=== PATIENT | male | born 1950 | race Caucasian/White ===

== ENCOUNTER 2016-11-26 15:59 | Emergency (ER) | payer OTHER ==
[~2016-11-26] VITALS: Ht 177.8 cm; Wt 76.4 kg
[~2016-11-26 15:59] MED LIST: AMLODIPINE BESYL5 MG PO; ASCORBIC ACID500 M3 PO; ASPIR 8181 M1 PO; ASPIR-LOW81 MG PO; ASPIRIN325 MG PO; ASPIRIN81 M2 PO; ATIVAN0.5 MG PO; ATORVASTATIN CA40 MG PO; ATORVASTATIN CA80 MG PO; AUGMENTIN875 MG PO; BIDIL1 TABLET PO; C-500500 M1 PO; CARDIZEM CD,CA180 MG PO; CARDIZEM CD120 M1 PO; CARDIZEM90 MG PO; CARTIA XT180 MG PO; CEFTIN500 MG PO; CEFUROXIME500 MG PO; CHILD ASPIRIN81 M1 PO; CLOPIDOGREL75 MG PO; COLACE100 MG PO; COREG25 M1 PO; DAILY VITE1 EAC1 PO; DIABETIC T100 MG/5 M PO; DICYCLOMINE HCL10 MG PO; DILTIAZEM 24HR180 MG PO; DOCUSATE SODIU100 MG PO; DULCOLAX10 MG PR; ENDOCET 5-3251 EACH PO; ESCITALOPRAM OX20 MG PO; FLEET ENEMA-AD118 ML PR; FLORASTOR250 MG PO; FOLIC ACID1 MG PO; FUROSEMIDE20 MG PO; FUROSEMIDE40 MG PO; GABAPENTIN100 MG PO; GABAPENTIN300 MG PO; GLIPIZIDE5 MG PO; GLUCOTROL XL10 MG PO; GLUCOTROL10 MG PO; GRALISE300 MG PO; GUAIFENESI100 MG/5 M PO; IMDUR30 MG PO; IMDUR60 MG PO; ISOSORBIDE MONO30 MG PO; K-DUR20 MEQ PO; KLOR-CON M2020 MEQ PO; LANTUS 3 M100 UNITS1 SC; LASIX20 MG PO; LEVAQUIN750 MG PO; LEVEMIR100 UNIT/2 SC; LEXAPRO20 MG PO; LIPITOR40 MG PO; LIPITOR80 MG PO; LISINOPRIL10 MG PO; LISINOPRIL5 MG PO; LOPRESSOR100 M1 PO; LOPRESSOR25 MG PO; LOPRESSOR50 MG PO; LOVENOX120 MG/0.8 SC; LOW DOSE ASPIRI81 M1 PO; MECLIZINE HCL25 MG PO; MELATIN3 MG PO; METFORMIN HCL500 MG PO; METOPROLOL SUC100 MG PO; METOPROLOL TAR100 MG PO; METOPROLOL TART25 MG PO; METOPROLOL TART50 MG PO; MIRTAZAPINE30 MG PO; MORPHINE SULFAT15 M1 PO; NEURONTIN100 MG PO; NEURONTIN300 MG PO; NEURONTIN600 MG PO; NITROSTAT0.4 MG SL; NORCO 5/3251 TABLET PO; NOVOLOG 10100 UNITS/ SC; NOVOLOG PE100 UNITS/ SC; OMEPRAZOLE20 MG PO; ONE DAILY1 EAC3 PO; OXYCODONE HCL10 MG PO; OXYCODONE HCL5 MG PO; PANTOPRAZOLE SO40 MG PO; PERCOCET 5/31 TABLET PO; PHILLIPS'400 MG/5 M PO; PLAVIX75 MG PO; POTASSIUM CHLO20 ME2 PO; PRADAXA150 MG PO; PRAVASTATIN SOD40 MG PO; PREDNISONE10 MG PO; PREDNISONE20 MG PO; PRILOSEC20 MG PO; PRINIVIL10 MG PO; PRINIVIL5 MG PO; PROAIR RESPICL90 MCG IH; PROBIOTIC1 EAC1 PO; PROTONIX40 MG PO; PROVENTIL,2.5 MG/3 M IH; REMERON15 M2 PO; RYBIX ODT50 MG PO; SEROQUEL12.5 MG PO; SERTRALINE HCL25 MG PO; SERTRALINE HCL50 MG PO; SIMVASTATIN20 MG PO; SPIRIVA RESPIMAT4 GM IH; SPIRIVA1 INHALATI IH; THERAGRAN1 TABLET PO; THIAMINE HCL100 MG PO; TRAMADOL HCL50 MG PO; TRAZODONE HCL50 MG PO; ULTRAM50 MG PO; VENTOLIN HFA18 GM IH; VITAMIN D400 UNIT PO; WARFARIN SODIUM1 MG PO; XARELTO20 MG PO; ZITHROMAX Z-PA250 MG PO; ZOLOFT25 MG PO
[2016-11-26] MEDS ORDERED: PERCOCET 5/31 TABLET PO (23:23)
[2016-11-27 01:38] VITALS: BP 97/77
== END 2016-11-27 01:39 | disposition home or self-care (01) ==
LOC: EME → EDBD 15:59 → EME 15:59
DX: I73.9 Peripheral vascular disease, unspecified (principal); E08.9 Diabetes mellitus due to underlying condition without complications; M79.604 Pain in right leg; M54.2 Cervicalgia; R07.81 Pleurodynia; E11.9 Type 2 diabetes mellitus without complications; J43.9 Emphysema, unspecified; M79.7 Fibromyalgia; J44.9 Chronic obstructive pulmonary disease, unspecified; E78.5 Hyperlipidemia, unspecified; Z79.4 Long term (current) use of insulin; Z95.5 Presence of coronary angioplasty implant and graft; Z87.891 Personal history of nicotine dependence; Z88.8 Allergy status to other drugs, medicaments and biological substances
CPT/HCPCS: 71101; 72040; 93926; 93971; 99281; 99285; J1885; J2270

== ENCOUNTER 2016-11-27 22:15 | Emergency (ER) | payer OTHER ==
[~2016-11-27] VITALS: Ht 177.8 cm; Wt 76.2 kg
[2016-11-27 23:44] LABS: HEMATOCRIT 33.5 % (38.0-50.0); MCH 26.8 PG (29.0-34.0); MCV 78.8 FL (86-99); MEAN PLAT.VOLUME 10.1 uM^3 (9.0-12.4); PLATELET COUNT 234 K/uL (156-360); RBC DIS.WIDTH-CV 15.1 % (11.8-14.6); RBC DIS.WIDTH-SD 42.1 % (39-53); RED BLOOD COUNT 4.25 M/uL (4.00-5.50); WHITE BLOOD COUNT 5.4 K/uL (4.1-10.2)
[2016-11-27 23:54] LABS: CHLORIDE 109 mEq/L (99-109); POTASSIUM 4.4 mEq/L (3.7-5.4); SODIUM 137 mEq/L (136-147)
[2016-11-27 23:56] LABS: GLUCOSE 139 mg/dL (70-99)
[2016-11-27 23:57] LABS: ANION GAP 11 MEQ/L (2-14)
[2016-11-28] LABS: GFR ESTIMATE (CALCULATED) > 59 mL/min/
[2016-11-28 00:01] LABS: UREA NITROGEN (BUN) 17 mg/dL (9-23)
[2016-11-28 00:06] LABS: TROP-I INTERPRETATION NEGATIVE; TROPONIN-I 0.02 ng/mL (0.0-0.30)
[2016-11-28 06:21] LABS: TROP-I INTERPRETATION NEGATIVE; TROPONIN-I 0.02 ng/mL (0.0-0.30)
[2016-11-28 08:44] LABS: POINT-OF-CARE METER ID UU13113778
[2016-11-28 10:41] VITALS: BP 126/92
== END 2016-11-28 10:42 | disposition home or self-care (01) ==
LOC: EME 22:15
PROVIDERS: Personal Emergency Response Attendant
DX: R07.89 Other chest pain (principal); M54.89 Other dorsalgia; I73.9 Peripheral vascular disease, unspecified; I10 Essential (primary) hypertension; E78.5 Hyperlipidemia, unspecified; E11.9 Type 2 diabetes mellitus without complications; Z79.4 Long term (current) use of insulin; Z79.02 Long term (current) use of antithrombotics/antiplatelets; Z87.891 Personal history of nicotine dependence; I48.91 Unspecified atrial fibrillation
CPT/HCPCS: 71020; 80048; 82948; 84484; 85027; 93005; 99281; 99284; J1885

== ENCOUNTER 2016-12-26 15:30 | Observation (INO) | payer OTHER ==
[~2016-12-26] VITALS: Ht 177.8 cm; Wt 77.2 kg
[2016-12-26 16:05] LABS: POINT-OF-CARE METER ID UU14100415
[2016-12-26 16:19] LABS: HEMATOCRIT 34.1 % (38.0-50.0); MCH 26.6 PG (29.0-34.0); MCHC 33.7 G/DL (30.0-36.0); MCV 78.8 FL (86-99); MEAN PLAT.VOLUME 9.7 uM^3 (9.0-12.4); PLATELET COUNT 228 K/uL (156-360); RBC DIS.WIDTH-CV 14.4 % (11.8-14.6); RBC DIS.WIDTH-SD 39.7 % (39-53); RED BLOOD COUNT 4.33 M/uL (4.00-5.50)
[2016-12-26 16:30] LABS: CHLORIDE 111 mEq/L (99-109); POTASSIUM 4.7 mEq/L (3.7-5.4); SODIUM 139 mEq/L (136-147)
[2016-12-26 16:31] LABS: GLUCOSE 326 mg/dL (70-99)
[2016-12-26 16:33] LABS: ANION GAP 8 MEQ/L (2-14)
[2016-12-26 16:35] LABS: GFR ESTIMATE (CALCULATED) 43 mL/min/
[2016-12-26 16:36] LABS: UREA NITROGEN (BUN) 18 mg/dL (9-23)
[2016-12-26 16:42] LABS: TROP-I INTERPRETATION NEGATIVE; TROPONIN-I 0.04 ng/mL (0.0-0.30)
[2016-12-26] MEDS ORDERED: LASIX20 MG PO (19:17)
[2016-12-26] MEDS ORDERED: C COMPLEX500 MG PO (19:17)
[2016-12-26] MEDS ORDERED: GLIPIZIDE5 MG PO (19:18)
[2016-12-26] MEDS ORDERED: POTASSIUM CHLO20 ME2 PO (19:19)
[2016-12-26] MEDS ORDERED: METOPROLOL SUC100 MG PO (19:20)
[2016-12-26 22:20] VITALS: BP 134/101
[2016-12-26 23:22] LABS: TROP-I INTERPRETATION NEGATIVE; TROPONIN-I 0.06 ng/mL (0.0-0.30)
[2016-12-27 04:29] LABS: POINT-OF-CARE METER ID UU14162513
[2016-12-27 05:05] VITALS: BP 123/87
[2016-12-27 05:43] LABS: ANION GAP 7 MEQ/L (2-14); CHLORIDE 110 MEQ/L (99-109); GFR ESTIMATE (CALCULATED) 46 mL/min/; POTASSIUM 4.8 MEQ/L (3.7-5.4); SAMPLE HEMOLYSIS CHECK 0; SAMPLE ICTERIC CHECK 0; SAMPLE LIPEMIA CHECK 0; SODIUM 139 MEQ/L (136-147); UREA NITROGEN (BUN) 19 mg/dL (9-23)
[2016-12-27 05:45] LABS: GLUCOSE 144 mg/dL (70-99)
[2016-12-27 05:48] LABS: TROP-I INTERPRETATION NEGATIVE; TROPONIN-I 0.04 ng/mL (0.0-0.30)
[2016-12-27 09:12] VITALS: BP 129/60
[2016-12-27 11:00] VITALS: BP 118/61
[2016-12-27 16:00] VITALS: BP 117/79
[2016-12-27 19:50] VITALS: BP 119/79
[2016-12-28 03:17] VITALS: BP 113/74
[2016-12-28 09:07] VITALS: BP 109/64
[2016-12-28 12:37] VITALS: BP 120/85
[2016-12-28] MEDS ORDERED: METOPROLOL SUC100 MG PO (16:19)
[2016-12-28] MEDS ORDERED: PRINIVIL10 MG PO (16:26)
[2016-12-28] MEDS ORDERED: PROTONIX40 MG PO (16:26)
[2016-12-28] MEDS ORDERED: ISOSORBIDE MONO30 MG PO (16:26)
[2016-12-28] MEDS ORDERED: GLIPIZIDE5 MG PO (16:26)
[2016-12-28] MEDS ORDERED: NEURONTIN300 MG PO (16:26)
[2016-12-28] MEDS ORDERED: PRADAXA150 MG PO (16:26)
[2016-12-28] MEDS ORDERED: DIAZEPAM5 MG PO (16:26)
[2016-12-28] MEDS ORDERED: PLAVIX75 MG PO (16:26)
[2016-12-28] MEDS ORDERED: LASIX20 MG PO (16:26)
[2016-12-28] MEDS ORDERED: LIPITOR80 MG PO (16:26)
[2016-12-28] MEDS ORDERED: LEVEMIR100 UNIT/2 SC (16:39)
== END 2016-12-28 16:59 | disposition home or self-care (01) ==
LOC: EME 15:30 → EDOF 19:44 → 5WEST 19:44
PROVIDERS: Emergency Medicine; Family Medicine; Internal Medicine
DX: R07.9 Chest pain, unspecified (principal); F43.21 Adjustment disorder with depressed mood; Z98.61 Coronary angioplasty status; F41.1 Generalized anxiety disorder; F09 Unspecified mental disorder due to known physiological condition; R51 Headache; I48.2 Chronic atrial fibrillation; I73.9 Peripheral vascular disease, unspecified; I12.9 Hypertensive chronic kidney disease with stage 1 through stage 4 chronic kidney disease, or unspecified chronic kidney disease; E11.65 Type 2 diabetes mellitus with hyperglycemia; E11.22 Type 2 diabetes mellitus with diabetic chronic kidney disease; N18.9 Chronic kidney disease, unspecified; E78.5 Hyperlipidemia, unspecified; Z79.4 Long term (current) use of insulin; Z88.1 Allergy status to other antibiotic agents; Z88.8 Allergy status to other drugs, medicaments and biological substances
CPT/HCPCS: 71020; 80048; 82948; 84484; 85027; 93005; 99281; 99285; G0378; J1815; J2270; J7040

== ENCOUNTER 2016-12-30 02:24 | Emergency (ER) | payer OTHER ==
[~2016-12-30] VITALS: Ht 177.8 cm; Wt 79.1 kg
[~2016-12-30 02:24] MED LIST changes: +C COMPLEX500 MG PO; +DIAZEPAM5 MG PO
[2016-12-30 04:18] LABS: BASE EXCESS -5.7 mEq/L (-3 to +3); BICARBONATE 17.3 mEq/L (22-26); COMMENTS - BLOOD GASES C+; PCO2 26 mm Hg (35-45); PO2 102 mm Hg (80-100); SITE RR; TOTAL RESP RATE 23 resp/min; pH 7.43 (7.35-7.45)
[2016-12-30 04:58] LABS: MCH 26.5 PG (29.0-34.0); MCHC 33.5 G/DL (30.0-36.0); MCV 79.1 FL (86-99); MEAN PLAT.VOLUME 10.5 uM^3 (9.0-12.4); PLATELET COUNT 205 K/uL (156-360); RBC DIS.WIDTH-CV 14.5 % (11.8-14.6); RED BLOOD COUNT 4.3 M/uL (4.00-5.50); WHITE BLOOD COUNT 5.8 K/uL (4.1-10.2)
[2016-12-30 05:03] LABS: CHLORIDE 110 MEQ/L (99-109); GFR ESTIMATE (CALCULATED) 46 mL/min/; GLUCOSE 199 mg/dL (70-99); SODIUM 140 MEQ/L (136-147); UREA NITROGEN (BUN) 19 mg/dL (9-23)
[2016-12-30 05:04] LABS: CARBON DIOXIDE (BICARBONATE) 18.3 MEQ/L (20-31)
[2016-12-30 05:20] LABS: TROP-I INTERPRETATION NEGATIVE; TROPONIN-I 0.05 ng/mL (0.0-0.30)
[2016-12-30 06:50] VITALS: BP 124/85
== END 2016-12-30 06:58 | disposition home or self-care (01) ==
LOC: EME → EDBD 02:24 → EME 06:58
PROVIDERS: Emergency Medicine
DX: R07.9 Chest pain, unspecified (principal); E11.9 Type 2 diabetes mellitus without complications; E78.5 Hyperlipidemia, unspecified; I10 Essential (primary) hypertension; I25.2 Old myocardial infarction; F17.200 Nicotine dependence, unspecified, uncomplicated; Z95.5 Presence of coronary angioplasty implant and graft
CPT/HCPCS: 36600; 71020; 80048; 82009; 82803; 83605; 83880; 84484; 85027; 93005; 99281; 99285; J2270; J2405; J7030

== ENCOUNTER 2017-01-22 16:38 | Observation (INO) | payer OTHER ==
[~2017-01-22] VITALS: Ht 177.8 cm; Wt 78.0 kg
[2017-01-22 18:05] LABS: EOSINOPHIL (%) 3.5 % (0-5); EOSINOPHIL COUNT 0.2 K/uL (0-0.3); HEMATOCRIT 34.7 % (38.0-50.0); IMMATURE GRANULOCYTE (%) 0.8 % (0.0-0.7); IMMATURE GRANULOCYTE COUNT 0.5 K/uL; LYMPHOCYTE COUNT 1.5 K/uL (1.0-2.8); MCHC 32.9 G/DL (30.0-36.0); MONOCYTE (%) 12.9 % (3-12); MONOCYTE COUNT 0.8 K/uL (0-0.8); NEUTROPHIL (%) 57.5 % (45-76); NEUTROPHIL COUNT 3.6 K/uL (1.8-6.4); PLATELET COUNT 208 K/uL (156-360); RBC DIS.WIDTH-CV 15.2 % (11.8-14.6); RBC DIS.WIDTH-SD 42.2 % (39-53); RED BLOOD COUNT 4.39 M/uL (4.00-5.50); WHITE BLOOD COUNT 6.2 K/uL (4.1-10.2)
[2017-01-22 18:14] LABS: CHLORIDE 109 mEq/L (99-109); POTASSIUM 4.7 mEq/L (3.7-5.4); SODIUM 139 mEq/L (136-147)
[2017-01-22 18:15] LABS: INTER. NORMALIZED RATIO 1.2; PTT 40.5 (25-32)
[2017-01-22 18:16] LABS: GLUCOSE 76 mg/dL (70-99)
[2017-01-22 18:17] LABS: ANION GAP 10 MEQ/L (2-14)
[2017-01-22 18:20] LABS: GFR ESTIMATE (CALCULATED) 46 mL/min/; UREA NITROGEN (BUN) 25 mg/dL (9-23)
[2017-01-22 18:24] LABS: TROP-I INTERPRETATION NEGATIVE; TROPONIN-I 0.05 ng/mL (0.0-0.30)
[2017-01-22] MEDS ORDERED: PLAVIX75 MG PO (20:01)
[2017-01-22] MEDS ORDERED: LEVEMIR100 UNIT/2 SC (20:02)
[2017-01-22] MEDS ORDERED: ACIDOPHILUS LA1 EAC1 PO (20:03)
[2017-01-22] MEDS ORDERED: LO-DOSE ASPIRIN81 M1 PO (20:05)
[2017-01-22 20:20] LABS: POINT-OF-CARE METER ID UU13113702
[2017-01-22 21:19] LABS: INFLUENZA A VIRAL ANTIGEN NEGATIVE; INFLUENZA B VIRAL ANTIGEN NEGATIVE
[2017-01-22 21:43] VITALS: BP 157/97
[2017-01-23 00:06] LABS: TROP-I INTERPRETATION NEGATIVE; TROPONIN-I 0.07 ng/mL (0.0-0.30)
[2017-01-23 00:12] VITALS: BP 127/81
[2017-01-23 04:41] VITALS: BP 124/83
[2017-01-23 07:02] LABS: TROP-I INTERPRETATION NEGATIVE; TROPONIN-I 0.04 ng/mL (0.0-0.30)
[2017-01-23 08:35] VITALS: BP 138/76
[2017-01-23 12:13] VITALS: BP 137/83
[2017-01-23 12:26] LABS: POINT-OF-CARE METER ID UU14162513
== END 2017-01-23 13:35 | disposition home or self-care (01) ==
LOC: EME 16:38 → 5WEST 19:21 → EDOF 19:21 → 5WEST 20:24
PROVIDERS: Emergency Medicine; Hospitalist; Internal Medicine; Physician Assistant
DX: R07.89 Other chest pain (principal); I48.91 Unspecified atrial fibrillation; I48.92 Unspecified atrial flutter; I11.0 Hypertensive heart disease with heart failure; I50.9 Heart failure, unspecified; Z91.19 Patient's noncompliance with other medical treatment and regimen; T38.3X1A Poisoning by insulin and oral hypoglycemic [antidiabetic] drugs, accidental (unintentional), initial encounter; I08.3 Combined rheumatic disorders of mitral, aortic and tricuspid valves; I27.2 Other secondary pulmonary hypertension; I25.10 Atherosclerotic heart disease of native coronary artery without angina pectoris; I65.23 Occlusion and stenosis of bilateral carotid arteries; M79.7 Fibromyalgia; F32.9 Major depressive disorder, single episode, unspecified; E11.9 Type 2 diabetes mellitus without complications; I25.2 Old myocardial infarction; K21.9 Gastro-esophageal reflux disease without esophagitis; Z95.5 Presence of coronary angioplasty implant and graft; J45.20 Mild intermittent asthma, uncomplicated; F41.9 Anxiety disorder, unspecified
CPT/HCPCS: 71020; 80048; 82948; 84484; 85025; 85610; 85730; 87502; 93005; 99281; 99285; G0378; J1815; J1885; J2405; J7030

== ENCOUNTER 2017-01-30 06:43 | Observation (INO) | payer OTHER ==
[~2017-01-30] VITALS: Ht 177.8 cm; Wt 84.3 kg
[~2017-01-30 06:43] MED LIST changes: +ACIDOPHILUS LA1 EAC1 PO; +LO-DOSE ASPIRIN81 M1 PO
[2017-01-30 08:12] LABS: EOSINOPHIL (%) 5.6 % (0-5); EOSINOPHIL COUNT 0.3 K/uL (0-0.3); HEMATOCRIT 34.4 % (38.0-50.0); IMMATURE GRANULOCYTE (%) 0.2 % (0.0-0.7); IMMATURE GRANULOCYTE COUNT 0.1 K/uL; LYMPHOCYTE COUNT 0.9 K/uL (1.0-2.8); MCH 26.2 PG (29.0-34.0); MCHC 32.6 G/DL (30.0-36.0); MCV 80.6 FL (86-99); MONOCYTE COUNT 0.7 K/uL (0-0.8); NEUTROPHIL (%) 59.7 % (45-76); NEUTROPHIL COUNT 2.8 K/uL (1.8-6.4); PLATELET COUNT 179 K/uL (156-360); RBC DIS.WIDTH-CV 15.5 % (11.8-14.6); RBC DIS.WIDTH-SD 43.9 % (39-53); RED BLOOD COUNT 4.27 M/uL (4.00-5.50); WHITE BLOOD COUNT 4.6 K/uL (4.1-10.2)
[2017-01-30 08:24] LABS: CHLORIDE 112 mEq/L (99-109); POTASSIUM 5.5 mEq/L (3.7-5.4); SODIUM 140 mEq/L (136-147)
[2017-01-30 08:26] LABS: GLUCOSE 244 mg/dL (70-99)
[2017-01-30 08:28] LABS: ANION GAP 8 MEQ/L (2-14)
[2017-01-30 08:30] LABS: GFR ESTIMATE (CALCULATED) 38 mL/min/
[2017-01-30 08:31] LABS: UREA NITROGEN (BUN) 30 mg/dL (9-23)
[2017-01-30 08:32] LABS: TROP-I INTERPRETATION NEGATIVE; TROPONIN-I 0.05 ng/mL (0.0-0.30)
[2017-01-30 08:33] LABS: CREATINE KINASE 191 IU/L (1-294)
[2017-01-30] MEDS ORDERED: FUROSEMIDE20 MG PO (09:34)
[2017-01-30 10:29] VITALS: BP 130/92
== END 2017-01-30 11:06 | disposition left against medical advice (07) ==
LOC: EME → EDBD 06:43 → EDOF 09:37 → 5WEST 10:52
PROVIDERS: Emergency Medicine
DX: R07.9 Chest pain, unspecified (principal); E11.9 Type 2 diabetes mellitus without complications; Z91.19 Patient's noncompliance with other medical treatment and regimen; I25.2 Old myocardial infarction; J44.9 Chronic obstructive pulmonary disease, unspecified; G89.29 Other chronic pain; M79.605 Pain in left leg; M79.604 Pain in right leg; Z95.5 Presence of coronary angioplasty implant and graft; F32.9 Major depressive disorder, single episode, unspecified; I69.398 Other sequelae of cerebral infarction; H54.41 Blindness, right eye, normal vision left eye; G43.909 Migraine, unspecified, not intractable, without status migrainosus; F17.200 Nicotine dependence, unspecified, uncomplicated; M79.7 Fibromyalgia; E78.5 Hyperlipidemia, unspecified; I10 Essential (primary) hypertension
CPT/HCPCS: 71010; 80048; 82550; 84484; 85025; 93005; 99281; 99284; G0378

== ENCOUNTER 2017-01-30 23:25 | Emergency (ER) | payer OTHER ==
[~2017-01-30] VITALS: Ht 177.8 cm; Wt 83.1 kg
[2017-01-30 23:27] VITALS: BP 129/90
== END 2017-01-31 00:25 | disposition left against medical advice (07) ==
LOC: EME 23:25
DX: R53.81 Other malaise (principal); F10.99 Alcohol use, unspecified with unspecified alcohol-induced disorder; Z53.21 Procedure and treatment not carried out due to patient leaving prior to being seen by health care provider

== ENCOUNTER 2017-02-02 00:31 | Emergency (ER) | payer OTHER ==
[~2017-02-02] VITALS: Ht 177.8 cm; Wt 80.6 kg
[2017-02-02 00:56] LABS: HEMATOCRIT 33.9 % (38.0-50.0); MCH 25.8 PG (29.0-34.0); MCHC 31.9 G/DL (30.0-36.0); MCV 80.9 FL (86-99); MEAN PLAT.VOLUME 9.8 uM^3 (9.0-12.4); PLATELET COUNT 231 K/uL (156-360); RBC DIS.WIDTH-CV 15.3 % (11.8-14.6); RBC DIS.WIDTH-SD 44.6 % (39-53); RED BLOOD COUNT 4.19 M/uL (4.00-5.50); WHITE BLOOD COUNT 5.8 K/uL (4.1-10.2)
[2017-02-02 01:10] LABS: CHLORIDE 110 mEq/L (99-109); POTASSIUM 4.4 mEq/L (3.7-5.4); SODIUM 139 mEq/L (136-147)
[2017-02-02 01:11] LABS: GLUCOSE 143 mg/dL (70-99)
[2017-02-02 01:13] LABS: ANION GAP 11 MEQ/L (2-14)
[2017-02-02 01:15] LABS: GFR ESTIMATE (CALCULATED) 41 mL/min/
[2017-02-02 01:16] LABS: UREA NITROGEN (BUN) 29 mg/dL (9-23)
[2017-02-02 01:22] LABS: TROP-I INTERPRETATION NEGATIVE; TROPONIN-I 0.04 ng/mL (0.0-0.30)
[2017-02-02 01:58] LABS: INTER. NORMALIZED RATIO 1.2; PROTHROMBIN TIME 11.9 (9.2-11.2); PTT 36.2 (25-32)
[2017-02-02 04:24] LABS: TROP-I INTERPRETATION NEGATIVE; TROPONIN-I 0.05 ng/mL (0.0-0.30)
[2017-02-02 04:45] VITALS: BP 144/88
== END 2017-02-02 05:00 | disposition home or self-care (01) ==
LOC: EME → EDBD 00:31 → EME 05:00
PROVIDERS: Emergency Medicine
DX: R07.9 Chest pain, unspecified (principal); I48.91 Unspecified atrial fibrillation; R51 Headache; N18.9 Chronic kidney disease, unspecified; I25.10 Atherosclerotic heart disease of native coronary artery without angina pectoris; E11.9 Type 2 diabetes mellitus without complications; J44.9 Chronic obstructive pulmonary disease, unspecified; M79.7 Fibromyalgia; E78.5 Hyperlipidemia, unspecified; I10 Essential (primary) hypertension; I25.2 Old myocardial infarction; K21.9 Gastro-esophageal reflux disease without esophagitis; R56.9 Unspecified convulsions; Z86.73 Personal history of transient ischemic attack (TIA), and cerebral infarction without residual deficits; Z98.61 Coronary angioplasty status; Z79.82 Long term (current) use of aspirin; F17.200 Nicotine dependence, unspecified, uncomplicated
CPT/HCPCS: 71010; 80048; 84484; 85027; 85610; 85730; 93005; 99281; 99285; J1885

== ENCOUNTER 2017-02-07 18:19 | Observation (INO) | payer OTHER ==
[~2017-02-07] VITALS: Ht 177.8 cm; Wt 82.5 kg
[2017-02-07 18:52] LABS: EOSINOPHIL (%) 1.9 % (0-5); EOSINOPHIL COUNT 0.1 K/uL (0-0.3); HEMATOCRIT 35.9 % (38.0-50.0); IMMATURE GRANULOCYTE (%) 0.4 % (0.0-0.7); INSTRUMENT ABS NEUTROPHIL CT 4.8 K/uL; LYMPHOCYTE COUNT 1.3 K/uL (1.0-2.8); MCH 25.7 PG (29.0-34.0); MCV 80.1 FL (86-99); MEAN PLAT.VOLUME 9.2 uM^3 (9.0-12.4); MONOCYTE (%) 9.9 % (3-12); MONOCYTE COUNT 0.7 K/uL (0-0.8); NEUTROPHIL (%) 68.4 % (45-76); NEUTROPHIL COUNT 4.8 K/uL (1.8-6.4); PLATELET COUNT 254 K/uL (156-360); RBC DIS.WIDTH-CV 15.1 % (11.8-14.6); RED BLOOD COUNT 4.48 M/uL (4.00-5.50)
[2017-02-07 19:05] LABS: CHLORIDE 109 mEq/L (99-109); POTASSIUM 4.4 mEq/L (3.7-5.4); SODIUM 135 mEq/L (136-147)
[2017-02-07 19:08] LABS: GLUCOSE 178 mg/dL (70-99)
[2017-02-07 19:09] LABS: ANION GAP 12 MEQ/L (2-14); TOTAL BILIRUBIN 0.3 mg/dL (0.0-1.0)
[2017-02-07 19:10] LABS: SERUM ETHYL ALCOHOL 47 mg/dL
[2017-02-07 19:11] LABS: ALKALINE PHOSPHATASE 75 IU/L (3-129); GFR ESTIMATE (CALCULATED) 32 mL/min/
[2017-02-07 19:12] LABS: UREA NITROGEN (BUN) 32 mg/dL (9-23)
[2017-02-07 19:15] LABS: LIPASE 119 U/L (1.0-51.0)
[2017-02-07 19:18] LABS: TROP-I INTERPRETATION NEGATIVE; TROPONIN-I 0.04 ng/mL (0.0-0.30)
[2017-02-07 19:30] LABS: ADD MIUA? YES; BILIRUBIN NEGATIVE; BLOOD NEGATIVE; COLOR STRAW ((YELLOW)); GLUCOSE (STRIP) 50; KETONES NEGATIVE; LEUKOCYTES NEGATIVE; NITRITE NEGATIVE; PROTEIN (STRIP) 100; SPECIFIC GRAVITY 1.006 (1.000-1.030); UROBILINOGEN 0.2 MG/DL (0.2-1.0)
[2017-02-07 19:41] LABS: BACTERIA NONE SEEN /HPF; EPITHELIAL CELLS NONE SEEN /HPF; HYALINE CASTS 0-5 /LPF; MUCUS TRACE /LPF; RED BLOOD CELLS 0-5 /HPF (0-5); UCUL ADDED? NO; WHITE BLOOD CELLS 0-5 /HPF (0-5)
[2017-02-07] MEDS ORDERED: LISINOPRIL5 MG PO (21:26)
[2017-02-07] MEDS ORDERED: GABAPENTIN100 MG PO (21:27)
[2017-02-07] MEDS ORDERED: GLIPIZIDE5 MG PO (21:28)
[2017-02-07 22:55] VITALS: BP 156/85
[2017-02-08 00:04] VITALS: BP 145/69
[2017-02-08 03:47] VITALS: BP 176/97
[2017-02-08 06:26] LABS: EOSINOPHIL (%) 3.6 % (0-5); EOSINOPHIL COUNT 0.2 K/uL (0-0.3); HEMATOCRIT 34.2 % (38.0-50.0); IMMATURE GRANULOCYTE (%) 0.5 % (0.0-0.7); INSTRUMENT ABS NEUTROPHIL CT 3.4 K/uL; LYMPHOCYTE COUNT 1.6 K/uL (1.0-2.8); MCH 25.4 PG (29.0-34.0); MCHC 30.7 G/DL (30.0-36.0); MCV 82.8 FL (86-99); MEAN PLAT.VOLUME 10.2 uM^3 (9.0-12.4); MONOCYTE (%) 13.7 % (3-12); MONOCYTE COUNT 0.8 K/uL (0-0.8); NEUTROPHIL (%) 55.7 % (45-76); NEUTROPHIL COUNT 3.4 K/uL (1.8-6.4); PLATELET COUNT 215 K/uL (156-360); RBC DIS.WIDTH-CV 15.6 % (11.8-14.6); RBC DIS.WIDTH-SD 46.5 % (39-53); RED BLOOD COUNT 4.13 M/uL (4.00-5.50); WHITE BLOOD COUNT 6.1 K/uL (4.1-10.2)
[2017-02-08 06:49] LABS: ANION GAP 8 MEQ/L (2-14); CHLORIDE 110 MEQ/L (99-109); GFR ESTIMATE (CALCULATED) 32 mL/min/; GLUCOSE 133 mg/dL (70-99); LIPASE 88 U/L (1.0-51.0); POTASSIUM 4.7 MEQ/L (3.7-5.4); SAMPLE HEMOLYSIS CHECK 0; SAMPLE ICTERIC CHECK 0; SAMPLE LIPEMIA CHECK 0; SODIUM 138 MEQ/L (136-147); UREA NITROGEN (BUN) 36 mg/dL (9-23)
[2017-02-08 07:08] LABS: TROP-I INTERPRETATION NEGATIVE; TROPONIN-I 0.04 ng/mL (0.0-0.30)
[2017-02-08 08:01] VITALS: BP 141/83
[2017-02-08 11:39] VITALS: BP 143/84
[2017-02-08 13:03] LABS: TROP-I INTERPRETATION NEGATIVE; TROPONIN-I 0.04 ng/mL (0.0-0.30)
[2017-02-08 15:33] VITALS: BP 108/67
[2017-02-08 16:25] LABS: ANION GAP 6 MEQ/L (2-14); CHLORIDE 112 MEQ/L (99-109); SAMPLE HEMOLYSIS CHECK 0; SAMPLE ICTERIC CHECK 0; SAMPLE LIPEMIA CHECK 0; SODIUM 138 MEQ/L (136-147)
[2017-02-08 16:30] LABS: GFR ESTIMATE (CALCULATED) 41 mL/min/; GLUCOSE 139 mg/dL (70-99); UREA NITROGEN (BUN) 31 mg/dL (9-23)
[2017-02-08 20:43] LABS: POINT-OF-CARE METER ID UU13113700
== END 2017-02-08 21:39 | disposition home or self-care (01) ==
LOC: EME → EDBD 18:19 → EDOF 22:03 → 5WEST 22:03 → EDOF 22:03 → 5WEST 22:46
PROVIDERS: Emergency Medicine; Hospitalist; Internal Medicine
DX: N17.9 Acute kidney failure, unspecified (principal); E86.0 Dehydration; N20.0 Calculus of kidney; R07.89 Other chest pain; R10.13 Epigastric pain; E11.9 Type 2 diabetes mellitus without complications; M54.5 Low back pain; I25.10 Atherosclerotic heart disease of native coronary artery without angina pectoris; F41.9 Anxiety disorder, unspecified; F17.200 Nicotine dependence, unspecified, uncomplicated; I10 Essential (primary) hypertension; I48.91 Unspecified atrial fibrillation; I08.1 Rheumatic disorders of both mitral and tricuspid valves; I27.2 Other secondary pulmonary hypertension; Z95.5 Presence of coronary angioplasty implant and graft; Z86.73 Personal history of transient ischemic attack (TIA), and cerebral infarction without residual deficits; J45.909 Unspecified asthma, uncomplicated; I73.9 Peripheral vascular disease, unspecified
CPT/HCPCS: 71020; 74176; 80048; 80048 91; 80053; 81003; 82948; 83605; 83690; 84484; 85025; 93005; 99281; 99285; G0378; G0480; J1170; J1885; J2405; J3010; J7030

== ENCOUNTER 2017-02-16 15:36 | Emergency (ER) | payer OTHER ==
[~2017-02-16] VITALS: Ht 177.8 cm; Wt 80.3 kg
[2017-02-16 15:59] LABS: HEMATOCRIT 34.9 % (38.0-50.0); MCH 25.5 PG (29.0-34.0); MCHC 32.1 G/DL (30.0-36.0); MCV 79.3 FL (86-99); MEAN PLAT.VOLUME 9.8 uM^3 (9.0-12.4); PLATELET COUNT 259 K/uL (156-360); RBC DIS.WIDTH-CV 15.3 % (11.8-14.6); RBC DIS.WIDTH-SD 44.3 % (39-53)
[2017-02-16 16:19] LABS: TROP-I INTERPRETATION NEGATIVE; TROPONIN-I 0.02 ng/mL (0.0-0.30)
[2017-02-16 16:22] LABS: CHLORIDE 110 mEq/L (99-109); POTASSIUM 5.3 mEq/L (3.7-5.4); SODIUM 136 mEq/L (136-147)
[2017-02-16 16:24] LABS: GLUCOSE 218 mg/dL (70-99)
[2017-02-16 16:25] LABS: ANION GAP 10 MEQ/L (2-14)
[2017-02-16 16:28] LABS: GFR ESTIMATE (CALCULATED) 41 mL/min/
[2017-02-16 16:29] LABS: UREA NITROGEN (BUN) 30 mg/dL (9-23)
[2017-02-16 20:31] VITALS: BP 114/93
== END 2017-02-16 20:34 | disposition home or self-care (01) ==
LOC: EME → EDBD 15:36 → EME 15:36
DX: E86.0 Dehydration (principal); W18.30XA Fall on same level, unspecified, initial encounter; Y92.009 Unspecified place in unspecified non-institutional (private) residence as the place of occurrence of the external cause; E11.9 Type 2 diabetes mellitus without complications; J44.9 Chronic obstructive pulmonary disease, unspecified; M79.7 Fibromyalgia; E78.5 Hyperlipidemia, unspecified; I10 Essential (primary) hypertension; I25.2 Old myocardial infarction; K21.9 Gastro-esophageal reflux disease without esophagitis; R56.9 Unspecified convulsions; Z86.73 Personal history of transient ischemic attack (TIA), and cerebral infarction without residual deficits; Z98.61 Coronary angioplasty status; Z79.4 Long term (current) use of insulin; F17.200 Nicotine dependence, unspecified, uncomplicated
CPT/HCPCS: 71020; 80048; 84484; 85027; 93005; 99281; 99285; J7030

== ENCOUNTER 2017-02-21 21:40 | Observation (INO) | payer OTHER ==
[~2017-02-21] VITALS: Ht 177.8 cm; Wt 80.5 kg
[2017-02-21 22:19] LABS: EOSINOPHIL (%) 2.4 % (0-5); EOSINOPHIL COUNT 0.2 K/uL (0-0.3); HEMATOCRIT 35.9 % (38.0-50.0); IMMATURE GRANULOCYTE (%) 0.5 % (0.0-0.7); INSTRUMENT ABS NEUTROPHIL CT 5.2 K/uL; LYMPHOCYTE COUNT 1.4 K/uL (1.0-2.8); MCH 25.7 PG (29.0-34.0); MCV 80.3 FL (86-99); MEAN PLAT.VOLUME 9.5 uM^3 (9.0-12.4); MONOCYTE COUNT 0.8 K/uL (0-0.8); NEUTROPHIL (%) 68.6 % (45-76); NEUTROPHIL COUNT 5.2 K/uL (1.8-6.4); PLATELET COUNT 275 K/uL (156-360); RBC DIS.WIDTH-SD 43.8 % (39-53); RED BLOOD COUNT 4.47 M/uL (4.00-5.50); WHITE BLOOD COUNT 7.6 K/uL (4.1-10.2)
[2017-02-21 22:29] LABS: CHLORIDE 112 mEq/L (99-109); POTASSIUM 4.9 mEq/L (3.7-5.4); SODIUM 138 mEq/L (136-147)
[2017-02-21 22:30] LABS: GLUCOSE 116 mg/dL (70-99)
[2017-02-21 22:32] LABS: ANION GAP 12 MEQ/L (2-14)
[2017-02-21 22:34] LABS: GFR ESTIMATE (CALCULATED) 38 mL/min/
[2017-02-21 22:35] LABS: UREA NITROGEN (BUN) 39 mg/dL (9-23)
[2017-02-21 22:41] LABS: TROP-I INTERPRETATION NEGATIVE; TROPONIN-I 0.04 ng/mL (0.0-0.30)
[2017-02-21 22:48] LABS: INTER. NORMALIZED RATIO 1.3; PROTHROMBIN TIME 13.3 (9.2-11.2); PTT 42.5 (25-32)
[2017-02-22 01:12] LABS: TROP-I INTERPRETATION NEGATIVE; TROPONIN-I 0.04 ng/mL (0.0-0.30)
[2017-02-22 02:51] LABS: CHLORIDE 115 mEq/L (99-109); POTASSIUM 4.6 mEq/L (3.7-5.4); SODIUM 137 mEq/L (136-147)
[2017-02-22 02:53] LABS: GLUCOSE 133 mg/dL (70-99)
[2017-02-22 02:55] LABS: ANION GAP 8 MEQ/L (2-14)
[2017-02-22 02:57] LABS: GFR ESTIMATE (CALCULATED) 43 mL/min/
[2017-02-22 02:58] LABS: UREA NITROGEN (BUN) 37 mg/dL (9-23)
[2017-02-22 03:27] LABS: TOTAL BILIRUBIN 0.2 mg/dL (0.0-1.0)
[2017-02-22 03:28] LABS: ALKALINE PHOSPHATASE 69 IU/L (3-129)
[2017-02-22 03:31] LABS: DIRECT BILIRUBIN 0.1 mg/dL (0.0-0.3)
[2017-02-22 03:36] LABS: BASE EXCESS -9.9 mEq/L (-3 to +3); BICARBONATE 14.4 mEq/L (22-26); CARBOXY HGB 1.9 % (0-5); METHEMOGLOBIN 0.7 % (0-1.5); PCO2 26 mm Hg (35-45); PO2 107 mm Hg (80-100); pH 7.35 (7.35-7.45)
[2017-02-22 03:37] LABS: COMMENTS - BLOOD GASES C+A+; DEVICE ROOM AIR; SITE RR; TOTAL RESP RATE 18 resp/min
[2017-02-22 04:42] VITALS: BP 109/71
[2017-02-22 07:00] VITALS: BP 140/77
[2017-02-22 08:58] LABS: ADD MIUA? YES; BILIRUBIN NEGATIVE; BLOOD NEGATIVE; COLOR YELLOW ((YELLOW)); GLUCOSE (STRIP) 50; KETONES NEGATIVE; LEUKOCYTES NEGATIVE; NITRITE NEGATIVE; PROTEIN (STRIP) >=500; SPECIFIC GRAVITY 1.018 (1.000-1.030); UROBILINOGEN 0.2 MG/DL (0.2-1.0)
[2017-02-22 09:17] LABS: BACTERIA RARE /HPF; EPITHELIAL CELLS NONE SEEN /HPF; MUCUS TRACE /LPF; RED BLOOD CELLS 0-5 /HPF (0-5); UCUL ADDED? NO; WHITE BLOOD CELLS 0-5 /HPF (0-5)
[2017-02-22 09:26] LABS: AMPHETAMINES QUANT VALUE 0 NG/ML; BARBITUATES QUANT VALUE 0 NG/ML; BENZODIAZEPINES QUANT VALUE 0 NG/ML; BENZODIAZEPINES, URINE SCREEN Negative (200 ng/mL); MARIJUANA QUANT VALUE 0 NG/ML; PHENCYCLIDINE QUANT VALUE 0 NG/ML
[2017-02-22 09:28] LABS: POINT-OF-CARE METER ID UU13113700
[2017-02-22 09:48] LABS: ALKALINE PHOSPHATASE 60 IU/L (3-129); ANION GAP 5 MEQ/L (2-14); CHLORIDE 109 MEQ/L (99-109); GFR ESTIMATE (CALCULATED) 43 mL/min/; GLUCOSE 164 mg/dL (70-99); MAGNESIUM 1.9 mg/dl (1.3-2.7); POTASSIUM 4.7 MEQ/L (3.7-5.4); SAMPLE HEMOLYSIS CHECK 0; SAMPLE ICTERIC CHECK 0; SAMPLE LIPEMIA CHECK 0; SODIUM 134 MEQ/L (136-147); TOTAL BILIRUBIN 0.3 MG/DL (0.0-1.0); UREA NITROGEN (BUN) 36 mg/dL (9-23)
[2017-02-22 10:08] LABS: CREATINE KINASE 52 IU/L (1-294)
[2017-02-22 10:17] LABS: Estimated Average Glucose 177 mg/dL (70-123)
[2017-02-22 10:25] LABS: HEMOGLOBIN A1c (GLYCOHEMOGLOB) 7.8 % HGB (Below 5.7)
[2017-02-22 11:22] VITALS: BP 106/62
[2017-02-22 12:24] LABS: POINT-OF-CARE METER ID UU13113700
[2017-02-22] MEDS ORDERED: PRADAXA150 MG PO (15:41)
[2017-02-22 16:38] LABS: POINT-OF-CARE METER ID UU13113700
[2017-02-22 19:00] VITALS: BP 154/77
[2017-02-22 22:44] LABS: POINT-OF-CARE METER ID UU13113700
[2017-02-23] VITALS: BP 163/82
[2017-02-23 04:00] VITALS: BP 148/72
[2017-02-23 06:53] LABS: EOSINOPHIL (%) 2.2 % (0-5); EOSINOPHIL COUNT 0.2 K/uL (0-0.3); HEMATOCRIT 33.8 % (38.0-50.0); IMMATURE GRANULOCYTE (%) 0.4 % (0.0-0.7); LYMPHOCYTE COUNT 0.8 K/uL (1.0-2.8); MCHC 31.1 G/DL (30.0-36.0); MCV 80.5 FL (86-99); MEAN PLAT.VOLUME 10.1 uM^3 (9.0-12.4); MONOCYTE (%) 9.1 % (3-12); MONOCYTE COUNT 0.9 K/uL (0-0.8); NEUTROPHIL (%) 79.5 % (45-76); PLATELET COUNT 212 K/uL (156-360); RBC DIS.WIDTH-CV 15.4 % (11.8-14.6); RBC DIS.WIDTH-SD 44.8 % (39-53); WHITE BLOOD COUNT 10.1 K/uL (4.1-10.2)
[2017-02-23 07:13] VITALS: BP 189/99
[2017-02-23 09:01] LABS: CHLORIDE 113 mEq/L (99-109); POTASSIUM 4.8 mEq/L (3.7-5.4)
[2017-02-23 09:02] LABS: SODIUM 138 mEq/L (136-147)
[2017-02-23 09:03] LABS: GLUCOSE 134 mg/dL (70-99)
[2017-02-23 09:05] LABS: ANION GAP 8 MEQ/L (2-14)
[2017-02-23 09:07] LABS: GFR ESTIMATE (CALCULATED) 50 mL/min/
[2017-02-23 09:08] LABS: UREA NITROGEN (BUN) 33 mg/dL (9-23)
[2017-02-23 10:32] LABS: INTER. NORMALIZED RATIO 1.2; PROTHROMBIN TIME 12.1 (9.2-11.2); PTT 36.7 (25-32)
[2017-02-23 12:14] VITALS: BP 156/95
[2017-02-23] MEDS ORDERED: FUROSEMIDE20 MG PO (13:11)
[2017-02-23] MEDS ORDERED: LIPITOR80 MG PO (13:11)
[2017-02-23] MEDS ORDERED: PLAVIX75 MG PO (13:11)
[2017-02-23] MEDS ORDERED: PROTONIX40 MG PO (13:11)
[2017-02-23] MEDS ORDERED: NABI650T PO (13:11)
[2017-02-23] MEDS ORDERED: PRADAXA150 MG PO (13:11)
[2017-02-23] MEDS ORDERED: LEVEMIR100 UNIT/2 SC (13:11)
[2017-02-23] MEDS ORDERED: GABAPENTIN100 MG PO (13:11)
[2017-02-23] MEDS ORDERED: ISOSORBIDE MONO30 MG PO (13:11)
[2017-02-23] MEDS ORDERED: METOPROLOL SUC100 MG PO (13:11)
[2017-02-23] MEDS ORDERED: AMLODIPINE BESYL5 MG PO (13:11)
[2017-02-23] MEDS ORDERED: LISINOPRIL5 MG PO (13:11)
[2017-02-23] MEDS ORDERED: LO-DOSE ASPIRIN81 M1 PO (13:11)
[2017-02-23] MEDS ORDERED: GLIPIZIDE5 MG PO (13:11)
[2017-02-23 20:00] VITALS: BP 116/75
[2017-02-23 22:32] LABS: POINT-OF-CARE METER ID UU13113831
[2017-02-23 23:58] VITALS: BP 142/69
[2017-02-24 04:00] VITALS: BP 154/88
[2017-02-24 07:31] LABS: TROP-I INTERPRETATION NEGATIVE; TROPONIN-I 0.05 ng/mL (0.0-0.30)
[2017-02-24 07:35] LABS: ANION GAP 8 MEQ/L (2-14); CHLORIDE 111 MEQ/L (99-109); GFR ESTIMATE (CALCULATED) 43 mL/min/; GLUCOSE 131 mg/dL (70-99); MAGNESIUM 1.9 mg/dl (1.3-2.7); POTASSIUM 4.5 MEQ/L (3.7-5.4); SAMPLE HEMOLYSIS CHECK 0; SAMPLE ICTERIC CHECK 0; SAMPLE LIPEMIA CHECK 0; SODIUM 143 MEQ/L (136-147); UREA NITROGEN (BUN) 24 mg/dL (9-23)
[2017-02-24 08:03] VITALS: BP 138/103
[2017-02-24 08:57] LABS: POINT-OF-CARE METER ID UU13113831
[2017-02-24] MEDS ORDERED: AMLODIPINE BESYL5 MG PO ×2 (09:02→10:04)
[2017-02-24] MEDS ORDERED: NABI650T PO (09:02)
[2017-02-24 12:33] LABS: POINT-OF-CARE METER ID UU13113831
== END 2017-02-24 13:25 | disposition home or self-care (01) ==
LOC: EME → EDBD 21:40 → 5WEST 02-22 03:09 → EDOF 02-22 03:09 → 5WEST 02-22 04:33
PROVIDERS: Emergency Medicine; Internal Medicine; Nurse Practitioner Adult Health; Physician Assistant Medical
DX: E87.2 Acidosis (principal); N17.9 Acute kidney failure, unspecified; E11.9 Type 2 diabetes mellitus without complications; Z91.19 Patient's noncompliance with other medical treatment and regimen; I13.0 Hypertensive heart and chronic kidney disease with heart failure and stage 1 through stage 4 chronic kidney disease, or unspecified chronic kidney disease; N18.3 Chronic kidney disease, stage 3 (moderate); I25.10 Atherosclerotic heart disease of native coronary artery without angina pectoris; Z95.5 Presence of coronary angioplasty implant and graft; E11.21 Type 2 diabetes mellitus with diabetic nephropathy; E11.22 Type 2 diabetes mellitus with diabetic chronic kidney disease; I25.5 Ischemic cardiomyopathy; Z79.4 Long term (current) use of insulin; F11.20 Opioid dependence, uncomplicated; G89.29 Other chronic pain; M54.2 Cervicalgia; I48.2 Chronic atrial fibrillation; Z79.01 Long term (current) use of anticoagulants; I48.92 Unspecified atrial flutter; E78.5 Hyperlipidemia, unspecified; I50.30 Unspecified diastolic (congestive) heart failure; I08.2 Rheumatic disorders of both aortic and tricuspid valves; I27.2 Other secondary pulmonary hypertension; I73.9 Peripheral vascular disease, unspecified; Z86.73 Personal history of transient ischemic attack (TIA), and cerebral infarction without residual deficits; F41.9 Anxiety disorder, unspecified; F32.9 Major depressive disorder, single episode, unspecified
CPT/HCPCS: 36600; 70450; 71010; 73560; 76770; 80048; 80053; 80076; 80306 90; 81003; 82330; 82436; 82550 91; 82575; 82803; 82948; 83036; 83735; 83930; 83935; 84100; 84133; 84300; 84484; 85025; 85610; 85730; 93005; 99281; 99285; G0378; J1644; J1815; J1885; J2270; J2405; J7030

== ENCOUNTER 2017-03-03 16:22 | Emergency (ER) | payer OTHER ==
[~2017-03-03] VITALS: Ht 177.8 cm; Wt 90.9 kg
[~2017-03-03 16:22] MED LIST changes: +NABI650T PO
[2017-03-03 17:00] LABS: HEMATOCRIT 32.2 % (38.0-50.0); MCH 25.1 PG (29.0-34.0); MCHC 32.9 G/DL (30.0-36.0); MCV 76.1 FL (86-99); MEAN PLAT.VOLUME 9.6 uM^3 (9.0-12.4); PLATELET COUNT 276 K/uL (156-360); RBC DIS.WIDTH-CV 14.4 % (11.8-14.6); RBC DIS.WIDTH-SD 39.6 % (39-53); RED BLOOD COUNT 4.23 M/uL (4.00-5.50); WHITE BLOOD COUNT 8.2 K/uL (4.1-10.2)
[2017-03-03 17:03] LABS: CHLORIDE 100 mEq/L (99-109); POTASSIUM 4.4 mEq/L (3.7-5.4); SODIUM 128 mEq/L (136-147)
[2017-03-03 17:05] LABS: GLUCOSE 206 mg/dL (70-99)
[2017-03-03 17:06] LABS: ANION GAP 13 MEQ/L (2-14)
[2017-03-03 17:09] LABS: GFR ESTIMATE (CALCULATED) 32 mL/min/
[2017-03-03 17:10] LABS: UREA NITROGEN (BUN) 26 mg/dL (9-23)
[2017-03-03 17:16] LABS: TROP-I INTERPRETATION NEGATIVE; TROPONIN-I 0.03 ng/mL (0.0-0.30)
[2017-03-03 19:25] LABS: TROP-I INTERPRETATION NEGATIVE; TROPONIN-I 0.04 ng/mL (0.0-0.30)
[2017-03-03 20:01] VITALS: BP 154/83
== END 2017-03-03 20:28 | disposition home or self-care (01) ==
LOC: EME 16:22
PROVIDERS: Emergency Medicine
DX: R07.9 Chest pain, unspecified (principal); M54.2 Cervicalgia; R42 Dizziness and giddiness; I25.2 Old myocardial infarction; Z95.5 Presence of coronary angioplasty implant and graft; F17.200 Nicotine dependence, unspecified, uncomplicated
CPT/HCPCS: 71020; 80048; 83880; 84484; 85027; 93005; 99281; 99285; J2270; J2405; J7030

== ENCOUNTER 2017-03-05 02:15 | Observation (INO) | payer OTHER ==
[~2017-03-05] VITALS: Ht 177.8 cm; Wt 82.5 kg
[2017-03-05 03:06] LABS: MCH 25.4 PG (29.0-34.0); MCHC 32.8 G/DL (30.0-36.0); MCV 77.5 FL (86-99); MEAN PLAT.VOLUME 8.9 uM^3 (9.0-12.4); PLATELET COUNT 206 K/uL (156-360); RBC DIS.WIDTH-CV 14.6 % (11.8-14.6); RBC DIS.WIDTH-SD 41.1 % (39-53); RED BLOOD COUNT 3.74 M/uL (4.00-5.50); WHITE BLOOD COUNT 7.8 K/uL (4.1-10.2)
[2017-03-05 03:17] LABS: CHLORIDE 104 mEq/L (99-109); SODIUM 132 mEq/L (136-147)
[2017-03-05 03:20] LABS: ANION GAP 10 MEQ/L (2-14)
[2017-03-05 03:23] LABS: GFR ESTIMATE (CALCULATED) 28 mL/min/; GLUCOSE 67 mg/dL (70-99)
[2017-03-05 03:24] LABS: UREA NITROGEN (BUN) 26 mg/dL (9-23)
[2017-03-05 03:27] LABS: TROP-I INTERPRETATION NEGATIVE; TROPONIN-I 0.04 ng/mL (0.0-0.30)
[2017-03-05 05:22] LABS: ADD MIUA? YES; BILIRUBIN NEGATIVE; BLOOD NEGATIVE; COLOR YELLOW ((YELLOW)); GLUCOSE (STRIP) NEGATIVE; KETONES NEGATIVE; LEUKOCYTES NEGATIVE; NITRITE NEGATIVE; PROTEIN (STRIP) 100; SPECIFIC GRAVITY 1.008 (1.000-1.030); UROBILINOGEN 0.2 MG/DL (0.2-1.0)
[2017-03-05 05:27] LABS: BACTERIA RARE /HPF; EPITHELIAL CELLS RARE /HPF; MUCUS NONE SEEN /LPF; RED BLOOD CELLS 0-5 /HPF (0-5); UCUL ADDED? NO; WHITE BLOOD CELLS 0-5 /HPF (0-5)
[2017-03-05 05:27] LABS: ADD MEDTOX COMMENT Y; AMPHETAMINE NEGATIVE (500 ng/mL); BARBITURATES NEGATIVE (200 ng/mL); BENZODIAZEPINES NEGATIVE (150 ng/mL); COCAINE NEGATIVE (150 ng/mL); INTERNAL CONTROLS VALID? YES; METHADONE NEGATIVE (200 ng/mL); METHAMPHETAMINE NEGATIVE (500 ng/mL); OPIATES (MORPHINE) PRESUMPTIVE POSITIVE (100 ng/mL); OXYCODONE NEGATIVE (100 ng/mL); PHENCYCLIDINE NEGATIVE (25 ng/mL); PROPOXYPHENE NEGATIVE (300 ng/mL); THC CANNABINOIDS NEGATIVE (50 ng/mL); TRICYCLIC ANTIDEPRESSANTS NEGATIVE (300 ng/mL)
[2017-03-05 06:22] VITALS: BP 128/63
[2017-03-05 07:14] LABS: CARBON DIOXIDE (BICARBONATE) 18.8 MEQ/L (20-31)
[2017-03-05 07:27] VITALS: BP 120/66
[2017-03-05 08:09] LABS: ANION GAP 11 MEQ/L (2-14); CHLORIDE 106 MEQ/L (99-109); GFR ESTIMATE (CALCULATED) 31 mL/min/; GLUCOSE 80 mg/dL (70-99); MAGNESIUM 1.6 mg/dl (1.3-2.7); SAMPLE HEMOLYSIS CHECK 0; SAMPLE ICTERIC CHECK 0; SAMPLE LIPEMIA CHECK 0; SODIUM 134 MEQ/L (136-147); UREA NITROGEN (BUN) 26 mg/dL (9-23)
[2017-03-05 11:53] VITALS: BP 133/61
[2017-03-05 12:39] LABS: POINT-OF-CARE METER ID UU13113700
[2017-03-05 16:18] VITALS: BP 156/83
[2017-03-05 16:57] LABS: POINT-OF-CARE METER ID UU13113831
[2017-03-05 21:53] LABS: POINT-OF-CARE METER ID UU13113831
[2017-03-05 22:24] VITALS: BP 130/81
[2017-03-06 04:39] VITALS: BP 138/75
[2017-03-06 04:42] LABS: POINT-OF-CARE METER ID UU14162513
[2017-03-06 06:58] LABS: EOSINOPHIL (%) 2.1 % (0-5); EOSINOPHIL COUNT 0.2 K/uL (0-0.3); HEMATOCRIT 30.5 % (38.0-50.0); IMMATURE GRANULOCYTE (%) 0.6 % (0.0-0.7); IMMATURE GRANULOCYTE COUNT 0.1 K/uL; INSTRUMENT ABS NEUTROPHIL CT 6.1 K/uL; LYMPHOCYTE COUNT 1.1 K/uL (1.0-2.8); MCH 25.2 PG (29.0-34.0); MCHC 32.5 G/DL (30.0-36.0); MCV 77.6 FL (86-99); MEAN PLAT.VOLUME 9.9 uM^3 (9.0-12.4); MONOCYTE (%) 10.8 % (3-12); MONOCYTE COUNT 0.9 K/uL (0-0.8); NEUTROPHIL (%) 72.5 % (45-76); NEUTROPHIL COUNT 6.1 K/uL (1.8-6.4); PLATELET COUNT 215 K/uL (156-360); RBC DIS.WIDTH-CV 14.9 % (11.8-14.6); RBC DIS.WIDTH-SD 42.5 % (39-53); RED BLOOD COUNT 3.93 M/uL (4.00-5.50); WHITE BLOOD COUNT 8.4 K/uL (4.1-10.2)
[2017-03-06 07:23] LABS: ANION GAP 9 MEQ/L (2-14); CHLORIDE 108 MEQ/L (99-109); POTASSIUM 4.1 MEQ/L (3.7-5.4); SAMPLE HEMOLYSIS CHECK 0; SAMPLE ICTERIC CHECK 0; SAMPLE LIPEMIA CHECK 0; SODIUM 139 MEQ/L (136-147); UREA NITROGEN (BUN) 24 mg/dL (9-23)
[2017-03-06 07:25] LABS: GFR ESTIMATE (CALCULATED) 41 mL/min/; GLUCOSE 125 mg/dL (70-99)
[2017-03-06 08:03] VITALS: BP 134/95
[2017-03-06] MEDS ORDERED: METOPROLOL SUCC50 MG PO (15:04)
== END 2017-03-06 16:09 | disposition home or self-care (01) ==
LOC: EME 02:15 → EDOF 05:11 → 5WEST 05:11 → EDOF 05:11 → 5WEST 06:03
PROVIDERS: Emergency Medicine; Hospitalist; Physician Assistant Medical
DX: N17.9 Acute kidney failure, unspecified (principal); I25.10 Atherosclerotic heart disease of native coronary artery without angina pectoris; I25.82 Chronic total occlusion of coronary artery; I25.2 Old myocardial infarction; I25.5 Ischemic cardiomyopathy; I13.0 Hypertensive heart and chronic kidney disease with heart failure and stage 1 through stage 4 chronic kidney disease, or unspecified chronic kidney disease; E78.5 Hyperlipidemia, unspecified; E11.22 Type 2 diabetes mellitus with diabetic chronic kidney disease; N18.3 Chronic kidney disease, stage 3 (moderate); Z79.4 Long term (current) use of insulin; I48.2 Chronic atrial fibrillation; I50.32 Chronic diastolic (congestive) heart failure; Z86.73 Personal history of transient ischemic attack (TIA), and cerebral infarction without residual deficits; I27.2 Other secondary pulmonary hypertension; Z87.891 Personal history of nicotine dependence; Z79.82 Long term (current) use of aspirin; Z79.02 Long term (current) use of antithrombotics/antiplatelets; E87.1 Hypo-osmolality and hyponatremia; E87.2 Acidosis; I08.3 Combined rheumatic disorders of mitral, aortic and tricuspid valves; F41.9 Anxiety disorder, unspecified; Z91.19 Patient's noncompliance with other medical treatment and regimen
CPT/HCPCS: 70450; 71010; 78452; 80048; 80048 91; 80306 90; 81003; 82803; 82948; 83605; 83735; 84484; 84999; 85025; 85027; 93005; 93017; 99281; 99285; A9500; G0378; G0480; J1815; J2785; J7030

== ENCOUNTER 2017-03-10 03:08 | Emergency (ER) | payer OTHER ==
[~2017-03-10] VITALS: Ht 177.8 cm; Wt 82.5 kg
[~2017-03-10 03:08] MED LIST changes: +METOPROLOL SUCC50 MG PO
[2017-03-10 04:20] VITALS: BP 110/72
== END 2017-03-10 04:22 | disposition home or self-care (01) ==
LOC: EME → EDBD 03:08 → EME 03:08
DX: S80.01XA Contusion of right knee, initial encounter (principal); S80.02XA Contusion of left knee, initial encounter; W01.0XXA Fall on same level from slipping, tripping and stumbling without subsequent striking against object, initial encounter; Y93.01 Activity, walking, marching and hiking; E11.9 Type 2 diabetes mellitus without complications; J44.9 Chronic obstructive pulmonary disease, unspecified; M79.7 Fibromyalgia; E78.5 Hyperlipidemia, unspecified; I10 Essential (primary) hypertension; I25.2 Old myocardial infarction; K21.9 Gastro-esophageal reflux disease without esophagitis; Z86.73 Personal history of transient ischemic attack (TIA), and cerebral infarction without residual deficits; F17.200 Nicotine dependence, unspecified, uncomplicated
CPT/HCPCS: 99281; 99283

== ENCOUNTER 2017-04-02 16:15 | Observation (INO) | payer OTHER ==
[~2017-04-02] VITALS: Ht 177.8 cm; Wt 80.0 kg
[2017-04-02 17:12] LABS: HEMATOCRIT 36.3 % (38.0-50.0); MCH 24.5 PG (29.0-34.0); MCHC 32.5 G/DL (30.0-36.0); MCV 75.3 FL (86-99); MEAN PLAT.VOLUME 9.7 uM^3 (9.0-12.4); PLATELET COUNT 267 K/uL (156-360); RBC DIS.WIDTH-CV 15.2 % (11.8-14.6); RBC DIS.WIDTH-SD 41.4 % (39-53); WHITE BLOOD COUNT 9.5 K/uL (4.1-10.2)
[2017-04-02 17:14] LABS: RED BLOOD COUNT 4.82 M/uL (4.00-5.50)
[2017-04-02 17:20] LABS: CHLORIDE 109 mEq/L (99-109); SODIUM 137 mEq/L (136-147)
[2017-04-02 17:23] LABS: GLUCOSE 130 mg/dL (70-99)
[2017-04-02 17:24] LABS: ANION GAP 12 MEQ/L (2-14); TOTAL BILIRUBIN 0.5 mg/dL (0.0-1.0)
[2017-04-02 17:25] LABS: SERUM ETHYL ALCOHOL < 10 mg/dL
[2017-04-02 17:26] LABS: ALKALINE PHOSPHATASE 84 IU/L (3-129); GFR ESTIMATE (CALCULATED) 41 mL/min/
[2017-04-02 17:27] LABS: UREA NITROGEN (BUN) 30 mg/dL (9-23)
[2017-04-02 17:30] LABS: LIPASE 205 U/L (1.0-51.0)
[2017-04-02 17:32] LABS: TROP-I INTERPRETATION NEGATIVE; TROPONIN-I 0.05 ng/mL (0.0-0.30)
[2017-04-02 21:45] LABS: ADD MIUA? YES; BILIRUBIN NEGATIVE; BLOOD NEGATIVE; COLOR YELLOW ((YELLOW)); GLUCOSE (STRIP) 150; KETONES NEGATIVE; LEUKOCYTES NEGATIVE; NITRITE NEGATIVE; PROTEIN (STRIP) >=500; SPECIFIC GRAVITY 1.009 (1.000-1.030); UROBILINOGEN 0.2 MG/DL (0.2-1.0)
[2017-04-02 21:58] LABS: BACTERIA RARE /HPF; EPITHELIAL CELLS NONE SEEN /HPF; MUCUS NONE SEEN /LPF; RED BLOOD CELLS 0-5 /HPF (0-5); WHITE BLOOD CELLS 0-5 /HPF (0-5)
[2017-04-02 22:06] LABS: AMPHETAMINE NEGATIVE (500 ng/mL); BARBITURATES NEGATIVE (200 ng/mL); BENZODIAZEPINES NEGATIVE (150 ng/mL); COCAINE NEGATIVE (150 ng/mL); INTERNAL CONTROLS VALID? YES; METHADONE NEGATIVE (200 ng/mL); METHAMPHETAMINE NEGATIVE (500 ng/mL); OPIATES (MORPHINE) NEGATIVE (100 ng/mL); OXYCODONE NEGATIVE (100 ng/mL); PHENCYCLIDINE NEGATIVE (25 ng/mL); PROPOXYPHENE NEGATIVE (300 ng/mL); THC CANNABINOIDS NEGATIVE (50 ng/mL); TRICYCLIC ANTIDEPRESSANTS NEGATIVE (300 ng/mL)
[2017-04-02 23:07] LABS: TROP-I INTERPRETATION NEGATIVE; TROPONIN-I 0.03 ng/mL (0.0-0.30)
[2017-04-02 23:08] VITALS: BP 130/88
[2017-04-02 23:16] LABS: IRON 49 MCG/DL (35-150); TRIGLYCERIDES 93 MG/DL (Normal: <150)
[2017-04-02 23:33] LABS: POINT-OF-CARE METER ID UU14188625
[2017-04-03] VITALS: BP 134/86
[2017-04-03 03:24] VITALS: BP 139/72
[2017-04-03 07:45] LABS: FERRITIN 12 NG/ML (22-322)
[2017-04-03 08:20] VITALS: BP 136/84
[2017-04-03 08:20] LABS: INTACT PARATHYROID HORMONE 74 pg/mL (10-69)
[2017-04-03 08:59] LABS: BASOPHIL COUNT 0.1 K/uL (0-0.1); EOSINOPHIL (%) 4.2 % (0-5); EOSINOPHIL COUNT 0.3 K/uL (0-0.3); HEMATOCRIT 33.7 % (38.0-50.0); IMMATURE GRANULOCYTE (%) 0.4 % (0.0-0.7); INSTRUMENT ABS NEUTROPHIL CT 4.9 K/uL; LYMPHOCYTE COUNT 1.1 K/uL (1.0-2.8); MCH 24.5 PG (29.0-34.0); MCHC 31.2 G/DL (30.0-36.0); MCV 78.6 FL (86-99); MEAN PLAT.VOLUME 10.4 uM^3 (9.0-12.4); NEUTROPHIL (%) 66.1 % (45-76); NEUTROPHIL COUNT 4.9 K/uL (1.8-6.4); PLATELET COUNT 224 K/uL (156-360); RBC DIS.WIDTH-CV 15.7 % (11.8-14.6); RBC DIS.WIDTH-SD 44.5 % (39-53); RED BLOOD COUNT 4.29 M/uL (4.00-5.50); WHITE BLOOD COUNT 7.4 K/uL (4.1-10.2)
[2017-04-03 09:23] LABS: ALKALINE PHOSPHATASE 75 IU/L (3-129); ANION GAP 8 MEQ/L (2-14); CHLORIDE 108 MEQ/L (99-109); GFR ESTIMATE (CALCULATED) 50 mL/min/; GLUCOSE 101 mg/dL (70-99); LIPASE 128 U/L (1.0-51.0); POTASSIUM 4.6 MEQ/L (3.7-5.4); SAMPLE HEMOLYSIS CHECK 0; SAMPLE ICTERIC CHECK 0; SAMPLE LIPEMIA CHECK 0; SODIUM 139 MEQ/L (136-147); TOTAL BILIRUBIN 0.6 MG/DL (0.0-1.0); UREA NITROGEN (BUN) 27 mg/dL (9-23)
[2017-04-03 09:26] LABS: TROP-I INTERPRETATION NEGATIVE; TROPONIN-I 0.04 ng/mL (0.0-0.30)
[2017-04-03 10:43] LABS: HPCA INDEX 9.26
[2017-04-03 11:50] VITALS: BP 135/90
[2017-04-03] MEDS ORDERED: THIAMINE HCL100 MG PO (15:05)
[2017-04-03] MEDS ORDERED: FOLIC ACID1 MG PO (15:05)
[2017-04-03] MEDS ORDERED: NOVOLIN,HU100 UNITS1 SC (15:06)
[2017-04-03 16:34] VITALS: BP 135/90
== END 2017-04-03 18:11 | disposition home or self-care (01) ==
LOC: EME 16:15 → EDOF 21:05 → 5SOUTH 21:05
PROVIDERS: Emergency Medicine; Internal Medicine
DX: K85.90 Acute pancreatitis without necrosis or infection, unspecified (principal); B18.2 Chronic viral hepatitis C; D50.9 Iron deficiency anemia, unspecified; R10.13 Epigastric pain; R07.9 Chest pain, unspecified; R55 Syncope and collapse; M25.511 Pain in right shoulder; N18.9 Chronic kidney disease, unspecified; I25.5 Ischemic cardiomyopathy; I25.10 Atherosclerotic heart disease of native coronary artery without angina pectoris; I25.82 Chronic total occlusion of coronary artery; I73.9 Peripheral vascular disease, unspecified; I50.32 Chronic diastolic (congestive) heart failure; I35.0 Nonrheumatic aortic (valve) stenosis; I27.2 Other secondary pulmonary hypertension; J44.9 Chronic obstructive pulmonary disease, unspecified; F32.9 Major depressive disorder, single episode, unspecified; F41.9 Anxiety disorder, unspecified; Z91.19 Patient's noncompliance with other medical treatment and regimen
CPT/HCPCS: 70450; 71010; 73000; 73030; 74176; 80053; 81003; 82306; 82607; 82728; 82787 90; 82948; 83540; 83605; 83690; 83970; 84466; 84478; 84484; 85025; 85027; 86140; 86803; 93005; 99281; 99285; C9113; G0103; G0378; G0480; J1815; J2270; J3010; J3411; J3475; J7030

== ENCOUNTER 2017-04-05 16:17 | Emergency (ER) | payer OTHER ==
[~2017-04-05] VITALS: Ht 177.8 cm; Wt 79.3 kg
[2017-04-05 16:17] VITALS: BP 120/86
[~2017-04-05 16:17] MED LIST changes: +NOVOLIN,HU100 UNITS1 SC
[2017-04-05 17:05] LABS: HEMATOCRIT 34.2 % (38.0-50.0); MCH 24.4 PG (29.0-34.0); MCHC 31.6 G/DL (30.0-36.0); MCV 77.2 FL (86-99); MEAN PLAT.VOLUME 9.7 uM^3 (9.0-12.4); PLATELET COUNT 230 K/uL (156-360); RBC DIS.WIDTH-CV 15.3 % (11.8-14.6); RBC DIS.WIDTH-SD 42.8 % (39-53); RED BLOOD COUNT 4.43 M/uL (4.00-5.50)
[2017-04-05 17:20] LABS: CHLORIDE 110 mEq/L (99-109); POTASSIUM 4.3 mEq/L (3.7-5.4)
[2017-04-05 17:21] LABS: SODIUM 139 mEq/L (136-147)
[2017-04-05 17:23] LABS: GLUCOSE 169 mg/dL (70-99)
[2017-04-05 17:24] LABS: ANION GAP 8 MEQ/L (2-14)
[2017-04-05 17:26] LABS: GFR ESTIMATE (CALCULATED) 43 mL/min/; SERUM ETHYL ALCOHOL < 10 mg/dL
[2017-04-05 17:27] LABS: UREA NITROGEN (BUN) 23 mg/dL (9-23)
== END 2017-04-05 18:30 | disposition home or self-care (01) ==
LOC: EME 16:17
PROVIDERS: Emergency Medicine
DX: I48.91 Unspecified atrial fibrillation (principal); I12.9 Hypertensive chronic kidney disease with stage 1 through stage 4 chronic kidney disease, or unspecified chronic kidney disease; N18.9 Chronic kidney disease, unspecified; D53.9 Nutritional anemia, unspecified; R55 Syncope and collapse; Z91.81 History of falling; I25.2 Old myocardial infarction; E11.9 Type 2 diabetes mellitus without complications; E78.5 Hyperlipidemia, unspecified; K21.9 Gastro-esophageal reflux disease without esophagitis; M79.7 Fibromyalgia; Z86.73 Personal history of transient ischemic attack (TIA), and cerebral infarction without residual deficits; Z86.74 Personal history of sudden cardiac arrest; F17.200 Nicotine dependence, unspecified, uncomplicated
CPT/HCPCS: 70450; 80048; 85027; 93005; 99281; 99284; G0480

== ENCOUNTER 2017-04-09 22:13 | Emergency (ER) | payer OTHER ==
[~2017-04-09] VITALS: Ht 177.8 cm; Wt 84.7 kg
[2017-04-09 22:35] LABS: HEMATOCRIT 29.5 % (38.0-50.0); MCHC 32.9 G/DL (30.0-36.0); MEAN PLAT.VOLUME 9.4 uM^3 (9.0-12.4); PLATELET COUNT 195 K/uL (156-360); RBC DIS.WIDTH-CV 15.4 % (11.8-14.6); RBC DIS.WIDTH-SD 42.9 % (39-53); RED BLOOD COUNT 3.88 M/uL (4.00-5.50)
[2017-04-09 22:48] LABS: CHLORIDE 106 mEq/L (99-109); POTASSIUM 4.2 mEq/L (3.7-5.4); SODIUM 133 mEq/L (136-147)
[2017-04-09 22:50] LABS: GLUCOSE 262 mg/dL (70-99)
[2017-04-09 22:51] LABS: ANION GAP 10 MEQ/L (2-14)
[2017-04-09 22:53] LABS: GFR ESTIMATE (CALCULATED) 34 mL/min/; SERUM ETHYL ALCOHOL < 10 mg/dL
[2017-04-09 22:54] LABS: UREA NITROGEN (BUN) 24 mg/dL (9-23)
[2017-04-10 00:07] LABS: ADD MIUA? YES; BILIRUBIN NEGATIVE; BLOOD NEGATIVE; COLOR YELLOW ((YELLOW)); GLUCOSE (STRIP) 150; KETONES NEGATIVE; LEUKOCYTES NEGATIVE; NITRITE NEGATIVE; PROTEIN (STRIP) >=500; SPECIFIC GRAVITY 1.012 (1.000-1.030); UROBILINOGEN 0.2 MG/DL (0.2-1.0)
[2017-04-10 00:14] LABS: AMPHETAMINE NEGATIVE (500 ng/mL); BARBITURATES NEGATIVE (200 ng/mL); BENZODIAZEPINES NEGATIVE (150 ng/mL); COCAINE NEGATIVE (150 ng/mL); INTERNAL CONTROLS VALID? YES; METHADONE NEGATIVE (200 ng/mL); METHAMPHETAMINE NEGATIVE (500 ng/mL); OPIATES (MORPHINE) NEGATIVE (100 ng/mL); OXYCODONE NEGATIVE (100 ng/mL); PHENCYCLIDINE NEGATIVE (25 ng/mL); PROPOXYPHENE NEGATIVE (300 ng/mL); THC CANNABINOIDS NEGATIVE (50 ng/mL); TRICYCLIC ANTIDEPRESSANTS NEGATIVE (300 ng/mL)
[2017-04-10 00:16] LABS: BACTERIA RARE /HPF; EPITHELIAL CELLS RARE /HPF; HYALINE CASTS 0-5 /LPF; MUCUS TRACE /LPF; RED BLOOD CELLS 0-5 /HPF (0-5); UCUL ADDED? NO; WHITE BLOOD CELLS 0-5 /HPF (0-5)
[2017-04-10 01:31] VITALS: BP 110/75
== END 2017-04-10 01:31 | disposition home or self-care (01) ==
LOC: EME 22:13
PROVIDERS: Emergency Medicine
DX: R51 Headache (principal); R10.9 Unspecified abdominal pain; I12.9 Hypertensive chronic kidney disease with stage 1 through stage 4 chronic kidney disease, or unspecified chronic kidney disease; E11.22 Type 2 diabetes mellitus with diabetic chronic kidney disease; N18.9 Chronic kidney disease, unspecified; D64.9 Anemia, unspecified; I69.398 Other sequelae of cerebral infarction; H54.41 Blindness, right eye, normal vision left eye; F17.200 Nicotine dependence, unspecified, uncomplicated
CPT/HCPCS: 80048; 81003; 85027; 99281; 99284; G0480

== ENCOUNTER 2017-04-13 20:03 | Emergency (ER) | payer OTHER ==
[~2017-04-13] VITALS: Ht 177.8 cm; Wt 81.4 kg
[2017-04-13 21:44] LABS: EOSINOPHIL (%) 3.1 % (0-5); EOSINOPHIL COUNT 0.2 K/uL (0-0.3); HEMATOCRIT 31.2 % (38.0-50.0); IMMATURE GRANULOCYTE (%) 0.4 % (0.0-0.7); INSTRUMENT ABS NEUTROPHIL CT 5.7 K/uL; LYMPHOCYTE COUNT 0.6 K/uL (1.0-2.8); MCH 24.7 PG (29.0-34.0); MCHC 32.7 G/DL (30.0-36.0); MCV 75.5 FL (86-99); MEAN PLAT.VOLUME 9.2 uM^3 (9.0-12.4); MONOCYTE (%) 10.8 % (3-12); MONOCYTE COUNT 0.8 K/uL (0-0.8); NEUTROPHIL (%) 77.5 % (45-76); NEUTROPHIL COUNT 5.7 K/uL (1.8-6.4); PLATELET COUNT 220 K/uL (156-360); RBC DIS.WIDTH-CV 15.2 % (11.8-14.6); RED BLOOD COUNT 4.13 M/uL (4.00-5.50); WHITE BLOOD COUNT 7.4 K/uL (4.1-10.2)
[2017-04-13 21:54] LABS: CHLORIDE 104 mEq/L (99-109); POTASSIUM 4.2 mEq/L (3.7-5.4); SODIUM 133 mEq/L (136-147)
[2017-04-13 21:57] LABS: GLUCOSE 195 mg/dL (70-99)
[2017-04-13 21:58] LABS: ANION GAP 9 MEQ/L (2-14)
[2017-04-13 21:59] LABS: TOTAL BILIRUBIN 0.4 mg/dL (0.0-1.0)
[2017-04-13 22:00] LABS: ALKALINE PHOSPHATASE 92 IU/L (3-129); GFR ESTIMATE (CALCULATED) 43 mL/min/
[2017-04-13 22:01] LABS: UREA NITROGEN (BUN) 17 mg/dL (9-23)
[2017-04-13 22:04] LABS: LIPASE 100 U/L (1.0-51.0)
[2017-04-13 22:05] LABS: TROP-I INTERPRETATION NEGATIVE; TROPONIN-I 0.05 ng/mL (0.0-0.30)
[2017-04-14 00:39] LABS: ADD MIUA? YES; BILIRUBIN NEGATIVE; BLOOD SMALL; COLOR STRAW ((YELLOW)); GLUCOSE (STRIP) NEGATIVE; KETONES NEGATIVE; LEUKOCYTES NEGATIVE; NITRITE NEGATIVE; PROTEIN (STRIP) >=500; SPECIFIC GRAVITY 1.004 (1.000-1.030); UROBILINOGEN 0.2 MG/DL (0.2-1.0)
[2017-04-14 00:42] LABS: BACTERIA NONE SEEN /HPF; EPITHELIAL CELLS NONE SEEN /HPF; MUCUS NONE SEEN /LPF; RED BLOOD CELLS 0-5 /HPF (0-5); UCUL ADDED? NO; WHITE BLOOD CELLS 0-5 /HPF (0-5)
[2017-04-14 01:56] VITALS: BP 126/93
[2017-04-14] MEDS ORDERED: LISINOPRIL5 MG PO (02:07)
== END 2017-04-14 02:21 | disposition home or self-care (01) ==
LOC: EME → EDBD 20:03 → EME 20:03
PROVIDERS: Emergency Medicine
DX: R10.9 Unspecified abdominal pain (principal); R51 Headache; E11.9 Type 2 diabetes mellitus without complications; J44.9 Chronic obstructive pulmonary disease, unspecified; M79.7 Fibromyalgia; E78.5 Hyperlipidemia, unspecified; I10 Essential (primary) hypertension; I25.2 Old myocardial infarction; K21.9 Gastro-esophageal reflux disease without esophagitis; Z86.73 Personal history of transient ischemic attack (TIA), and cerebral infarction without residual deficits; F17.200 Nicotine dependence, unspecified, uncomplicated
CPT/HCPCS: 70450; 71010; 74176; 80053; 81003; 83690; 84484; 85025; 93005; 99281; 99285; J0595; J1200; J2765; J7030

== ENCOUNTER 2017-04-29 07:29 | Emergency (ER) | payer OTHER ==
[~2017-04-29] VITALS: Ht 177.8 cm; Wt 178.0 kg
[2017-04-29 08:22] LABS: EOSINOPHIL (%) 13.1 % (0-5); EOSINOPHIL COUNT 0.9 K/uL (0-0.3); HEMATOCRIT 30.8 % (38.0-50.0); IMMATURE GRANULOCYTE (%) 0.6 % (0.0-0.7); INSTRUMENT ABS NEUTROPHIL CT 4.2 K/uL; MCH 24.1 PG (29.0-34.0); MCHC 31.5 G/DL (30.0-36.0); MCV 76.6 FL (86-99); MEAN PLAT.VOLUME 9.7 uM^3 (9.0-12.4); MONOCYTE (%) 13.7 % (3-12); NEUTROPHIL (%) 58.5 % (45-76); NEUTROPHIL COUNT 4.2 K/uL (1.8-6.4); RBC DIS.WIDTH-CV 15.3 % (11.8-14.6); RBC DIS.WIDTH-SD 42.5 % (39-53); RED BLOOD COUNT 4.02 M/uL (4.00-5.50); WHITE BLOOD COUNT 7.1 K/uL (4.1-10.2)
[2017-04-29 08:27] LABS: PLATELET COUNT 295 K/uL (156-360)
[2017-04-29 08:31] LABS: CHLORIDE 106 mEq/L (99-109); POTASSIUM 4.2 mEq/L (3.7-5.4); SODIUM 135 mEq/L (136-147)
[2017-04-29 08:32] LABS: GLUCOSE 133 mg/dL (70-99)
[2017-04-29 08:34] LABS: ANION GAP 11 MEQ/L (2-14)
[2017-04-29 08:36] LABS: GFR ESTIMATE (CALCULATED) 36 mL/min/
[2017-04-29 08:37] LABS: UREA NITROGEN (BUN) 27 mg/dL (9-23)
[2017-04-29 08:42] LABS: TROP-I INTERPRETATION NEGATIVE; TROPONIN-I 0.05 ng/mL (0.0-0.30)
[2017-04-29 12:01] VITALS: BP 114/88
== END 2017-04-29 12:01 | disposition home or self-care (01) ==
LOC: EME 07:29
PROVIDERS: Emergency Medicine
DX: I48.91 Unspecified atrial fibrillation (principal); Z86.73 Personal history of transient ischemic attack (TIA), and cerebral infarction without residual deficits; I25.2 Old myocardial infarction; M79.7 Fibromyalgia; K21.9 Gastro-esophageal reflux disease without esophagitis; J44.9 Chronic obstructive pulmonary disease, unspecified; I10 Essential (primary) hypertension; F32.9 Major depressive disorder, single episode, unspecified; E78.5 Hyperlipidemia, unspecified; E11.9 Type 2 diabetes mellitus without complications; F17.200 Nicotine dependence, unspecified, uncomplicated; I25.10 Atherosclerotic heart disease of native coronary artery without angina pectoris; Z91.14 Patient's other noncompliance with medication regimen; R51 Headache
CPT/HCPCS: 80048; 84484; 85025; 93005; 99281; 99284

== ENCOUNTER → 2017-05-02 | Outpatient (CLI) | payer MEDICARE, OTHER | END | disposition home or self-care (01) | LOC: CDC 12:07 | DX: I48.91 Unspecified atrial fibrillation (principal); R94.31 Abnormal electrocardiogram [ECG] [EKG] | CPT/HCPCS: 93000 ==

== ENCOUNTER 2017-05-06 14:06 | Emergency (ER) | payer OTHER ==
[~2017-05-06] VITALS: Ht 175.3 cm; Wt 79.0 kg
[2017-05-06 15:16] LABS: HEMATOCRIT 32.1 % (38.0-50.0); MCH 24.3 PG (29.0-34.0); MCHC 31.8 G/DL (30.0-36.0); MCV 76.6 FL (86-99); MEAN PLAT.VOLUME 9.4 uM^3 (9.0-12.4); PLATELET COUNT 296 K/uL (156-360); RBC DIS.WIDTH-CV 15.6 % (11.8-14.6); RBC DIS.WIDTH-SD 42.8 % (39-53); RED BLOOD COUNT 4.19 M/uL (4.00-5.50); WHITE BLOOD COUNT 7.8 K/uL (4.1-10.2)
[2017-05-06 15:25] LABS: CHLORIDE 106 mEq/L (99-109); POTASSIUM 5.2 mEq/L (3.7-5.4); SODIUM 133 mEq/L (136-147)
[2017-05-06 15:27] LABS: GLUCOSE 98 mg/dL (70-99)
[2017-05-06 15:28] LABS: ANION GAP 9 MEQ/L (2-14)
[2017-05-06 15:31] LABS: GFR ESTIMATE (CALCULATED) 41 mL/min/
[2017-05-06 15:32] LABS: UREA NITROGEN (BUN) 25 mg/dL (9-23)
[2017-05-06 15:38] LABS: TROP-I INTERPRETATION NEGATIVE; TROPONIN-I 0.04 ng/mL (0.0-0.30)
[2017-05-06 17:49] LABS: TROP-I INTERPRETATION NEGATIVE; TROPONIN-I 0.04 ng/mL (0.0-0.30)
[2017-05-06 18:41] VITALS: BP 121/58
== END 2017-05-06 19:19 | disposition home or self-care (01) ==
LOC: EME 14:06
PROVIDERS: Emergency Medicine
DX: R42 Dizziness and giddiness (principal); R07.9 Chest pain, unspecified; G89.29 Other chronic pain; E11.9 Type 2 diabetes mellitus without complications; J44.9 Chronic obstructive pulmonary disease, unspecified; M79.7 Fibromyalgia; E78.5 Hyperlipidemia, unspecified; I10 Essential (primary) hypertension; I25.2 Old myocardial infarction; K21.9 Gastro-esophageal reflux disease without esophagitis; Z86.73 Personal history of transient ischemic attack (TIA), and cerebral infarction without residual deficits; F17.200 Nicotine dependence, unspecified, uncomplicated
CPT/HCPCS: 71020; 80048; 84484; 85027; 93005; 99281; 99285; J7040

== ENCOUNTER 2017-05-13 14:51 | Emergency (ER) | payer OTHER ==
[~2017-05-13] VITALS: Ht 177.8 cm; Wt 81.4 kg
[2017-05-13 15:19] LABS: POINT-OF-CARE METER ID UU14100415
[2017-05-13 15:58] LABS: MCHC 31.3 G/DL (30.0-36.0); MCV 76.7 FL (86-99); MEAN PLAT.VOLUME 9.5 uM^3 (9.0-12.4); PLATELET COUNT 240 K/uL (156-360); RBC DIS.WIDTH-CV 15.5 % (11.8-14.6); RBC DIS.WIDTH-SD 43.1 % (39-53); RED BLOOD COUNT 4.04 M/uL (4.00-5.50); WHITE BLOOD COUNT 7.1 K/uL (4.1-10.2)
[2017-05-13 16:07] LABS: CHLORIDE 109 mEq/L (99-109); POTASSIUM 5.2 mEq/L (3.7-5.4); SODIUM 138 mEq/L (136-147)
[2017-05-13 16:08] LABS: GLUCOSE 203 mg/dL (70-99)
[2017-05-13 16:10] LABS: ANION GAP 9 MEQ/L (2-14)
[2017-05-13 16:12] LABS: GFR ESTIMATE (CALCULATED) 38 mL/min/
[2017-05-13 16:13] LABS: UREA NITROGEN (BUN) 23 mg/dL (9-23)
[2017-05-13 16:18] LABS: TROP-I INTERPRETATION NEGATIVE; TROPONIN-I 0.03 ng/mL (0.0-0.30)
[2017-05-13 17:20] VITALS: BP 143/86
== END 2017-05-13 17:24 | disposition home or self-care (01) ==
LOC: EME 14:51
PROVIDERS: Emergency Medicine
DX: E11.65 Type 2 diabetes mellitus with hyperglycemia (principal); E86.0 Dehydration; I25.2 Old myocardial infarction; Z79.4 Long term (current) use of insulin; F17.200 Nicotine dependence, unspecified, uncomplicated; Z86.73 Personal history of transient ischemic attack (TIA), and cerebral infarction without residual deficits; Z95.5 Presence of coronary angioplasty implant and graft; Z88.8 Allergy status to other drugs, medicaments and biological substances
CPT/HCPCS: 80048; 82948; 84484; 85027; 93005; 99281; 99285; J7030

== ENCOUNTER 2017-06-29 19:20 | Inpatient (IN) | payer OTHER ==
[~2017-06-29] VITALS: Ht 177.8 cm; Wt 82.5 kg
[2017-06-29 19:44] LABS: POINT-OF-CARE METER ID UU13113778
[2017-06-29 20:38] LABS: CHLORIDE 111 mEq/L (99-109); HEMATOCRIT 30.9 % (38.0-50.0); MCH 24.2 PG (29.0-34.0); MCHC 32.7 G/DL (30.0-36.0); MCV 73.9 FL (86-99); MEAN PLAT.VOLUME 9.2 uM^3 (9.0-12.4); PLATELET COUNT 287 K/uL (156-360); POTASSIUM 4.6 mEq/L (3.7-5.4); RBC DIS.WIDTH-CV 16.5 % (11.8-14.6); RBC DIS.WIDTH-SD 44.4 % (39-53); RED BLOOD COUNT 4.18 M/uL (4.00-5.50); SODIUM 133 mEq/L (136-147)
[2017-06-29 20:39] LABS: GLUCOSE 165 mg/dL (70-99)
[2017-06-29 20:41] LABS: ANION GAP 9 MEQ/L (2-14)
[2017-06-29 20:43] LABS: GFR ESTIMATE (CALCULATED) 21 mL/min/
[2017-06-29 20:44] LABS: UREA NITROGEN (BUN) 49 mg/dL (9-23)
[2017-06-29 20:51] LABS: TROP-I INTERPRETATION NEGATIVE; TROPONIN-I 0.03 ng/mL (0.0-0.30)
[2017-06-29 21:18] LABS: CARBON DIOXIDE (BICARBONATE) 16.8 MEQ/L (20-31)
[2017-06-30] MEDS ORDERED: TOPROL XL50 MG PO (00:06)
[2017-06-30] MEDS ORDERED: PRINIVIL5 MG PO (00:07)
[2017-06-30] MEDS ORDERED: ASPIR 8181 M1 PO (00:08)
[2017-06-30] MEDS ORDERED: FOLIC ACID1 MG PO (00:09)
[2017-06-30] MEDS ORDERED: LEVEMIR100 UNIT/2 SC (00:09)
[2017-06-30] MEDS ORDERED: AMLODIPINE BESYL5 MG PO (00:10)
[2017-06-30] MEDS ORDERED: IMDUR30 MG PO (00:10)
[2017-06-30] MEDS ORDERED: CILOSTAZOL100 MG PO (00:10)
[2017-06-30 01:34] VITALS: BP 135/61
[2017-06-30 03:01] LABS: HEMATOCRIT 29.9 % (38.0-50.0); MCH 24.2 PG (29.0-34.0); MCHC 32.1 G/DL (30.0-36.0); MCV 75.3 FL (86-99); PLATELET COUNT 230 K/uL (156-360); RBC DIS.WIDTH-CV 16.4 % (11.8-14.6); RED BLOOD COUNT 3.97 M/uL (4.00-5.50); WHITE BLOOD COUNT 6.4 K/uL (4.1-10.2)
[2017-06-30 03:23] LABS: TROP-I INTERPRETATION NEGATIVE; TROPONIN-I 0.03 ng/mL (0.0-0.30)
[2017-06-30 03:28] LABS: CHLORIDE 113 mEq/L (99-109); POTASSIUM 4.6 mEq/L (3.7-5.4); SODIUM 136 mEq/L (136-147)
[2017-06-30 03:30] LABS: GLUCOSE 133 mg/dL (70-99)
[2017-06-30 03:32] LABS: ANION GAP 8 MEQ/L (2-14)
[2017-06-30 03:34] LABS: GFR ESTIMATE (CALCULATED) 24 mL/min/
[2017-06-30 03:35] LABS: UREA NITROGEN (BUN) 45 mg/dL (9-23)
[2017-06-30 04:33] VITALS: BP 12/58
[2017-06-30 06:02] LABS: POINT-OF-CARE METER ID UU13113831
[2017-06-30 08:18] VITALS: BP 126/65
[2017-06-30 08:27] LABS: Estimated Average Glucose 169 mg/dL (70-123); HEMOGLOBIN A1c (GLYCOHEMOGLOB) 7.5 % HGB (Below 5.7)
[2017-06-30 10:19] LABS: TROP-I INTERPRETATION NEGATIVE; TROPONIN-I 0.02 ng/mL (0.0-0.30)
[2017-06-30 11:48] VITALS: BP 117/57
[2017-06-30 12:17] LABS: POINT-OF-CARE METER ID UU14162513
[2017-06-30 12:48] LABS: CHLORIDE 116 mEq/L (99-109); POTASSIUM 4.6 mEq/L (3.7-5.4); SODIUM 136 mEq/L (136-147)
[2017-06-30 12:50] LABS: GLUCOSE 165 mg/dL (70-99)
[2017-06-30 12:51] LABS: ANION GAP 8 MEQ/L (2-14)
[2017-06-30 12:54] LABS: GFR ESTIMATE (CALCULATED) 28 mL/min/
[2017-06-30 12:55] LABS: UREA NITROGEN (BUN) 42 mg/dL (9-23)
[2017-06-30 14:44] VITALS: BP 111/61
[2017-06-30 16:37] LABS: POINT-OF-CARE METER ID UU13113725
[2017-06-30 17:28] LABS: ANION GAP 7 MEQ/L (2-14); CHLORIDE 114 MEQ/L (99-109); GFR ESTIMATE (CALCULATED) 34 mL/min/; POTASSIUM 4.8 MEQ/L (3.7-5.4); SAMPLE HEMOLYSIS CHECK 0; SAMPLE ICTERIC CHECK 0; SAMPLE LIPEMIA CHECK 0; SODIUM 138 MEQ/L (136-147); UREA NITROGEN (BUN) 42 mg/dL (9-23)
[2017-06-30 17:51] LABS: GLUCOSE 118 mg/dL (70-99)
[2017-06-30 19:06] LABS: IRON 68 MCG/DL (35-150)
[2017-06-30 19:57] VITALS: BP 107/68
[2017-07-01] VITALS (7 sets, daily range): BP systolic 108–155; BP diastolic 72–92
[2017-07-01 00:43] LABS: ADD MIUA? YES; BILIRUBIN NEGATIVE; BLOOD SMALL; COLOR STRAW ((YELLOW)); GLUCOSE (STRIP) NEGATIVE; KETONES NEGATIVE; LEUKOCYTES NEGATIVE; NITRITE NEGATIVE; PROTEIN (STRIP) 100; SPECIFIC GRAVITY 1.008 (1.000-1.030); UROBILINOGEN 0.2 MG/DL (0.2-1.0)
[2017-07-01 00:45] LABS: BACTERIA NONE SEEN /HPF; EPITHELIAL CELLS NONE SEEN /HPF; MUCUS NONE SEEN /LPF; RED BLOOD CELLS 0-5 /HPF (0-5); UCUL ADDED? NO; WHITE BLOOD CELLS NONE SEEN /HPF (0-5)
[2017-07-01 06:55] LABS: EOSINOPHIL (%) 4.2 % (0-5); EOSINOPHIL COUNT 0.3 K/uL (0-0.3); HEMATOCRIT 28.9 % (38.0-50.0); IMMATURE GRANULOCYTE (%) 0.3 % (0.0-0.7); INSTRUMENT ABS NEUTROPHIL CT 4.6 K/uL; LYMPHOCYTE COUNT 0.9 K/uL (1.0-2.8); MCH 24.4 PG (29.0-34.0); MCHC 31.8 G/DL (30.0-36.0); MCV 76.7 FL (86-99); MEAN PLAT.VOLUME 9.4 uM^3 (9.0-12.4); MONOCYTE (%) 11.6 % (3-12); MONOCYTE COUNT 0.8 K/uL (0-0.8); NEUTROPHIL (%) 69.8 % (45-76); NEUTROPHIL COUNT 4.6 K/uL (1.8-6.4); PLATELET COUNT 210 K/uL (156-360); RBC DIS.WIDTH-SD 47.3 % (39-53); RED BLOOD COUNT 3.77 M/uL (4.00-5.50); WHITE BLOOD COUNT 6.6 K/uL (4.1-10.2)
[2017-07-01 08:04] LABS: ANION GAP 6 MEQ/L (2-14); CHLORIDE 116 MEQ/L (99-109); GFR ESTIMATE (CALCULATED) 38 mL/min/; SAMPLE HEMOLYSIS CHECK 0; SAMPLE ICTERIC CHECK 0; SAMPLE LIPEMIA CHECK 0; SODIUM 137 MEQ/L (136-147); UREA NITROGEN (BUN) 35 mg/dL (9-23)
[2017-07-01 08:05] LABS: GLUCOSE 68 mg/dL (70-99)
[2017-07-01 11:32] LABS: POINT-OF-CARE METER ID UU13113725
[2017-07-01 16:30] LABS: POINT-OF-CARE METER ID UU13113725
[2017-07-01 21:12] LABS: POINT-OF-CARE METER ID UU13113725
[2017-07-02 02:18] LABS: C DIFF TOXIN NEGATIVE (NEGATIVE)
[2017-07-02 02:30] LABS: PROBE CHECK PASS; SPECIMEN PROCESSING CONTROL PASS
[2017-07-02 05:36] LABS: POINT-OF-CARE METER ID UU13113725
[2017-07-02 07:00] LABS: ANION GAP 7 MEQ/L (2-14); CHLORIDE 112 MEQ/L (99-109); GFR ESTIMATE (CALCULATED) 50 mL/min/; POTASSIUM 4.9 MEQ/L (3.7-5.4); SAMPLE HEMOLYSIS CHECK 0; SAMPLE ICTERIC CHECK 0; SAMPLE LIPEMIA CHECK 0; SODIUM 138 MEQ/L (136-147); UREA NITROGEN (BUN) 25 mg/dL (9-23)
[2017-07-02 07:08] LABS: GLUCOSE 124 mg/dL (70-99)
[2017-07-02 07:23] VITALS: BP 193/89
[2017-07-02 11:45] LABS: POINT-OF-CARE METER ID UU13113725
[2017-07-02 11:58] VITALS: BP 132/83
[2017-07-02] MEDS ORDERED: FLORASTOR250 MG PO (13:29)
[2017-07-02] MEDS ORDERED: METOPROLOL SUCC50 MG PO (13:29)
[2017-07-02] MEDS ORDERED: NABI650T PO (13:29)
[2017-07-02 16:38] VITALS: BP 131/62
[2017-07-02 16:39] LABS: POINT-OF-CARE METER ID UU13113725
[2017-07-02 20:15] VITALS: BP 167/83
[2017-07-02 21:41] LABS: POINT-OF-CARE METER ID UU13113725
[2017-07-03 00:20] VITALS: BP 111/58
[2017-07-03 07:01] LABS: POINT-OF-CARE METER ID UU13113725
[2017-07-03 07:58] LABS: ANION GAP 7 MEQ/L (2-14); CHLORIDE 109 MEQ/L (99-109); GFR ESTIMATE (CALCULATED) 46 mL/min/; GLUCOSE 99 mg/dL (70-99); POTASSIUM 4.4 MEQ/L (3.7-5.4); SAMPLE HEMOLYSIS CHECK 0; SAMPLE ICTERIC CHECK 0; SAMPLE LIPEMIA CHECK 0; SODIUM 138 MEQ/L (136-147); UREA NITROGEN (BUN) 21 mg/dL (9-23)
[2017-07-03 08:22] VITALS: BP 117/71
[2017-07-03 11:33] LABS: POINT-OF-CARE METER ID UU13113725
[2017-07-03] MEDS ORDERED: PERCOCET 5/31 TABLET PO (12:18)
== END 2017-07-03 15:20 | disposition home or self-care (01) | DRG 682 ==
LOC: RME 19:20 → EME 19:20 → 5WEST 06-30 00:27 → EDOF 06-30 00:27 → ENRESERV 06-30 00:29 → 5WEST 06-30 01:17 → 5EAST 06-30 10:26 → ENRESERV 06-30 10:37 → 5WEST 06-30 10:38 → ENRESERV 06-30 13:48 → 5EAST 06-30 14:39 → ENPENDDIS 07-03 → 5EAST 07-03 15:20 → EDPENDDISTM 07-03 15:30
PROVIDERS: Hospitalist; Internal Medicine; Nurse Practitioner Adult Health; Physician Assistant Medical
DX: N17.9 Acute kidney failure, unspecified (principal); K85.90 Acute pancreatitis without necrosis or infection, unspecified; E87.2 Acidosis; F32.9 Major depressive disorder, single episode, unspecified; E86.0 Dehydration; F17.200 Nicotine dependence, unspecified, uncomplicated; R07.9 Chest pain, unspecified; I48.91 Unspecified atrial fibrillation; I25.10 Atherosclerotic heart disease of native coronary artery without angina pectoris; E11.21 Type 2 diabetes mellitus with diabetic nephropathy; I50.32 Chronic diastolic (congestive) heart failure; N18.4 Chronic kidney disease, stage 4 (severe); I12.9 Hypertensive chronic kidney disease with stage 1 through stage 4 chronic kidney disease, or unspecified chronic kidney disease; J44.9 Chronic obstructive pulmonary disease, unspecified; E11.22 Type 2 diabetes mellitus with diabetic chronic kidney disease; K21.9 Gastro-esophageal reflux disease without esophagitis; I27.2 Other secondary pulmonary hypertension; D50.9 Iron deficiency anemia, unspecified; E11.649 Type 2 diabetes mellitus with hypoglycemia without coma; E78.5 Hyperlipidemia, unspecified; I35.0 Nonrheumatic aortic (valve) stenosis; I73.9 Peripheral vascular disease, unspecified; K52.9 Noninfective gastroenteritis and colitis, unspecified; F41.9 Anxiety disorder, unspecified; K80.20 Calculus of gallbladder without cholecystitis without obstruction; B19.20 Unspecified viral hepatitis C without hepatic coma; Z86.74 Personal history of sudden cardiac arrest; I65.29 Occlusion and stenosis of unspecified carotid artery; E87.5 Hyperkalemia; N20.0 Calculus of kidney; I25.5 Ischemic cardiomyopathy; M79.7 Fibromyalgia; H54.41 Blindness, right eye, normal vision left eye; K56.7 Ileus, unspecified; I25.2 Old myocardial infarction; Z79.899 Other long term (current) drug therapy; Z79.01 Long term (current) use of anticoagulants; Z79.4 Long term (current) use of insulin; Z79.82 Long term (current) use of aspirin; Z79.84 Long term (current) use of oral hypoglycemic drugs; Z86.73 Personal history of transient ischemic attack (TIA), and cerebral infarction without residual deficits; Z91.14 Patient's other noncompliance with medication regimen; Z91.19 Patient's noncompliance with other medical treatment and regimen; Z95.1 Presence of aortocoronary bypass graft
CPT/HCPCS: 71020; 74000; 74176; 80048; 80048 91; 80069; 81003; 82010; 82330; 82803; 82948; 83036; 83540; 83605; 84466; 84484; 85025; 85027; 87493; 93005; 99202; 99281; 99285; G0480; J0881; J1815; J1885; J2270; J2405; J7030; J7120

== ENCOUNTER 2017-07-10 15:42 | Observation (INO) | payer OTHER ==
[~2017-07-10] VITALS: Ht 177.8 cm; Wt 77.1 kg
[~2017-07-10 15:42] MED LIST changes: +CILOSTAZOL100 MG PO; +TOPROL XL50 MG PO
[2017-07-10 16:37] LABS: HEMATOCRIT 31.9 % (38.0-50.0); MCH 24.1 PG (29.0-34.0); MCHC 32.3 G/DL (30.0-36.0); MCV 74.7 FL (86-99); PLATELET COUNT 258 K/uL (156-360); RBC DIS.WIDTH-CV 16.6 % (11.8-14.6); RBC DIS.WIDTH-SD 44.7 % (39-53); RED BLOOD COUNT 4.27 M/uL (4.00-5.50); WHITE BLOOD COUNT 5.1 K/uL (4.1-10.2)
[2017-07-10 16:39] LABS: CHLORIDE 106 mEq/L (99-109); POTASSIUM 4.1 mEq/L (3.7-5.4); SODIUM 138 mEq/L (136-147)
[2017-07-10 16:40] LABS: MAGNESIUM 1.7 mg/dL (1.3-2.7)
[2017-07-10 16:42] LABS: GLUCOSE 121 mg/dL (70-99)
[2017-07-10 16:43] LABS: ANION GAP 12 MEQ/L (2-14)
[2017-07-10 16:44] LABS: TOTAL BILIRUBIN 0.5 mg/dL (0.0-1.0)
[2017-07-10 16:45] LABS: ALKALINE PHOSPHATASE 84 IU/L (3-129)
[2017-07-10 16:46] LABS: GFR ESTIMATE (CALCULATED) 36 mL/min/
[2017-07-10 16:47] LABS: UREA NITROGEN (BUN) 24 mg/dL (9-23)
[2017-07-10 16:49] LABS: CREATINE KINASE 79 IU/L (1-294); TOTAL CK 79 IU/L (1-294)
[2017-07-10 16:50] LABS: TROP-I INTERPRETATION NEGATIVE; TROPONIN-I 0.04 ng/mL (0.0-0.30)
[2017-07-10 17:33] LABS: CK-MB 5.2 ng/mL (0.0-4.9)
[2017-07-11 00:04] VITALS: BP 121/68
[2017-07-11 01:47] LABS: TROP-I INTERPRETATION NEGATIVE; TROPONIN-I 0.02 ng/mL (0.0-0.30)
[2017-07-11 05:31] LABS: HEMATOCRIT 28.9 % (38.0-50.0); MCH 24.2 PG (29.0-34.0); MCHC 31.5 G/DL (30.0-36.0); MCV 76.9 FL (86-99); MEAN PLAT.VOLUME 9.1 uM^3 (9.0-12.4); PLATELET COUNT 188 K/uL (156-360); RBC DIS.WIDTH-CV 16.8 % (11.8-14.6); RBC DIS.WIDTH-SD 46.9 % (39-53); RED BLOOD COUNT 3.76 M/uL (4.00-5.50)
[2017-07-11 05:48] LABS: TROP-I INTERPRETATION NEGATIVE; TROPONIN-I 0.03 ng/mL (0.0-0.30)
[2017-07-11 06:23] LABS: ALKALINE PHOSPHATASE 68 IU/L (3-129); ANION GAP 7 MEQ/L (2-14); CHLORIDE 110 MEQ/L (99-109); GFR ESTIMATE (CALCULATED) 43 mL/min/; GLUCOSE 136 mg/dL (70-99); POTASSIUM 4.5 MEQ/L (3.7-5.4); SAMPLE HEMOLYSIS CHECK 0; SAMPLE ICTERIC CHECK 0; SAMPLE LIPEMIA CHECK 0; SODIUM 140 MEQ/L (136-147); TOTAL BILIRUBIN 0.3 MG/DL (0.0-1.0); UREA NITROGEN (BUN) 21 mg/dL (9-23)
[2017-07-11 09:18] LABS: POINT-OF-CARE METER ID UU13113700
[2017-07-11 09:27] VITALS: BP 128/79
[2017-07-11 11:51] VITALS: BP 135/88
[2017-07-11 12:47] LABS: POINT-OF-CARE METER ID UU14162513
== END 2017-07-11 13:39 | disposition home or self-care (01) ==
LOC: EME 15:42 → 5WEST 23:08 → EDOF 23:08 → ENRESERV 23:10 → 5WEST 23:43 → ENPENDDIS 07-11 → 5WEST 07-11 13:39
PROVIDERS: Emergency Medicine; Internal Medicine
DX: R55 Syncope and collapse (principal); R07.9 Chest pain, unspecified; I25.10 Atherosclerotic heart disease of native coronary artery without angina pectoris; I25.2 Old myocardial infarction; I25.82 Chronic total occlusion of coronary artery; I13.0 Hypertensive heart and chronic kidney disease with heart failure and stage 1 through stage 4 chronic kidney disease, or unspecified chronic kidney disease; N18.2 Chronic kidney disease, stage 2 (mild); I50.32 Chronic diastolic (congestive) heart failure; E11.22 Type 2 diabetes mellitus with diabetic chronic kidney disease; I73.9 Peripheral vascular disease, unspecified; I25.5 Ischemic cardiomyopathy; Z86.73 Personal history of transient ischemic attack (TIA), and cerebral infarction without residual deficits; I65.23 Occlusion and stenosis of bilateral carotid arteries; I35.0 Nonrheumatic aortic (valve) stenosis; F32.9 Major depressive disorder, single episode, unspecified; F41.9 Anxiety disorder, unspecified; D53.9 Nutritional anemia, unspecified; I50.9 Heart failure, unspecified; J44.9 Chronic obstructive pulmonary disease, unspecified; I27.2 Other secondary pulmonary hypertension; Z86.19 Personal history of other infectious and parasitic diseases; F17.200 Nicotine dependence, unspecified, uncomplicated; Z88.8 Allergy status to other drugs, medicaments and biological substances; Z88.1 Allergy status to other antibiotic agents; Z79.82 Long term (current) use of aspirin; Z79.891 Long term (current) use of opiate analgesic; Z79.4 Long term (current) use of insulin; Z74.8 Other problems related to care provider dependency; Z73.89 Other problems related to life management difficulty
CPT/HCPCS: 70450; 71010; 80053; 82550; 82553; 82948; 83735; 84484; 85027; 93005; 99281; 99285; G0378; J2765; J7030

== ENCOUNTER 2017-07-12 19:13 | Emergency (ER) | payer OTHER ==
[~2017-07-12] VITALS: Ht 177.8 cm; Wt 76.7 kg
[2017-07-12 20:38] LABS: CARBON DIOXIDE (BICARBONATE) 23.2 MEQ/L (20-31)
[2017-07-12 20:44] LABS: INTER. NORMALIZED RATIO 1.3; PROTHROMBIN TIME 14.9 SEC (10.2-12.9)
[2017-07-12 20:45] LABS: CHLORIDE 110 mEq/L (99-109); POTASSIUM 4.1 mEq/L (3.7-5.4); SODIUM 142 mEq/L (136-147)
[2017-07-12 20:46] LABS: GLUCOSE 127 mg/dL (70-99)
[2017-07-12 20:47] LABS: PTT 52.3 SEC (25-37)
[2017-07-12 20:48] LABS: ANION GAP 13 MEQ/L (2-14)
[2017-07-12 20:50] LABS: GFR ESTIMATE (CALCULATED) 36 mL/min/
[2017-07-12 20:51] LABS: UREA NITROGEN (BUN) 18 mg/dL (9-23)
[2017-07-12 20:56] LABS: HEMATOCRIT 33.5 % (38.0-50.0); MCH 23.5 PG (29.0-34.0); MCHC 31.6 G/DL (30.0-36.0); MCV 74.3 FL (86-99); MEAN PLAT.VOLUME 9.1 uM^3 (9.0-12.4); PLATELET COUNT 265 K/uL (156-360); RBC DIS.WIDTH-CV 16.6 % (11.8-14.6); RBC DIS.WIDTH-SD 44.5 % (39-53); RED BLOOD COUNT 4.51 M/uL (4.00-5.50); TROP-I INTERPRETATION NEGATIVE; TROPONIN-I 0.03 ng/mL (0.0-0.30); WHITE BLOOD COUNT 7.3 K/uL (4.1-10.2)
[2017-07-12 21:41] VITALS: BP 104/82
== END 2017-07-12 22:43 | disposition home or self-care (01) ==
LOC: EME → EDBD 19:13 → EME 22:43
PROVIDERS: Emergency Medicine
DX: R55 Syncope and collapse (principal); E86.0 Dehydration; J44.9 Chronic obstructive pulmonary disease, unspecified; I12.0 Hypertensive chronic kidney disease with stage 5 chronic kidney disease or end stage renal disease; N18.6 End stage renal disease; E11.9 Type 2 diabetes mellitus without complications; E78.5 Hyperlipidemia, unspecified; I25.2 Old myocardial infarction; K21.9 Gastro-esophageal reflux disease without esophagitis; M79.7 Fibromyalgia; Z86.74 Personal history of sudden cardiac arrest; Z86.73 Personal history of transient ischemic attack (TIA), and cerebral infarction without residual deficits; F17.200 Nicotine dependence, unspecified, uncomplicated
CPT/HCPCS: 80048; 82803; 83880; 84484; 85027; 85610; 85730; 93005; 99281; 99285; J1885; J7030

== ENCOUNTER 2017-07-17 00:19 | Emergency (ER) | payer OTHER ==
[~2017-07-17] VITALS: Ht 177.8 cm; Wt 75.3 kg
[2017-07-17 01:44] LABS: HEMATOCRIT 29.2 % (38.0-50.0); MCH 23.9 PG (29.0-34.0); MCHC 32.2 G/DL (30.0-36.0); MCV 74.3 FL (86-99); MEAN PLAT.VOLUME 9.5 uM^3 (9.0-12.4); PLATELET COUNT 240 K/uL (156-360); RBC DIS.WIDTH-CV 16.3 % (11.8-14.6); RBC DIS.WIDTH-SD 44.4 % (39-53); RED BLOOD COUNT 3.93 M/uL (4.00-5.50); WHITE BLOOD COUNT 5.6 K/uL (4.1-10.2)
[2017-07-17 01:53] LABS: CHLORIDE 106 mEq/L (99-109); POTASSIUM 4.5 mEq/L (3.7-5.4); SODIUM 135 mEq/L (136-147)
[2017-07-17 01:55] LABS: GLUCOSE 86 mg/dL (70-99)
[2017-07-17 01:56] LABS: ANION GAP 9 MEQ/L (2-14)
[2017-07-17 01:59] LABS: GFR ESTIMATE (CALCULATED) 36 mL/min/
[2017-07-17 02:12] LABS: UREA NITROGEN (BUN) 32 mg/dL (9-23)
[2017-07-17 02:29] LABS: POINT-OF-CARE METER ID UU14100415
[2017-07-17] MEDS ORDERED: MECLIZINE HCL25 MG PO (06:08)
[2017-07-17 06:32] VITALS: BP 130/100
== END 2017-07-17 06:46 | disposition home or self-care (01) ==
LOC: EME → EDBD 00:19 → EME 00:19
PROVIDERS: Emergency Medicine
DX: R42 Dizziness and giddiness (principal); R51 Headache; E11.9 Type 2 diabetes mellitus without complications; J44.9 Chronic obstructive pulmonary disease, unspecified; E78.5 Hyperlipidemia, unspecified; I10 Essential (primary) hypertension; I25.2 Old myocardial infarction; K21.9 Gastro-esophageal reflux disease without esophagitis; Z86.73 Personal history of transient ischemic attack (TIA), and cerebral infarction without residual deficits; F17.200 Nicotine dependence, unspecified, uncomplicated; Z79.4 Long term (current) use of insulin
CPT/HCPCS: 70450; 80048; 82948; 85027; 93005; 99281; 99285; J1200; J2765; J7030

== ENCOUNTER 2017-07-19 00:58 | Emergency (ER) | payer OTHER ==
[~2017-07-19] VITALS: Ht 177.8 cm; Wt 78.0 kg
[2017-07-19 01:26] LABS: HEMATOCRIT 31.2 % (38.0-50.0); MCH 23.8 PG (29.0-34.0); MCHC 31.4 G/DL (30.0-36.0); MCV 75.7 FL (86-99); PLATELET COUNT 240 K/uL (156-360); RBC DIS.WIDTH-CV 16.3 % (11.8-14.6); RBC DIS.WIDTH-SD 44.7 % (39-53); RED BLOOD COUNT 4.12 M/uL (4.00-5.50); WHITE BLOOD COUNT 6.1 K/uL (4.1-10.2)
[2017-07-19 01:49] LABS: TROP-I INTERPRETATION NEGATIVE; TROPONIN-I 0.03 ng/mL (0.0-0.30)
[2017-07-19 01:53] LABS: CHLORIDE 111 mEq/L (99-109); SODIUM 139 mEq/L (136-147)
[2017-07-19 01:55] LABS: GLUCOSE 125 mg/dL (70-99)
[2017-07-19 01:57] LABS: ANION GAP 12 MEQ/L (2-14); TOTAL BILIRUBIN 0.3 mg/dL (0.0-1.0)
[2017-07-19 01:59] LABS: ALKALINE PHOSPHATASE 74 IU/L (3-129); GFR ESTIMATE (CALCULATED) 34 mL/min/
[2017-07-19 02:00] LABS: UREA NITROGEN (BUN) 28 mg/dL (9-23)
[2017-07-19 02:02] LABS: LIPASE 158 U/L (1.0-51.0)
[2017-07-19 02:03] LABS: CREATINE KINASE 56 IU/L (1-294); TOTAL CK 56 IU/L (1-294)
[2017-07-19 02:27] LABS: CK-MB 3.8 ng/mL (0.0-4.9)
[2017-07-19 02:46] LABS: ADD MIUA? YES; BILIRUBIN NEGATIVE; BLOOD SMALL; COLOR STRAW ((YELLOW)); GLUCOSE (STRIP) NEGATIVE; KETONES NEGATIVE; LEUKOCYTES NEGATIVE; NITRITE NEGATIVE; PROTEIN (STRIP) 100; SPECIFIC GRAVITY 1.004 (1.000-1.030); UROBILINOGEN 0.2 MG/DL (0.2-1.0)
[2017-07-19 02:49] LABS: BACTERIA NONE SEEN /HPF; EPITHELIAL CELLS RARE /HPF; MUCUS TRACE /LPF; RED BLOOD CELLS 0-5 /HPF (0-5); UCUL ADDED? NO; WHITE BLOOD CELLS 0-5 /HPF (0-5)
[2017-07-19 03:09] LABS: SERUM ETHYL ALCOHOL 39 mg/dL
[2017-07-19 04:35] VITALS: BP 109/69
== END 2017-07-19 04:46 | disposition home or self-care (01) ==
LOC: EME → EDBD 00:58 → EME 04:46
PROVIDERS: Emergency Medicine
DX: R53.1 Weakness (principal); I12.0 Hypertensive chronic kidney disease with stage 5 chronic kidney disease or end stage renal disease; N18.6 End stage renal disease; D64.9 Anemia, unspecified; I25.2 Old myocardial infarction; J44.9 Chronic obstructive pulmonary disease, unspecified; E11.9 Type 2 diabetes mellitus without complications; M79.7 Fibromyalgia; K21.9 Gastro-esophageal reflux disease without esophagitis; E78.5 Hyperlipidemia, unspecified; Z86.74 Personal history of sudden cardiac arrest; F17.200 Nicotine dependence, unspecified, uncomplicated; Z86.73 Personal history of transient ischemic attack (TIA), and cerebral infarction without residual deficits
CPT/HCPCS: 71010; 80053; 81003; 82550; 82553; 83690; 84484; 85027; 93005; 99281; 99284; G0480

== ENCOUNTER 2017-07-31 01:00 | Emergency (ER) | payer OTHER ==
[~2017-07-31] VITALS: Ht 177.8 cm; Wt 79.3 kg
[2017-07-31 01:35] LABS: HEMATOCRIT 29.9 % (38.0-50.0); MCHC 32.4 G/DL (30.0-36.0); MCV 73.8 FL (86-99); MEAN PLAT.VOLUME 9.6 uM^3 (9.0-12.4); PLATELET COUNT 231 K/uL (156-360); RBC DIS.WIDTH-CV 16.2 % (11.8-14.6); RBC DIS.WIDTH-SD 43.7 % (39-53); RED BLOOD COUNT 4.05 M/uL (4.00-5.50); WHITE BLOOD COUNT 6.5 K/uL (4.1-10.2)
[2017-07-31 01:40] LABS: CHLORIDE 111 mEq/L (99-109); POTASSIUM 4.2 mEq/L (3.7-5.4); SODIUM 136 mEq/L (136-147)
[2017-07-31 01:41] LABS: GLUCOSE 119 mg/dL (70-99)
[2017-07-31 01:43] LABS: ANION GAP 10 MEQ/L (2-14)
[2017-07-31 01:45] LABS: GFR ESTIMATE (CALCULATED) 38 mL/min/
[2017-07-31 01:46] LABS: UREA NITROGEN (BUN) 38 mg/dL (9-23)
[2017-07-31] MEDS ORDERED: NORCO 5/3251 TABLET PO (03:49)
[2017-07-31] MEDS ORDERED: LIDODERM 5% P1 PATCH TD (03:49)
[2017-07-31 04:26] VITALS: BP 153/88
== END 2017-07-31 04:22 | disposition home or self-care (01) ==
LOC: EME → EDBD 01:00 → EME 04:22
PROVIDERS: Emergency Medicine
DX: S20.211A Contusion of right front wall of thorax, initial encounter (principal); D63.1 Anemia in chronic kidney disease; E11.22 Type 2 diabetes mellitus with diabetic chronic kidney disease; I12.0 Hypertensive chronic kidney disease with stage 5 chronic kidney disease or end stage renal disease; N18.9 Chronic kidney disease, unspecified; W10.9XXA Fall (on) (from) unspecified stairs and steps, initial encounter; R29.6 Repeated falls; Z79.4 Long term (current) use of insulin; E78.5 Hyperlipidemia, unspecified; I25.2 Old myocardial infarction; Z86.73 Personal history of transient ischemic attack (TIA), and cerebral infarction without residual deficits; Z86.74 Personal history of sudden cardiac arrest; Z95.5 Presence of coronary angioplasty implant and graft; F17.200 Nicotine dependence, unspecified, uncomplicated; M79.7 Fibromyalgia
CPT/HCPCS: 70450; 71100; 72040; 72125; 80048; 85027; 93005; 99281; 99284

== ENCOUNTER 2017-08-09 15:57 | Observation (INO) | payer OTHER ==
[~2017-08-09] VITALS: Ht 177.8 cm; Wt 77.6 kg
[~2017-08-09 15:57] MED LIST changes: +LIDODERM 5% P1 PATCH TD
[2017-08-09 17:39] LABS: HEMATOCRIT 33.3 % (38.0-50.0); MCH 23.8 PG (29.0-34.0); MCHC 31.8 G/DL (30.0-36.0); MCV 74.8 FL (86-99); MEAN PLAT.VOLUME 9.4 uM^3 (9.0-12.4); PLATELET COUNT 254 K/uL (156-360); RBC DIS.WIDTH-CV 17.2 % (11.8-14.6); RBC DIS.WIDTH-SD 46.1 % (39-53); RED BLOOD COUNT 4.45 M/uL (4.00-5.50); WHITE BLOOD COUNT 7.4 K/uL (4.1-10.2)
[2017-08-09 17:43] LABS: CHLORIDE 108 mEq/L (99-109); POTASSIUM 4.6 mEq/L (3.7-5.4); SODIUM 140 mEq/L (136-147)
[2017-08-09 17:45] LABS: GLUCOSE 129 mg/dL (70-99)
[2017-08-09 17:46] LABS: ANION GAP 14 MEQ/L (2-14)
[2017-08-09 17:47] LABS: TOTAL BILIRUBIN 0.2 mg/dL (0.0-1.0)
[2017-08-09 17:49] LABS: ALKALINE PHOSPHATASE 96 IU/L (3-129); GFR ESTIMATE (CALCULATED) 31 mL/min/
[2017-08-09 17:50] LABS: UREA NITROGEN (BUN) 43 mg/dL (9-23)
[2017-08-09 17:52] LABS: CREATINE KINASE 39 IU/L (1-294); TOTAL CK 39 IU/L (1-294)
[2017-08-09 17:55] LABS: TROP-I INTERPRETATION NEGATIVE; TROPONIN-I 0.04 ng/mL (0.0-0.30)
[2017-08-09 18:00] LABS: CK-MB 3.4 ng/mL (0.0-4.9)
[2017-08-09] MEDS ORDERED: LO-DOSE ASPIRIN81 M1 PO (20:08)
[2017-08-09] MEDS ORDERED: LISINOPRIL5 MG PO (20:08)
[2017-08-09] MEDS ORDERED: AMLODIPINE BESYL5 MG PO (20:08)
[2017-08-10 00:47] LABS: TROP-I INTERPRETATION NEGATIVE; TROPONIN-I 0.04 ng/mL (0.0-0.30)
[2017-08-10 04:26] VITALS: BP 100/70
[2017-08-10 06:05] LABS: MCH 24.1 PG (29.0-34.0); MCV 77.7 FL (86-99); MEAN PLAT.VOLUME 9.8 uM^3 (9.0-12.4); PLATELET COUNT 215 K/uL (156-360); RBC DIS.WIDTH-CV 17.3 % (11.8-14.6); RBC DIS.WIDTH-SD 48.8 % (39-53); RED BLOOD COUNT 3.99 M/uL (4.00-5.50); WHITE BLOOD COUNT 4.6 K/uL (4.1-10.2)
[2017-08-10 06:26] LABS: ANION GAP 7 MEQ/L (2-14); CHLORIDE 107 MEQ/L (99-109); POTASSIUM 4.9 MEQ/L (3.7-5.4); SAMPLE HEMOLYSIS CHECK 0; SAMPLE ICTERIC CHECK 0; SAMPLE LIPEMIA CHECK 0; SODIUM 135 MEQ/L (136-147); UREA NITROGEN (BUN) 41 mg/dL (9-23)
[2017-08-10 06:43] LABS: GFR ESTIMATE (CALCULATED) 43 mL/min/; GLUCOSE 257 mg/dL (70-99)
[2017-08-10 06:50] LABS: TROP-I INTERPRETATION NEGATIVE; TROPONIN-I 0.03 ng/mL (0.0-0.30)
[2017-08-10 08:30] VITALS: BP 103/73
[2017-08-10 12:45] VITALS: BP 131/81
[2017-08-10 13:20] VITALS: BP 131/81
[2017-08-10 13:40] LABS: ADD MIUA? YES; BILIRUBIN NEGATIVE; BLOOD NEGATIVE; COLOR STRAW ((YELLOW)); GLUCOSE (STRIP) 50; KETONES NEGATIVE; LEUKOCYTES NEGATIVE; NITRITE NEGATIVE; PROTEIN (STRIP) 100; SPECIFIC GRAVITY 1.008 (1.000-1.030); UROBILINOGEN 0.2 MG/DL (0.2-1.0)
[2017-08-10 14:12] LABS: BACTERIA NONE SEEN /HPF; CASTS NONE SEEN /LPF; CRYSTALS NONE SEEN; EPITHELIAL CELLS RARE /HPF; MUCUS NONE SEEN /LPF; RED BLOOD CELLS 0-5 /HPF (0-5); UCUL ADDED? NO; WHITE BLOOD CELLS 0-5 /HPF (0-5)
== END 2017-08-10 15:35 | disposition home or self-care (01) ==
LOC: EME 15:57 → EDOF 20:34 → ENRESERV 20:35 → 5WEST 21:41
PROVIDERS: Emergency Medicine; Physician Assistant Medical
DX: R55 Syncope and collapse (principal); R07.9 Chest pain, unspecified; I13.0 Hypertensive heart and chronic kidney disease with heart failure and stage 1 through stage 4 chronic kidney disease, or unspecified chronic kidney disease; I50.32 Chronic diastolic (congestive) heart failure; N18.3 Chronic kidney disease, stage 3 (moderate); E11.22 Type 2 diabetes mellitus with diabetic chronic kidney disease; I73.9 Peripheral vascular disease, unspecified; I25.10 Atherosclerotic heart disease of native coronary artery without angina pectoris; I27.2 Other secondary pulmonary hypertension; I25.2 Old myocardial infarction; Z86.73 Personal history of transient ischemic attack (TIA), and cerebral infarction without residual deficits; I63.233 Cerebral infarction due to unspecified occlusion or stenosis of bilateral carotid arteries; J44.9 Chronic obstructive pulmonary disease, unspecified; I35.0 Nonrheumatic aortic (valve) stenosis; F32.9 Major depressive disorder, single episode, unspecified; F41.9 Anxiety disorder, unspecified; M79.602 Pain in left arm; Z82.49 Family history of ischemic heart disease and other diseases of the circulatory system; K21.9 Gastro-esophageal reflux disease without esophagitis; E78.5 Hyperlipidemia, unspecified; Z86.19 Personal history of other infectious and parasitic diseases; D64.9 Anemia, unspecified; E87.2 Acidosis; Z87.891 Personal history of nicotine dependence; Z79.01 Long term (current) use of anticoagulants; Z79.4 Long term (current) use of insulin; Z86.74 Personal history of sudden cardiac arrest; Z79.82 Long term (current) use of aspirin; Z91.19 Patient's noncompliance with other medical treatment and regimen
CPT/HCPCS: 71010; 80048; 80053; 81003; 82550; 82553; 83735; 84484; 85027; 93005; 99281; 99285; G0378; J1644; J2270; J7030

== ENCOUNTER 2017-08-14 19:13 | Observation (INO) | payer OTHER ==
[~2017-08-14] VITALS: Ht 177.8 cm; Wt 76.1 kg
[2017-08-14 19:46] LABS: HEMATOCRIT 31.5 % (38.0-50.0); MCH 24.3 PG (29.0-34.0); MCHC 32.4 G/DL (30.0-36.0); MEAN PLAT.VOLUME 9.3 uM^3 (9.0-12.4); PLATELET COUNT 216 K/uL (156-360); RBC DIS.WIDTH-CV 17.2 % (11.8-14.6); WHITE BLOOD COUNT 6.4 K/uL (4.1-10.2)
[2017-08-14 19:52] LABS: INTER. NORMALIZED RATIO 1.3; PROTHROMBIN TIME 14.6 SEC (10.2-12.9)
[2017-08-14 19:55] LABS: CHLORIDE 110 mEq/L (99-109); SODIUM 140 mEq/L (136-147)
[2017-08-14 19:58] LABS: ANION GAP 16 MEQ/L (2-14)
[2017-08-14 20:00] LABS: GFR ESTIMATE (CALCULATED) 36 mL/min/
[2017-08-14 20:01] LABS: UREA NITROGEN (BUN) 32 mg/dL (9-23)
[2017-08-14 20:04] LABS: GLUCOSE 88 mg/dL (70-99); POTASSIUM 3.8 mEq/L (3.7-5.4)
[2017-08-14 20:08] LABS: TROP-I INTERPRETATION NEGATIVE; TROPONIN-I 0.03 ng/mL (0.0-0.30)
[2017-08-14 20:26] LABS: TOTAL BILIRUBIN 0.2 mg/dL (0.0-1.0)
[2017-08-14 20:27] LABS: PTT 49.3 SEC (25-37)
[2017-08-14 20:40] LABS: ALKALINE PHOSPHATASE 94 IU/L (3-129)
[2017-08-14 20:44] LABS: LIPASE 123 U/L (1.0-51.0)
[2017-08-14 23:05] LABS: BASE EXCESS -7.7 mEq/L (-3 to +3); BICARBONATE 17.4 mEq/L (22-26); CARBOXY HGB 2.4 % (0-5); COMMENTS - BLOOD GASES C+; FI02 21 %; METHEMOGLOBIN 0.7 % (0-1.5); PCO2 33 mm Hg (35-45); PO2 84 mm Hg (80-100); SITE RR; TOTAL RESP RATE 19 resp/min; pH 7.33 (7.35-7.45)
[2017-08-14 23:17] LABS: CHLORIDE 110 mEq/L (99-109); POTASSIUM 4.3 mEq/L (3.7-5.4); SODIUM 138 mEq/L (136-147)
[2017-08-14 23:20] LABS: ANION GAP 13 MEQ/L (2-14)
[2017-08-14 23:23] LABS: ALKALINE PHOSPHATASE 92 IU/L (3-129); GFR ESTIMATE (CALCULATED) 38 mL/min/
[2017-08-14 23:24] LABS: UREA NITROGEN (BUN) 34 mg/dL (9-23)
[2017-08-14 23:27] LABS: GLUCOSE 142 mg/dL (70-99); TOTAL BILIRUBIN 0.1 mg/dL (0.0-1.0)
[2017-08-14] MEDS ORDERED: PRADAXA150 MG PO (23:55)
[2017-08-14 23:58] VITALS: BP 152/87
[2017-08-15 00:15] LABS: SERUM ETHYL ALCOHOL 52 mg/dL
[2017-08-15 03:16] LABS: ADD MIUA? NO; BILIRUBIN NEGATIVE; BLOOD NEGATIVE; COLOR STRAW ((YELLOW)); GLUCOSE (STRIP) 50; KETONES NEGATIVE; LEUKOCYTES NEGATIVE; NITRITE NEGATIVE; PROTEIN (STRIP) 30; SPECIFIC GRAVITY 1.009 (1.000-1.030); UROBILINOGEN 0.2 MG/DL (0.2-1.0)
[2017-08-15 03:31] VITALS: BP 120/70
[2017-08-15 03:39] LABS: AMPHETAMINES QUANT VALUE 0 NG/ML; BARBITUATES QUANT VALUE 0 NG/ML; BENZODIAZEPINES, URINE SCREEN POSITIVE (200 ng/mL); MARIJUANA QUANT VALUE 0 NG/ML; PHENCYCLIDINE QUANT VALUE 0 NG/ML; UCUL ADDED? NO
[2017-08-15] MEDS ORDERED: LIDODERM 5% P1 PATCH TD (04:20)
[2017-08-15 07:14] VITALS: BP 121/79
[2017-08-15 09:32] LABS: ANION GAP 5 MEQ/L (2-14); CHLORIDE 107 MEQ/L (99-109); GFR ESTIMATE (CALCULATED) 50 mL/min/; GLUCOSE 144 mg/dL (70-99); SAMPLE HEMOLYSIS CHECK 0; SAMPLE ICTERIC CHECK 0; SAMPLE LIPEMIA CHECK 0; SODIUM 137 MEQ/L (136-147); UREA NITROGEN (BUN) 29 mg/dL (9-23)
[2017-08-15 11:32] VITALS: BP 127/69
[2017-08-15 11:34] VITALS: BP 129/72
[2017-08-15 11:35] VITALS: BP 137/71
[2017-08-15] MEDS ORDERED: FUROSEMIDE20 MG PO (11:37)
[2017-08-15] MEDS ORDERED: THIAMINE HCL100 MG PO (11:40)
[2017-08-15 12:20] LABS: TROP-I INTERPRETATION NEGATIVE; TROPONIN-I 0.05 ng/mL (0.0-0.30)
[2017-08-15 14:05] LABS: POINT-OF-CARE METER ID UU13113700
== END 2017-08-15 15:29 | disposition home or self-care (01) ==
LOC: EME 19:13 → 5WEST 22:42 → EDOF 22:42 → ENRESERV 22:49 → 5WEST 23:33
PROVIDERS: Emergency Medicine; Hospitalist; Physician Assistant Medical
DX: R07.89 Other chest pain (principal); E87.2 Acidosis; R55 Syncope and collapse; R78.0 Finding of alcohol in blood; I12.9 Hypertensive chronic kidney disease with stage 1 through stage 4 chronic kidney disease, or unspecified chronic kidney disease; N18.3 Chronic kidney disease, stage 3 (moderate); D63.1 Anemia in chronic kidney disease; R74.8 Abnormal levels of other serum enzymes; E11.22 Type 2 diabetes mellitus with diabetic chronic kidney disease; I25.10 Atherosclerotic heart disease of native coronary artery without angina pectoris; E78.5 Hyperlipidemia, unspecified; I48.2 Chronic atrial fibrillation; F17.200 Nicotine dependence, unspecified, uncomplicated; R19.7 Diarrhea, unspecified; J44.9 Chronic obstructive pulmonary disease, unspecified; I27.2 Other secondary pulmonary hypertension; I25.2 Old myocardial infarction; I65.23 Occlusion and stenosis of bilateral carotid arteries; K21.9 Gastro-esophageal reflux disease without esophagitis; E11.42 Type 2 diabetes mellitus with diabetic polyneuropathy; Z86.73 Personal history of transient ischemic attack (TIA), and cerebral infarction without residual deficits; Z86.74 Personal history of sudden cardiac arrest; G89.29 Other chronic pain; Z79.4 Long term (current) use of insulin; Z79.01 Long term (current) use of anticoagulants; Z79.82 Long term (current) use of aspirin
CPT/HCPCS: 36600; 71020; 80048; 80048 91; 80053; 80076; 80306 90; 81003; 82803; 82948; 83605; 83690; 83880; 84484; 85027; 85610; 85730; 85730 GA; 93005; 99281; 99285; G0378; G0480; J2270; J7120

== ENCOUNTER 2017-08-17 17:55 | Observation (INO) | payer OTHER ==
[~2017-08-17] VITALS: Ht 177.8 cm; Wt 75.4 kg
[2017-08-17] MEDS ORDERED: SPIRIVA1 INHALATI IH (18:11)
[2017-08-17] MEDS ORDERED: LEVEMIR100 UNIT/2 SC (18:12)
[2017-08-17] MEDS ORDERED: PANTOPRAZOLE SO40 MG PO (18:16)
[2017-08-17] MEDS ORDERED: VENTOLIN HFA18 GM IH (18:19)
[2017-08-17 20:11] LABS: MCH 24.5 PG (29.0-34.0); MCHC 32.8 G/DL (30.0-36.0); MCV 74.6 FL (86-99); MEAN PLAT.VOLUME 9.6 uM^3 (9.0-12.4); PLATELET COUNT 237 K/uL (156-360); RBC DIS.WIDTH-SD 45.8 % (39-53); RED BLOOD COUNT 4.29 M/uL (4.00-5.50); WHITE BLOOD COUNT 7.9 K/uL (4.1-10.2)
[2017-08-17 20:16] LABS: CHLORIDE 110 mEq/L (99-109); POTASSIUM 4.3 mEq/L (3.7-5.4); SODIUM 139 mEq/L (136-147)
[2017-08-17 20:18] LABS: GLUCOSE 145 mg/dL (70-99)
[2017-08-17 20:19] LABS: ANION GAP 9 MEQ/L (2-14)
[2017-08-17 20:22] LABS: GFR ESTIMATE (CALCULATED) 34 mL/min/
[2017-08-17 20:23] LABS: UREA NITROGEN (BUN) 31 mg/dL (9-23)
[2017-08-17 20:31] LABS: TROP-I INTERPRETATION NEGATIVE; TROPONIN-I 0.02 ng/mL (0.0-0.30)
[2017-08-18 00:01] VITALS: BP 125/71
[2017-08-18 04:40] VITALS: BP 109/75
[2017-08-18 05:38] LABS: HEMATOCRIT 30.8 % (38.0-50.0); MCH 24.7 PG (29.0-34.0); MCHC 31.8 G/DL (30.0-36.0); MCV 77.8 FL (86-99); MEAN PLAT.VOLUME 10.4 uM^3 (9.0-12.4); PLATELET COUNT 194 K/uL (156-360); RBC DIS.WIDTH-CV 17.2 % (11.8-14.6); RBC DIS.WIDTH-SD 48.8 % (39-53); RED BLOOD COUNT 3.96 M/uL (4.00-5.50); WHITE BLOOD COUNT 5.4 K/uL (4.1-10.2)
[2017-08-18 05:58] LABS: TROP-I INTERPRETATION NEGATIVE; TROPONIN-I 0.03 ng/mL (0.0-0.30)
[2017-08-18 06:38] LABS: ANION GAP 5 MEQ/L (2-14); CHLORIDE 108 MEQ/L (99-109); GFR ESTIMATE (CALCULATED) 40 mL/min/; SAMPLE HEMOLYSIS CHECK 0; SAMPLE ICTERIC CHECK 0; SAMPLE LIPEMIA CHECK 0; SODIUM 138 MEQ/L (136-147); UREA NITROGEN (BUN) 29 mg/dL (9-23)
[2017-08-18 06:42] LABS: GLUCOSE 279 mg/dL (70-99)
[2017-08-18 07:18] LABS: AMPHETAMINES QUANT VALUE 0 NG/ML; BARBITUATES QUANT VALUE 0 NG/ML; BENZODIAZEPINES, URINE SCREEN POSITIVE (200 ng/mL); MARIJUANA QUANT VALUE 0 NG/ML; PHENCYCLIDINE QUANT VALUE 0 NG/ML
[2017-08-18 08:09] VITALS: BP 130/88
[2017-08-18 08:16] LABS: POINT-OF-CARE METER ID UU13113700
[2017-08-18 11:19] LABS: POINT-OF-CARE METER ID UU13113700
[2017-08-18 11:58] VITALS: BP 130/76
[2017-08-18 12:12] LABS: TROP-I INTERPRETATION NEGATIVE; TROPONIN-I 0.03 ng/mL (0.0-0.30)
[2017-08-18] MEDS ORDERED: PRADAXA150 MG PO (12:43)
[2017-08-18 16:27] VITALS: BP 132/77
== END 2017-08-18 16:43 | disposition home or self-care (01) ==
LOC: EME 17:55 → EDOF 21:50 → 5WEST 21:50 → ENRESERV 21:53 → 5WEST 23:53 → ENPENDDIS 08-18 → 5WEST 08-18 16:43
PROVIDERS: Hospitalist
DX: R55 Syncope and collapse (principal); R07.9 Chest pain, unspecified; I65.23 Occlusion and stenosis of bilateral carotid arteries; I13.2 Hypertensive heart and chronic kidney disease with heart failure and with stage 5 chronic kidney disease, or end stage renal disease; I50.42 Chronic combined systolic (congestive) and diastolic (congestive) heart failure; N18.3 Chronic kidney disease, stage 3 (moderate); E11.22 Type 2 diabetes mellitus with diabetic chronic kidney disease; I25.10 Atherosclerotic heart disease of native coronary artery without angina pectoris; Z95.5 Presence of coronary angioplasty implant and graft; I25.2 Old myocardial infarction; E78.5 Hyperlipidemia, unspecified; I48.2 Chronic atrial fibrillation; J44.9 Chronic obstructive pulmonary disease, unspecified; I27.2 Other secondary pulmonary hypertension; E11.21 Type 2 diabetes mellitus with diabetic nephropathy; E11.40 Type 2 diabetes mellitus with diabetic neuropathy, unspecified; K21.9 Gastro-esophageal reflux disease without esophagitis; Z79.4 Long term (current) use of insulin; G89.29 Other chronic pain; F17.210 Nicotine dependence, cigarettes, uncomplicated; Z91.14 Patient's other noncompliance with medication regimen; Z82.49 Family history of ischemic heart disease and other diseases of the circulatory system; Z86.74 Personal history of sudden cardiac arrest; Z86.73 Personal history of transient ischemic attack (TIA), and cerebral infarction without residual deficits
CPT/HCPCS: 70450; 71020; 80048; 80306 90; 82948; 84484; 85027; 93005; 94640; 99202; 99281; 99285; G0378; J2270; J2405

== ENCOUNTER 2017-08-25 03:09 | Emergency (ER) | payer OTHER ==
[~2017-08-25] VITALS: Ht 177.8 cm; Wt 80.0 kg
[2017-08-25 04:01] LABS: HEMATOCRIT 31.2 % (38.0-50.0); MCH 24.7 PG (29.0-34.0); MCHC 32.4 G/DL (30.0-36.0); MCV 76.3 FL (86-99); MEAN PLAT.VOLUME 10.5 uM^3 (9.0-12.4); PLATELET COUNT 221 K/uL (156-360); RBC DIS.WIDTH-CV 16.5 % (11.8-14.6); RBC DIS.WIDTH-SD 45.6 % (39-53); RED BLOOD COUNT 4.09 M/uL (4.00-5.50); WHITE BLOOD COUNT 5.4 K/uL (4.1-10.2)
[2017-08-25 04:07] LABS: INTER. NORMALIZED RATIO 1.5; PROTHROMBIN TIME 16.3 SEC (10.2-12.9)
[2017-08-25 04:09] LABS: PTT 66.5 SEC (25-37)
[2017-08-25 04:13] LABS: CHLORIDE 109 mEq/L (99-109); POTASSIUM 4.2 mEq/L (3.7-5.4); SODIUM 139 mEq/L (136-147)
[2017-08-25 04:15] LABS: GLUCOSE 244 mg/dL (70-99)
[2017-08-25 04:16] LABS: ANION GAP 11 MEQ/L (2-14)
[2017-08-25 04:17] LABS: TOTAL BILIRUBIN 0.2 mg/dL (0.0-1.0)
[2017-08-25 04:18] LABS: ALKALINE PHOSPHATASE 92 IU/L (3-129)
[2017-08-25 04:19] LABS: GFR ESTIMATE (CALCULATED) 43 mL/min/
[2017-08-25 04:20] LABS: UREA NITROGEN (BUN) 35 mg/dL (9-23)
[2017-08-25 04:22] LABS: LIPASE 133 U/L (1.0-51.0)
[2017-08-25 04:22] LABS: TROP-I INTERPRETATION NEGATIVE; TROPONIN-I 0.03 ng/mL (0.0-0.30)
[2017-08-25 05:17] VITALS: BP 158/98
== END 2017-08-25 05:19 | disposition home or self-care (01) ==
LOC: EME → EDBD 03:09 → EME 05:19
PROVIDERS: Emergency Medicine
DX: R55 Syncope and collapse (principal); D64.9 Anemia, unspecified; R74.8 Abnormal levels of other serum enzymes; E11.22 Type 2 diabetes mellitus with diabetic chronic kidney disease; I12.0 Hypertensive chronic kidney disease with stage 5 chronic kidney disease or end stage renal disease; G89.29 Other chronic pain; R07.9 Chest pain, unspecified; N18.6 End stage renal disease; M79.7 Fibromyalgia; K21.9 Gastro-esophageal reflux disease without esophagitis; J44.9 Chronic obstructive pulmonary disease, unspecified; F32.9 Major depressive disorder, single episode, unspecified; E78.5 Hyperlipidemia, unspecified; I25.2 Old myocardial infarction; I69.912 Visuospatial deficit and spatial neglect following unspecified cerebrovascular disease; H54.40 Blindness, one eye, unspecified eye; Z79.82 Long term (current) use of aspirin; Z86.73 Personal history of transient ischemic attack (TIA), and cerebral infarction without residual deficits; Z79.4 Long term (current) use of insulin; Z88.8 Allergy status to other drugs, medicaments and biological substances; F17.200 Nicotine dependence, unspecified, uncomplicated
CPT/HCPCS: 70450; 71010; 80053; 83690; 83880; 84484; 85027; 85610; 85730; 93005; 99281; 99284

== ENCOUNTER 2017-08-28 11:52 | Emergency (ER) | payer OTHER ==
[~2017-08-28] VITALS: Ht 180.3 cm; Wt 77.3 kg
[2017-08-28 13:36] LABS: EOSINOPHIL (%) 0.2 % (0-5); HEMATOCRIT 36.1 % (38.0-50.0); IMMATURE GRANULOCYTE (%) 0.2 % (0.0-0.7); INSTRUMENT ABS NEUTROPHIL CT 7.9 K/uL; LYMPHOCYTE COUNT 1.1 K/uL (1.0-2.8); MCH 24.2 PG (29.0-34.0); MCHC 31.9 G/DL (30.0-36.0); MEAN PLAT.VOLUME 9.6 uM^3 (9.0-12.4); MONOCYTE (%) 13.4 % (3-12); MONOCYTE COUNT 1.4 K/uL (0-0.8); NEUTROPHIL (%) 75.6 % (45-76); NEUTROPHIL COUNT 7.9 K/uL (1.8-6.4); PLATELET COUNT 249 K/uL (156-360); RBC DIS.WIDTH-CV 16.6 % (11.8-14.6); RBC DIS.WIDTH-SD 45.5 % (39-53); RED BLOOD COUNT 4.75 M/uL (4.00-5.50); WHITE BLOOD COUNT 10.4 K/uL (4.1-10.2)
[2017-08-28 13:47] LABS: CHLORIDE 105 mEq/L (99-109); SODIUM 137 mEq/L (136-147)
[2017-08-28 13:49] LABS: GLUCOSE 249 mg/dL (70-99)
[2017-08-28 13:51] LABS: ANION GAP 10 MEQ/L (2-14)
[2017-08-28 13:52] LABS: TOTAL BILIRUBIN 0.4 mg/dL (0.0-1.0)
[2017-08-28 13:53] LABS: ALKALINE PHOSPHATASE 94 IU/L (3-129); GFR ESTIMATE (CALCULATED) 19 mL/min/
[2017-08-28 13:55] LABS: UREA NITROGEN (BUN) 59 mg/dL (9-23)
[2017-08-28 13:56] LABS: CREATINE KINASE 719 IU/L (1-294); POTASSIUM 6.2 mEq/L (3.7-5.4); TOTAL CK 719 IU/L (1-294)
[2017-08-28 13:57] LABS: TROP-I INTERPRETATION NEGATIVE; TROPONIN-I 0.11 ng/mL (0.0-0.30)
[2017-08-28 14:02] LABS: CK-MB 8.7 ng/mL (0.0-4.9)
[2017-08-28 16:43] VITALS: BP 143/101
== END 2017-08-28 16:46 | disposition designated cancer center or children's hospital, planned readmission (85) ==
LOC: EME 11:52
PROVIDERS: Emergency Medicine
DX: T20.20XA Burn of second degree of head, face, and neck, unspecified site, initial encounter (principal); T20.212A Burn of second degree of left ear [any part, except ear drum], initial encounter; I12.0 Hypertensive chronic kidney disease with stage 5 chronic kidney disease or end stage renal disease; E11.22 Type 2 diabetes mellitus with diabetic chronic kidney disease; N18.9 Chronic kidney disease, unspecified; X16.XXXA Contact with hot heating appliances, radiators and pipes, initial encounter; E87.5 Hyperkalemia; T31.0 Burns involving less than 10% of body surface; H74.8X2 Other specified disorders of left middle ear and mastoid; R07.9 Chest pain, unspecified; E78.5 Hyperlipidemia, unspecified; Z79.4 Long term (current) use of insulin; I25.2 Old myocardial infarction; Z95.5 Presence of coronary angioplasty implant and graft; Z86.73 Personal history of transient ischemic attack (TIA), and cerebral infarction without residual deficits; Z86.74 Personal history of sudden cardiac arrest; Z95.0 Presence of cardiac pacemaker; F17.200 Nicotine dependence, unspecified, uncomplicated; J44.9 Chronic obstructive pulmonary disease, unspecified; F32.9 Major depressive disorder, single episode, unspecified; K21.9 Gastro-esophageal reflux disease without esophagitis; Z79.82 Long term (current) use of aspirin; Z88.8 Allergy status to other drugs, medicaments and biological substances
CPT/HCPCS: 70450; 70486; 71010; 72125; 80053; 82550; 82553; 84484; 85025; 87040; 87801; 93005; 99281; 99285; J0610; J1170; J2270; J2765; J7030; J7050

== ENCOUNTER 2017-10-24 13:49 | Observation (INO) | payer OTHER ==
[~2017-10-24] VITALS: Ht 177.8 cm; Wt 72.9 kg
[~2017-10-24 13:49] MED LIST changes: +LEVAQUIN500 MG PO; +LISINOPRIL2.5 MG PO; +OLANZAPINE5 MG PO; +SILVADENE,SSD,T20 GM TP
[2017-10-24 14:53] LABS: EOSINOPHIL (%) 1.3 % (0-5); EOSINOPHIL COUNT 0.1 K/uL (0-0.3); HEMATOCRIT 29.7 % (38.0-50.0); IMMATURE GRANULOCYTE (%) 0.4 % (0.0-0.7); INSTRUMENT ABS NEUTROPHIL CT 7.2 K/uL; LYMPHOCYTE COUNT 0.7 K/uL (1.0-2.8); MCHC 32.7 G/DL (30.0-36.0); MCV 76.5 FL (86-99); MEAN PLAT.VOLUME 9.6 uM^3 (9.0-12.4); MONOCYTE (%) 9.1 % (3-12); MONOCYTE COUNT 0.8 K/uL (0-0.8); NEUTROPHIL (%) 80.6 % (45-76); NEUTROPHIL COUNT 7.2 K/uL (1.8-6.4); PLATELET COUNT 258 K/uL (156-360); RBC DIS.WIDTH-CV 18.3 % (11.8-14.6); RBC DIS.WIDTH-SD 50.5 % (39-53); RED BLOOD COUNT 3.88 M/uL (4.00-5.50); WHITE BLOOD COUNT 8.9 K/uL (4.1-10.2)
[2017-10-24 15:02] LABS: CHLORIDE 109 mEq/L (99-109); POTASSIUM 4.5 mEq/L (3.7-5.4); SODIUM 139 mEq/L (136-147)
[2017-10-24 15:03] LABS: GLUCOSE 229 mg/dL (70-99)
[2017-10-24 15:05] LABS: ANION GAP 10 MEQ/L (2-14)
[2017-10-24 15:07] LABS: GFR ESTIMATE (CALCULATED) 40 mL/min/
[2017-10-24 15:08] LABS: UREA NITROGEN (BUN) 42 mg/dL (9-23)
[2017-10-24 15:14] LABS: TROP-I INTERPRETATION NEGATIVE; TROPONIN-I 0.02 ng/mL (0.0-0.30)
[2017-10-24 20:11] VITALS: BP 121/88
[2017-10-24 21:01] LABS: TROP-I INTERPRETATION NEGATIVE; TROPONIN-I 0.02 ng/mL (0.0-0.30)
[2017-10-24] MEDS ORDERED: FUROSEMIDE20 MG PO ×2 (21:19→22:43)
[2017-10-24] MEDS ORDERED: NORVASC5 MG PO (22:44)
[2017-10-24 23:48] VITALS: BP 113/74
[2017-10-25 03:35] LABS: TROP-I INTERPRETATION NEGATIVE; TROPONIN-I 0.02 ng/mL (0.0-0.30)
[2017-10-25 04:46] VITALS: BP 110/76
[2017-10-25 04:48] VITALS: BP 117/74
[2017-10-25 04:49] VITALS: BP 130/75
[2017-10-25 07:31] VITALS: BP 109/66
[2017-10-25 08:24] LABS: HEMATOCRIT 28.4 % (38.0-50.0); MCH 24.5 PG (29.0-34.0); MCHC 31.7 G/DL (30.0-36.0); MCV 77.4 FL (86-99); MEAN PLAT.VOLUME 9.8 uM^3 (9.0-12.4); PLATELET COUNT 272 K/uL (156-360); RBC DIS.WIDTH-CV 18.3 % (11.8-14.6); RBC DIS.WIDTH-SD 51.8 % (39-53); RED BLOOD COUNT 3.67 M/uL (4.00-5.50); WHITE BLOOD COUNT 7.2 K/uL (4.1-10.2)
[2017-10-25 08:46] LABS: ANION GAP 8 MEQ/L (2-14); CHLORIDE 108 MEQ/L (99-109); GFR ESTIMATE (CALCULATED) 54 mL/min/; GLUCOSE 161 mg/dL (70-99); POTASSIUM 4.4 MEQ/L (3.7-5.4); SAMPLE HEMOLYSIS CHECK 0; SAMPLE ICTERIC CHECK 0; SAMPLE LIPEMIA CHECK 0; SODIUM 140 MEQ/L (136-147); UREA NITROGEN (BUN) 34 mg/dL (9-23)
[2017-10-25 11:59] VITALS: BP 128/74
== END 2017-10-25 14:03 | disposition home or self-care (01) ==
LOC: EME 13:49 → EDOF 16:45 → ENRESERV 16:48 → 5WEST 19:41 → ENPENDDIS 10-25 13:17 → 5WEST 10-25 14:03
PROVIDERS: Emergency Medicine; Internal Medicine; Nurse Practitioner Family
DX: R07.9 Chest pain, unspecified (principal); R55 Syncope and collapse; D64.9 Anemia, unspecified; I13.0 Hypertensive heart and chronic kidney disease with heart failure and stage 1 through stage 4 chronic kidney disease, or unspecified chronic kidney disease; I50.42 Chronic combined systolic (congestive) and diastolic (congestive) heart failure; N18.3 Chronic kidney disease, stage 3 (moderate); D63.1 Anemia in chronic kidney disease; I25.10 Atherosclerotic heart disease of native coronary artery without angina pectoris; Z95.5 Presence of coronary angioplasty implant and graft; G89.29 Other chronic pain; I48.91 Unspecified atrial fibrillation; I25.2 Old myocardial infarction; E78.5 Hyperlipidemia, unspecified; I25.5 Ischemic cardiomyopathy; I65.23 Occlusion and stenosis of bilateral carotid arteries; I08.3 Combined rheumatic disorders of mitral, aortic and tricuspid valves; J44.9 Chronic obstructive pulmonary disease, unspecified; I27.29 Other secondary pulmonary hypertension; Z86.73 Personal history of transient ischemic attack (TIA), and cerebral infarction without residual deficits; K21.9 Gastro-esophageal reflux disease without esophagitis; Z91.19 Patient's noncompliance with other medical treatment and regimen; Z91.14 Patient's other noncompliance with medication regimen; F17.210 Nicotine dependence, cigarettes, uncomplicated; Z82.49 Family history of ischemic heart disease and other diseases of the circulatory system; Z83.3 Family history of diabetes mellitus; Z83.49 Family history of other endocrine, nutritional and metabolic diseases
CPT/HCPCS: 71010; 80048; 84484; 85025; 85027; 93005; 99281; 99285; G0378; J2270

== ENCOUNTER 2017-11-08 21:07 | Inpatient (IN) | payer OTHER ==
[~2017-11-08] VITALS: Ht 2194.6 cm; Wt 72.1 kg
[~2017-11-08 21:07] MED LIST changes: +NORVASC5 MG PO
[2017-11-08 21:32] LABS: HEMATOCRIT 27.7 % (38.0-50.0); MCH 24.5 PG (29.0-34.0); MCHC 31.4 G/DL (30.0-36.0); MEAN PLAT.VOLUME 9.2 uM^3 (9.0-12.4); PLATELET COUNT 211 K/uL (156-360); RBC DIS.WIDTH-CV 17.9 % (11.8-14.6); RBC DIS.WIDTH-SD 50.7 % (39-53); RED BLOOD COUNT 3.55 M/uL (4.00-5.50); WHITE BLOOD COUNT 8.8 K/uL (4.1-10.2)
[2017-11-08 21:40] LABS: CHLORIDE 106 mEq/L (99-109); POTASSIUM 5.5 mEq/L (3.7-5.4); SODIUM 134 mEq/L (136-147)
[2017-11-08 21:42] LABS: GLUCOSE 148 mg/dL (70-99)
[2017-11-08 21:44] LABS: ANION GAP 12 MEQ/L (2-14)
[2017-11-08 21:46] LABS: GFR ESTIMATE (CALCULATED) 23 mL/min/ (58.99-99999)
[2017-11-08 21:47] LABS: UREA NITROGEN (BUN) 50 mg/dL (9-23)
[2017-11-08 21:52] LABS: TROP-I INTERPRETATION NEGATIVE; TROPONIN-I 0.06 ng/mL (0.0-0.30)
[2017-11-08 23:08] LABS: TOTAL BILIRUBIN 0.5 mg/dL (0.0-1.0)
[2017-11-08 23:09] LABS: ALKALINE PHOSPHATASE 106 IU/L (3-129)
[2017-11-08 23:12] LABS: DIRECT BILIRUBIN 0.2 mg/dL (0.0-0.3)
[2017-11-08 23:13] LABS: LIPASE 56 U/L (1.0-51.0)
[2017-11-09 02:11] LABS: SALICYLATE < 5.0 MG/DL (15-30); URIC ACID 8.9 mg/dL (3.1-9.2)
[2017-11-09 02:14] VITALS: BP 104/69
[2017-11-09 05:24] LABS: HEMATOCRIT 25.7 % (38.0-50.0); MCH 24.2 PG (29.0-34.0); MCHC 30.7 G/DL (30.0-36.0); MCV 78.6 FL (86-99); PLATELET COUNT 193 K/uL (156-360); RBC DIS.WIDTH-CV 18.1 % (11.8-14.6); RBC DIS.WIDTH-SD 51.7 % (39-53); RED BLOOD COUNT 3.27 M/uL (4.00-5.50); WHITE BLOOD COUNT 7.3 K/uL (4.1-10.2)
[2017-11-09 05:44] LABS: TROP-I INTERPRETATION NEGATIVE; TROPONIN-I 0.05 ng/mL (0.0-0.30)
[2017-11-09 06:05] LABS: ANION GAP 12 MEQ/L (2-14); CHLORIDE 107 MEQ/L (99-109); GFR ESTIMATE (CALCULATED) 29 mL/min/ (58.99-99999); GLUCOSE 151 mg/dL (70-99); POTASSIUM 4.8 MEQ/L (3.7-5.4); SAMPLE HEMOLYSIS CHECK 0; SAMPLE ICTERIC CHECK 0; SAMPLE LIPEMIA CHECK 0; SODIUM 134 MEQ/L (136-147); UREA NITROGEN (BUN) 48 mg/dL (9-23)
[2017-11-09 07:39] LABS: POINT-OF-CARE METER ID UU13113781
[2017-11-09 08:00] VITALS: BP 111/57
[2017-11-09 10:32] LABS: TROP-I INTERPRETATION NEGATIVE; TROPONIN-I 0.04 ng/mL (0.0-0.30)
[2017-11-09 11:39] LABS: POINT-OF-CARE METER ID UU13113781
[2017-11-09 12:17] VITALS: BP 118/56
[2017-11-09 15:41] VITALS: BP 125/57
[2017-11-09 16:10] LABS: AMPHETAMINES QUANT VALUE 0 NG/ML; BARBITUATES QUANT VALUE 0 NG/ML; BENZODIAZEPINES QUANT VALUE 0 NG/ML; BENZODIAZEPINES, URINE SCREEN Negative (200 ng/mL); MARIJUANA QUANT VALUE 0 NG/ML; PHENCYCLIDINE QUANT VALUE 0 NG/ML
[2017-11-09 16:56] LABS: POINT-OF-CARE METER ID UU13113781
[2017-11-09 19:25] VITALS: BP 94/54
[2017-11-09 21:18] LABS: POINT-OF-CARE METER ID UU13113781
[2017-11-10 00:15] VITALS: BP 104/64
[2017-11-10 04:00] VITALS: BP 106/65
[2017-11-10 05:59] LABS: EOSINOPHIL (%) 5.5 % (0-5); EOSINOPHIL COUNT 0.3 K/uL (0-0.3); IMMATURE GRANULOCYTE (%) 0.4 % (0.0-0.7); INSTRUMENT ABS NEUTROPHIL CT 3.3 K/uL; MCH 24.6 PG (29.0-34.0); MCHC 31.3 G/DL (30.0-36.0); MCV 78.7 FL (86-99); MEAN PLAT.VOLUME 10.4 uM^3 (9.0-12.4); MONOCYTE COUNT 0.6 K/uL (0-0.8); NEUTROPHIL COUNT 3.3 K/uL (1.8-6.4); PLATELET COUNT 162 K/uL (156-360); RBC DIS.WIDTH-CV 18.1 % (11.8-14.6); RBC DIS.WIDTH-SD 52.2 % (39-53); RED BLOOD COUNT 3.05 M/uL (4.00-5.50); WHITE BLOOD COUNT 5.2 K/uL (4.1-10.2)
[2017-11-10 06:27] LABS: ALKALINE PHOSPHATASE 72 IU/L (3-129); ANION GAP 8 MEQ/L (2-14); CHLORIDE 114 MEQ/L (99-109); GFR ESTIMATE (CALCULATED) 43 mL/min/ (58.99-99999); GLUCOSE 184 mg/dL (70-99); POTASSIUM 4.8 MEQ/L (3.7-5.4); SAMPLE HEMOLYSIS CHECK 0; SAMPLE ICTERIC CHECK 0; SAMPLE LIPEMIA CHECK 0; SODIUM 137 MEQ/L (136-147); TOTAL BILIRUBIN 0.3 MG/DL (0.0-1.0); UREA NITROGEN (BUN) 36 mg/dL (9-23)
[2017-11-10 08:10] VITALS: BP 140/70
[2017-11-10 08:15] LABS: POINT-OF-CARE METER ID UU14174216; POINT-OF-CARE USER ID NUTSLF44
[2017-11-10 11:43] LABS: POINT-OF-CARE METER ID UU14174216; POINT-OF-CARE USER ID NUTSLF44
[2017-11-10 12:15] VITALS: BP 146/86
[2017-11-10 15:49] VITALS: BP 142/70
[2017-11-10 17:47] LABS: POINT-OF-CARE METER ID UU14174216; POINT-OF-CARE USER ID NUTSLF44
[2017-11-10 19:23] VITALS: BP 132/66
[2017-11-10 22:10] LABS: POINT-OF-CARE METER ID UU14314088
[2017-11-11] VITALS: BP 126/75
[2017-11-11 04:13] VITALS: BP 135/76
[2017-11-11 05:35] LABS: EOSINOPHIL COUNT 0.3 K/uL (0-0.3); HEMATOCRIT 24.2 % (38.0-50.0); IMMATURE GRANULOCYTE (%) 0.4 % (0.0-0.7); INSTRUMENT ABS NEUTROPHIL CT 3.1 K/uL; LYMPHOCYTE COUNT 0.9 K/uL (1.0-2.8); MCH 24.8 PG (29.0-34.0); MCHC 31.4 G/DL (30.0-36.0); MCV 78.8 FL (86-99); MEAN PLAT.VOLUME 10.4 uM^3 (9.0-12.4); MONOCYTE (%) 13.9 % (3-12); MONOCYTE COUNT 0.7 K/uL (0-0.8); NEUTROPHIL (%) 62.2 % (45-76); NEUTROPHIL COUNT 3.1 K/uL (1.8-6.4); PLATELET COUNT 166 K/uL (156-360); RBC DIS.WIDTH-CV 18.1 % (11.8-14.6); RBC DIS.WIDTH-SD 51.8 % (39-53); RED BLOOD COUNT 3.07 M/uL (4.00-5.50)
[2017-11-11 06:36] LABS: ANION GAP 8 MEQ/L (2-14); CHLORIDE 112 MEQ/L (99-109); GFR ESTIMATE (CALCULATED) 46 mL/min/ (58.99-99999); GLUCOSE 225 mg/dL (70-99); IRON 12 MCG/DL (35-150); POTASSIUM 4.7 MEQ/L (3.7-5.4); SAMPLE HEMOLYSIS CHECK 0; SAMPLE ICTERIC CHECK 0; SAMPLE LIPEMIA CHECK 0; SODIUM 137 MEQ/L (136-147); UREA NITROGEN (BUN) 27 mg/dL (9-23)
[2017-11-11 07:42] LABS: POINT-OF-CARE METER ID UU14174216
[2017-11-11 08:40] VITALS: BP 131/72
[2017-11-11 11:18] LABS: POINT-OF-CARE METER ID UU13113781
[2017-11-11 12:02] VITALS: BP 140/76
[2017-11-11] MEDS ORDERED: FERROUS SULFAT325 MG PO (12:12)
[2017-11-11] MEDS ORDERED: PANTOPRAZOLE SO40 MG PO (12:14)
[2017-11-11 16:22] LABS: POINT-OF-CARE METER ID UU14174216
[2017-11-11 17:50] VITALS: BP 144/80
[2017-11-11 19:53] VITALS: BP 149/67
[2017-11-11 21:35] LABS: POINT-OF-CARE METER ID UU13113781
[2017-11-12 00:21] VITALS: BP 139/76
[2017-11-12 04:15] VITALS: BP 127/85
[2017-11-12 04:55] LABS: HEMATOCRIT 25.3 % (38.0-50.0); MCH 25.1 PG (29.0-34.0); MCHC 32.4 G/DL (30.0-36.0); MCV 77.4 FL (86-99); MEAN PLAT.VOLUME 9.8 uM^3 (9.0-12.4); PLATELET COUNT 171 K/uL (156-360); RBC DIS.WIDTH-CV 17.9 % (11.8-14.6); RED BLOOD COUNT 3.27 M/uL (4.00-5.50); WHITE BLOOD COUNT 5.1 K/uL (4.1-10.2)
[2017-11-12 05:16] LABS: CHLORIDE 112 mEq/L (99-109); POTASSIUM 4.4 mEq/L (3.7-5.4); SODIUM 138 mEq/L (136-147)
[2017-11-12 05:18] LABS: GLUCOSE 258 mg/dL (70-99)
[2017-11-12 05:19] LABS: ANION GAP 10 MEQ/L (2-14)
[2017-11-12 05:22] LABS: GFR ESTIMATE (CALCULATED) 59 mL/min/ (58.99-99999)
[2017-11-12 05:23] LABS: UREA NITROGEN (BUN) 23 mg/dL (9-23)
[2017-11-12 07:25] VITALS: BP 137/72
[2017-11-12 08:21] LABS: POINT-OF-CARE METER ID UU14174216; POINT-OF-CARE USER ID NUTSLF44
[2017-11-12 11:18] VITALS: BP 148/81
[2017-11-12 11:52] LABS: POINT-OF-CARE METER ID UU14174216
[2017-11-12 16:39] LABS: POINT-OF-CARE METER ID UU14174216; POINT-OF-CARE USER ID NUTSLF44
[2017-11-12 17:00] VITALS: BP 145/79
[2017-11-12 17:04] LABS: ADD MIUA? YES; BILIRUBIN NEGATIVE; BLOOD SMALL; COLOR STRAW ((YELLOW)); GLUCOSE (STRIP) NEGATIVE; KETONES NEGATIVE; LEUKOCYTES NEGATIVE; NITRITE NEGATIVE; PROTEIN (STRIP) 100; SPECIFIC GRAVITY 1.008 (1.000-1.030); UROBILINOGEN 0.2 MG/DL (0.2-1.0)
[2017-11-12 17:17] LABS: BACTERIA NONE SEEN /HPF; EPITHELIAL CELLS NONE SEEN /HPF; MUCUS NONE SEEN /LPF; RED BLOOD CELLS 0-5 /HPF (0-5); WHITE BLOOD CELLS 0-5 /HPF (0-5)
[2017-11-12 19:21] VITALS: BP 133/62
[2017-11-12 21:06] LABS: POINT-OF-CARE METER ID UU14314088
[2017-11-13] VITALS (7 sets, daily range): BP systolic 127–146; BP diastolic 60–89
[2017-11-13 05:36] LABS: HEMATOCRIT 26.9 % (38.0-50.0); MCH 24.5 PG (29.0-34.0); MCHC 31.6 G/DL (30.0-36.0); MCV 77.5 FL (86-99); MEAN PLAT.VOLUME 9.4 uM^3 (9.0-12.4); PLATELET COUNT 176 K/uL (156-360); RBC DIS.WIDTH-CV 18.4 % (11.8-14.6); RBC DIS.WIDTH-SD 50.5 % (39-53); RED BLOOD COUNT 3.47 M/uL (4.00-5.50); WHITE BLOOD COUNT 7.1 K/uL (4.1-10.2)
[2017-11-13 06:25] LABS: ANION GAP 9 MEQ/L (2-14); CHLORIDE 110 MEQ/L (99-109); GFR ESTIMATE (CALCULATED) 59 mL/min/ (58.99-99999); GLUCOSE 119 mg/dL (70-99); POTASSIUM 3.9 MEQ/L (3.7-5.4); SAMPLE HEMOLYSIS CHECK 0; SAMPLE ICTERIC CHECK 0; SAMPLE LIPEMIA CHECK 0; SODIUM 140 MEQ/L (136-147); UREA NITROGEN (BUN) 18 mg/dL (9-23)
[2017-11-13 08:22] LABS: POINT-OF-CARE METER ID UU14314088
[2017-11-13 11:59] LABS: POINT-OF-CARE METER ID UU14314088
[2017-11-13 16:19] LABS: POINT-OF-CARE METER ID UU14314088
[2017-11-13 21:07] LABS: POINT-OF-CARE METER ID UU14174216
[2017-11-14 02:58] LABS: POINT-OF-CARE METER ID UU13113717
[2017-11-14 03:33] VITALS: BP 133/63
[2017-11-14 06:03] LABS: MCH 24.6 PG (29.0-34.0); MCHC 31.5 G/DL (30.0-36.0); MCV 78.3 FL (86-99); MEAN PLAT.VOLUME 10.1 uM^3 (9.0-12.4); PLATELET COUNT 175 K/uL (156-360); RBC DIS.WIDTH-CV 18.5 % (11.8-14.6); RBC DIS.WIDTH-SD 51.9 % (39-53); RED BLOOD COUNT 3.45 M/uL (4.00-5.50); WHITE BLOOD COUNT 6.1 K/uL (4.1-10.2)
[2017-11-14 06:32] LABS: ANION GAP 7 MEQ/L (2-14); CHLORIDE 107 MEQ/L (99-109); GFR ESTIMATE (CALCULATED) 54 mL/min/ (58.99-99999); POTASSIUM 4.1 MEQ/L (3.7-5.4); SAMPLE HEMOLYSIS CHECK 0; SAMPLE ICTERIC CHECK 0; SAMPLE LIPEMIA CHECK 0; SODIUM 137 MEQ/L (136-147); UREA NITROGEN (BUN) 19 mg/dL (9-23)
[2017-11-14 06:37] LABS: GLUCOSE 268 mg/dL (70-99)
[2017-11-14 07:03] LABS: POINT-OF-CARE METER ID UU14302473
[2017-11-14 07:53] VITALS: BP 114/76
[2017-11-14 11:23] LABS: POINT-OF-CARE METER ID UU14302473
[2017-11-15 13:53] LABS: HCV RNA (IU/mL) <15 IU/mL (<15)
[2017-11-18 10:49] LABS: HCV RNA (LOG IU/mL) <1.18 (<1.18)
== END 2017-11-14 12:39 | disposition home health service (06) | DRG 683 ==
LOC: EME → EDBD 21:07 → EME 21:07 → 4EAST 11-09 00:24 → EDOF 11-09 00:24 → ENRESERV 11-09 00:29 → 4EAST 11-09 01:40 → ENRESERV 11-13 19:45 → 5SOUTH 11-13 21:04
PROVIDERS: Emergency Medicine; Hospitalist; Internal Medicine; Internal Medicine Gastroenterology; Student in an Organized Health Care Education/Training Program
DX: N17.9 Acute kidney failure, unspecified (principal); N18.3 Chronic kidney disease, stage 3 (moderate); E11.22 Type 2 diabetes mellitus with diabetic chronic kidney disease; E11.21 Type 2 diabetes mellitus with diabetic nephropathy; D63.1 Anemia in chronic kidney disease; E87.2 Acidosis; E87.5 Hyperkalemia; E78.5 Hyperlipidemia, unspecified; F17.210 Nicotine dependence, cigarettes, uncomplicated; E11.51 Type 2 diabetes mellitus with diabetic peripheral angiopathy without gangrene; I25.10 Atherosclerotic heart disease of native coronary artery without angina pectoris; I13.0 Hypertensive heart and chronic kidney disease with heart failure and stage 1 through stage 4 chronic kidney disease, or unspecified chronic kidney disease; I25.5 Ischemic cardiomyopathy; J44.9 Chronic obstructive pulmonary disease, unspecified; I50.42 Chronic combined systolic (congestive) and diastolic (congestive) heart failure; I08.3 Combined rheumatic disorders of mitral, aortic and tricuspid valves; I27.20 Pulmonary hypertension, unspecified; I25.2 Old myocardial infarction; I48.2 Chronic atrial fibrillation; K21.9 Gastro-esophageal reflux disease without esophagitis; K22.4 Dyskinesia of esophagus; D50.9 Iron deficiency anemia, unspecified; F32.9 Major depressive disorder, single episode, unspecified; G43.909 Migraine, unspecified, not intractable, without status migrainosus; I69.398 Other sequelae of cerebral infarction; H53.47 Heteronymous bilateral field defects; I95.9 Hypotension, unspecified; G89.4 Chronic pain syndrome; Z91.19 Patient's noncompliance with other medical treatment and regimen; R29.6 Repeated falls; T20.21 Burn of second degree of ear [any part, except ear drum]; M79.7 Fibromyalgia; Z98.61 Coronary angioplasty status; F41.9 Anxiety disorder, unspecified; B18.2 Chronic viral hepatitis C; I65.23 Occlusion and stenosis of bilateral carotid arteries; K59.00 Constipation, unspecified; Z86.74 Personal history of sudden cardiac arrest; M25.78 Osteophyte, vertebrae; M79.2 Neuralgia and neuritis, unspecified
CPT/HCPCS: 71020; 74220; 74230; 80048; 80053; 80076; 80306 90; 81003; 82272; 82948; 83540; 83605; 83690; 84466; 84484; 84550; 85025; 85027; 87040; 87086; 87522 90; 92610 GN; 92611 GN; 93005; 99281; 99284; G0480; J1815; J7030

== ENCOUNTER 2017-11-17 02:46 | Emergency (ER) | payer OTHER ==
[~2017-11-17] VITALS: Ht 177.8 cm; Wt 77.0 kg
[~2017-11-17 02:46] MED LIST changes: +FERROUS SULFAT325 MG PO
[2017-11-17 04:04] LABS: EOSINOPHIL (%) 5.3 % (0-5); EOSINOPHIL COUNT 0.3 K/uL (0-0.3); HEMATOCRIT 24.4 % (38.0-50.0); IMMATURE GRANULOCYTE (%) 0.3 % (0.0-0.7); INSTRUMENT ABS NEUTROPHIL CT 4.4 K/uL; LYMPHOCYTE COUNT 0.9 K/uL (1.0-2.8); MCH 25.1 PG (29.0-34.0); MCHC 33.2 G/DL (30.0-36.0); MCV 75.5 FL (86-99); MEAN PLAT.VOLUME 10.2 uM^3 (9.0-12.4); MONOCYTE COUNT 0.7 K/uL (0-0.8); NEUTROPHIL (%) 68.4 % (45-76); NEUTROPHIL COUNT 4.4 K/uL (1.8-6.4); PLATELET COUNT 190 K/uL (156-360); RBC DIS.WIDTH-CV 18.3 % (11.8-14.6); RBC DIS.WIDTH-SD 49.9 % (39-53); RED BLOOD COUNT 3.23 M/uL (4.00-5.50); WHITE BLOOD COUNT 6.5 K/uL (4.1-10.2)
[2017-11-17 04:13] LABS: CHLORIDE 106 mEq/L (99-109); POTASSIUM 4.3 mEq/L (3.7-5.4); SODIUM 133 mEq/L (136-147)
[2017-11-17 04:16] LABS: ANION GAP 9 MEQ/L (2-14); GLUCOSE 129 mg/dL (70-99)
[2017-11-17 04:17] LABS: TOTAL BILIRUBIN 0.5 mg/dL (0.0-1.0)
[2017-11-17 04:18] LABS: ALKALINE PHOSPHATASE 104 IU/L (3-129)
[2017-11-17 04:19] LABS: GFR ESTIMATE (CALCULATED) 34 mL/min/ (58.99-99999)
[2017-11-17 04:22] LABS: UREA NITROGEN (BUN) 39 mg/dL (9-23)
[2017-11-17 04:25] LABS: TROP-I INTERPRETATION NEGATIVE; TROPONIN-I 0.05 ng/mL (0.0-0.30)
[2017-11-17 05:44] VITALS: BP 105/80
== END 2017-11-17 05:45 | disposition home or self-care (01) ==
LOC: EME → EDBD 02:46 → EME 05:45
PROVIDERS: Emergency Medicine Emergency Medical Services
DX: R55 Syncope and collapse (principal); F41.9 Anxiety disorder, unspecified; R53.1 Weakness; E86.0 Dehydration; J44.9 Chronic obstructive pulmonary disease, unspecified; I12.9 Hypertensive chronic kidney disease with stage 1 through stage 4 chronic kidney disease, or unspecified chronic kidney disease; N18.6 End stage renal disease; K21.9 Gastro-esophageal reflux disease without esophagitis; I69.398 Other sequelae of cerebral infarction; H54.40 Blindness, one eye, unspecified eye; E78.00 Pure hypercholesterolemia, unspecified; I25.2 Old myocardial infarction; F32.9 Major depressive disorder, single episode, unspecified; F17.200 Nicotine dependence, unspecified, uncomplicated; W19.XXXA Unspecified fall, initial encounter; Z95.5 Presence of coronary angioplasty implant and graft; Z95.810 Presence of automatic (implantable) cardiac defibrillator; Z86.74 Personal history of sudden cardiac arrest; Z90.89 Acquired absence of other organs; Z85.9 Personal history of malignant neoplasm, unspecified; Z88.6 Allergy status to analgesic agent; Z88.8 Allergy status to other drugs, medicaments and biological substances
CPT/HCPCS: 80053; 84484; 85025; 93005; 99281; 99285; J2060; J7050

== ENCOUNTER 2017-11-22 15:03 | Emergency (ER) | payer OTHER ==
[~2017-11-22] VITALS: Ht 177.8 cm; Wt 73.6 kg
[2017-11-22 17:51] LABS: BASOPHIL (%) 0.3 % (0-1); EOSINOPHIL (%) 1.5 % (0-5); EOSINOPHIL COUNT 0.2 K/uL (0-0.3); HEMATOCRIT 31.1 % (38.0-50.0); HEMOGLOBIN 9.7 G/DL (12.5-16.6); IMMATURE GRANULOCYTE (%) 0.4 % (0.0-0.7); LYMPHOCYTE (%) 6.8 % (15-42); LYMPHOCYTE COUNT 0.7 K/uL (1.0-2.8); MCH 24.4 PG (29.0-34.0); MCHC 31.2 G/DL (30.0-36.0); MCV 78.1 FL (86-99); MONOCYTE (%) 7.4 % (3-12); MONOCYTE COUNT 0.8 K/uL (0-0.8); NEUTROPHIL (%) 83.6 % (45-76); NEUTROPHIL COUNT 8.7 K/uL (1.8-6.4); RBC DIS.WIDTH-SD 51.7 % (39-53); WHITE BLOOD COUNT 10.4 K/uL (4.1-10.2)
[2017-11-22 17:54] LABS: INTER. NORMALIZED RATIO 1.4
[2017-11-22 17:56] LABS: PTT 48.3 SEC (25-37)
[2017-11-22 17:57] LABS: PLATELET COUNT 252 K/uL (156-360); RED BLOOD COUNT 3.98 M/uL (4.00-5.50)
[2017-11-22 17:59] LABS: ALBUMIN 3.5 g/dL (3.2-4.8); CHLORIDE 106 mEq/L (99-109); POTASSIUM 4.6 mEq/L (3.7-5.4); SODIUM 135 mEq/L (136-147)
[2017-11-22 18:02] LABS: GLUCOSE 291 mg/dL (70-99); TOTAL PROTEIN 6.7 g/dL (6.4-8.3)
[2017-11-22 18:04] LABS: TOTAL BILIRUBIN 0.5 mg/dL (0.0-1.0)
[2017-11-22 18:05] LABS: ALKALINE PHOSPHATASE 120 IU/L (3-129); CREATININE 2.1 mg/dL (0.6-1.3); GFR ESTIMATE (CALCULATED) 34 mL/min/ (58.99-99999)
[2017-11-22 18:06] LABS: UREA NITROGEN (BUN) 37 mg/dL (9-23)
[2017-11-22 18:07] LABS: AST (GOT) 20 IU/L (2-34)
[2017-11-22 18:08] LABS: ALT (GPT) 14 IU/L (3-49)
[2017-11-22 18:11] LABS: SERUM ETHYL ALCOHOL < 10 mg/dL
[2017-11-22 18:15] LABS: TROP-I INTERPRETATION NEGATIVE; TROPONIN-I 0.05 ng/mL (0.0-0.30)
[2017-11-23 03:02] LABS: APPEARANCE CLEAR ((CLEAR)); BILIRUBIN NEGATIVE; BLOOD SMALL; COLOR YELLOW ((YELLOW)); GLUCOSE (STRIP) >=500; KETONES NEGATIVE; LEUKOCYTES NEGATIVE; NITRITE NEGATIVE; PROTEIN (STRIP) 100; UROBILINOGEN 0.2 MG/DL (0.2-1.0)
[2017-11-23 03:08] LABS: BACTERIA NONE SEEN /HPF; EPITHELIAL CELLS NONE SEEN /HPF; MUCUS TRACE /LPF; UCUL ADDED? NO; WHITE BLOOD CELLS 0-5 /HPF (0-5)
[2017-11-23 03:26] VITALS: BP 121/86
== END 2017-11-23 03:47 | disposition home or self-care (01) ==
LOC: EME 15:03
PROVIDERS: Emergency Medicine
DX: E86.0 Dehydration (principal); T20.012D Burn of unspecified degree of left ear [any part, except ear drum], subsequent encounter; R55 Syncope and collapse; S00.01XA Abrasion of scalp, initial encounter; W19.XXXA Unspecified fall, initial encounter; J44.9 Chronic obstructive pulmonary disease, unspecified; K21.9 Gastro-esophageal reflux disease without esophagitis; M79.7 Fibromyalgia; I25.10 Atherosclerotic heart disease of native coronary artery without angina pectoris; I25.2 Old myocardial infarction; I12.9 Hypertensive chronic kidney disease with stage 1 through stage 4 chronic kidney disease, or unspecified chronic kidney disease; N18.9 Chronic kidney disease, unspecified; H54.61 Unqualified visual loss, right eye, normal vision left eye; F41.9 Anxiety disorder, unspecified; F32.9 Major depressive disorder, single episode, unspecified; E78.5 Hyperlipidemia, unspecified; R56.9 Unspecified convulsions; Z86.73 Personal history of transient ischemic attack (TIA), and cerebral infarction without residual deficits; Z79.82 Long term (current) use of aspirin; Z72.0 Tobacco use; Z88.8 Allergy status to other drugs, medicaments and biological substances
CPT/HCPCS: 70450; 71010; 80053; 81003; 82948; 84484; 85025; 85610; 85730; 93005; 99281; 99285; G0480; J7030

== ENCOUNTER 2017-12-09 14:31 | Emergency (ER) | payer OTHER ==
[~2017-12-09] VITALS: Ht 177.8 cm; Wt 74.4 kg
[2017-12-09 16:10] LABS: HEMATOCRIT 27.3 % (38.0-50.0); HEMOGLOBIN 8.9 G/DL (12.5-16.6); MCH 24.2 PG (29.0-34.0); MCHC 32.6 G/DL (30.0-36.0); MCV 74.2 FL (86-99); RBC DIS.WIDTH-CV 17.2 % (11.8-14.6); RBC DIS.WIDTH-SD 46.4 % (39-53); RED BLOOD COUNT 3.68 M/uL (4.00-5.50); WHITE BLOOD COUNT 3.4 K/uL (4.1-10.2)
[2017-12-09 16:14] LABS: CHLORIDE 105 mEq/L (99-109); POTASSIUM 3.5 mEq/L (3.7-5.4); SODIUM 133 mEq/L (136-147)
[2017-12-09 16:15] LABS: GLUCOSE 249 mg/dL (70-99)
[2017-12-09 16:19] LABS: CREATININE 1.8 mg/dL (0.6-1.3); GFR ESTIMATE (CALCULATED) 40 mL/min/ (58.99-99999)
[2017-12-09 16:20] LABS: UREA NITROGEN (BUN) 49 mg/dL (9-23)
[2017-12-09 16:46] LABS: PLAT.SUFFICIENCY ADEQUATE; PLATELET CLUMPS PRESENT - PLATELET COUNT APPEARS ADQ.; PLATELET COUNT UNABLE TO REPORT K/uL (156-360)
[2017-12-09 20:45] LABS: CHLORIDE 110 mEq/L (99-109); SODIUM 133 mEq/L (136-147)
[2017-12-09 20:47] LABS: GLUCOSE 196 mg/dL (70-99)
[2017-12-09 20:49] LABS: TROP-I INTERPRETATION NEGATIVE; TROPONIN-I 0.08 ng/mL (0.0-0.30)
[2017-12-09 20:51] LABS: CREATININE 1.7 mg/dL (0.6-1.3); GFR ESTIMATE (CALCULATED) 43 mL/min/ (58.99-99999)
[2017-12-09 20:52] LABS: UREA NITROGEN (BUN) 46 mg/dL (9-23)
[2017-12-09 20:58] LABS: TROP-I INTERPRETATION NEGATIVE; TROPONIN-I 0.07 ng/mL (0.0-0.30)
[2017-12-09 21:14] LABS: POTASSIUM 4.8 mEq/L (3.7-5.4)
[2017-12-09 21:32] VITALS: BP 126/81
== END 2017-12-09 21:47 | disposition home or self-care (01) ==
LOC: EME 14:31
PROVIDERS: Emergency Medicine Emergency Medical Services
DX: J06.9 Acute upper respiratory infection, unspecified (principal); E86.0 Dehydration; E11.65 Type 2 diabetes mellitus with hyperglycemia; R07.9 Chest pain, unspecified; I12.0 Hypertensive chronic kidney disease with stage 5 chronic kidney disease or end stage renal disease; E11.22 Type 2 diabetes mellitus with diabetic chronic kidney disease; N18.6 End stage renal disease; F17.200 Nicotine dependence, unspecified, uncomplicated; E78.5 Hyperlipidemia, unspecified; I25.2 Old myocardial infarction; J44.9 Chronic obstructive pulmonary disease, unspecified; K21.9 Gastro-esophageal reflux disease without esophagitis; Z86.73 Personal history of transient ischemic attack (TIA), and cerebral infarction without residual deficits; Z95.5 Presence of coronary angioplasty implant and graft; Z86.74 Personal history of sudden cardiac arrest; H54.61 Unqualified visual loss, right eye, normal vision left eye; M79.7 Fibromyalgia; Z88.8 Allergy status to other drugs, medicaments and biological substances
CPT/HCPCS: 71046; 80048; 80048 91; 82010; 84484; 85027; 93005; 94640; 99281; 99284; J3010; J7040; J7644

== ENCOUNTER 2017-12-16 12:39 | Observation (INO) | payer OTHER ==
[~2017-12-16] VITALS: Ht 177.8 cm; Wt 77.3 kg
[2017-12-16 13:19] LABS: BASOPHIL (%) 0.3 % (0-1); EOSINOPHIL COUNT 0.2 K/uL (0-0.3); HEMATOCRIT 28.2 % (38.0-50.0); HEMOGLOBIN 9.1 G/DL (12.5-16.6); IMMATURE GRANULOCYTE (%) 0.4 % (0.0-0.7); LYMPHOCYTE (%) 19.9 % (15-42); LYMPHOCYTE COUNT 1.4 K/uL (1.0-2.8); MCH 24.1 PG (29.0-34.0); MCHC 32.3 G/DL (30.0-36.0); MCV 74.6 FL (86-99); MONOCYTE (%) 9.4 % (3-12); MONOCYTE COUNT 0.7 K/uL (0-0.8); NEUTROPHIL COUNT 4.6 K/uL (1.8-6.4); PLATELET COUNT 285 K/uL (156-360); RBC DIS.WIDTH-CV 17.3 % (11.8-14.6); RBC DIS.WIDTH-SD 47.5 % (39-53); RED BLOOD COUNT 3.78 M/uL (4.00-5.50); WHITE BLOOD COUNT 6.9 K/uL (4.1-10.2)
[2017-12-16 13:20] LABS: INTER. NORMALIZED RATIO 1.4
[2017-12-16 13:22] LABS: CHLORIDE 110 mEq/L (99-109); POTASSIUM 3.9 mEq/L (3.7-5.4); SODIUM 133 mEq/L (136-147)
[2017-12-16 13:23] LABS: GLUCOSE 156 mg/dL (70-99); PTT 44.4 SEC (25-37)
[2017-12-16 13:27] LABS: CREATININE 1.6 mg/dL (0.6-1.3); GFR ESTIMATE (CALCULATED) 46 mL/min/ (58.99-99999)
[2017-12-16 13:28] LABS: UREA NITROGEN (BUN) 20 mg/dL (9-23)
[2017-12-16 13:33] LABS: TROP-I INTERPRETATION NEGATIVE; TROPONIN-I 0.04 ng/mL (0.0-0.30)
[2017-12-16 14:06] LABS: SERUM ETHYL ALCOHOL 34 mg/dL
[2017-12-16 15:14] LABS: LIPASE 73 U/L (1.0-51.0)
[2017-12-16 16:37] LABS: LACTATE DEHYDROGENASE 308 IU/L (20-246)
[2017-12-16 19:59] LABS: TROP-I INTERPRETATION NEGATIVE; TROPONIN-I 0.04 ng/mL (0.0-0.30)
[2017-12-16 20:26] VITALS: BP 131/71
[2017-12-17 02:38] LABS: TROP-I INTERPRETATION NEGATIVE; TROPONIN-I 0.04 ng/mL (0.0-0.30)
[2017-12-17 04:52] VITALS: BP 113/63
[2017-12-17 06:01] LABS: HEMATOCRIT 27.1 % (38.0-50.0); HEMOGLOBIN 8.4 G/DL (12.5-16.6); MCH 23.3 PG (29.0-34.0); MCV 75.1 FL (86-99); PLATELET COUNT 244 K/uL (156-360); RBC DIS.WIDTH-CV 17.3 % (11.8-14.6); RBC DIS.WIDTH-SD 47.8 % (39-53); RED BLOOD COUNT 3.61 M/uL (4.00-5.50); WHITE BLOOD COUNT 5.4 K/uL (4.1-10.2)
[2017-12-17 06:42] LABS: CHLORIDE 113 MEQ/L (99-109); CREATININE 1.5 MG/DL (0.6-1.3); GFR ESTIMATE (CALCULATED) 50 mL/min/ (58.99-99999); GLUCOSE 125 mg/dL (70-99); POTASSIUM 4.3 MEQ/L (3.7-5.4); UREA NITROGEN (BUN) 21 mg/dL (9-23)
[2017-12-17 06:50] LABS: SODIUM 143 MEQ/L (136-147)
[2017-12-17 07:31] VITALS: BP 134/79
[2017-12-17 11:28] VITALS: BP 149/78
[2017-12-17 15:32] VITALS: BP 116/61
== END 2017-12-17 17:58 | disposition home or self-care (01) ==
LOC: EME 12:39 → 5WEST 14:08 → EDOF 14:08 → ENRESERV 14:10 → EDOF 14:29 → ENRESERV 18:37 → 5WEST 20:21
PROVIDERS: Emergency Medicine; Physician Assistant Medical
DX: R07.9 Chest pain, unspecified (principal); E86.0 Dehydration; I95.9 Hypotension, unspecified; I13.2 Hypertensive heart and chronic kidney disease with heart failure and with stage 5 chronic kidney disease, or end stage renal disease; I50.42 Chronic combined systolic (congestive) and diastolic (congestive) heart failure; N18.3 Chronic kidney disease, stage 3 (moderate); K21.9 Gastro-esophageal reflux disease without esophagitis; I48.2 Chronic atrial fibrillation; I65.23 Occlusion and stenosis of bilateral carotid arteries; I25.2 Old myocardial infarction; I42.9 Cardiomyopathy, unspecified; I70.219 Atherosclerosis of native arteries of extremities with intermittent claudication, unspecified extremity; D63.1 Anemia in chronic kidney disease; E11.22 Type 2 diabetes mellitus with diabetic chronic kidney disease; E11.21 Type 2 diabetes mellitus with diabetic nephropathy; I25.10 Atherosclerotic heart disease of native coronary artery without angina pectoris; E78.5 Hyperlipidemia, unspecified; J44.9 Chronic obstructive pulmonary disease, unspecified; I27.20 Pulmonary hypertension, unspecified; G89.29 Other chronic pain; N25.89 Other disorders resulting from impaired renal tubular function; I08.3 Combined rheumatic disorders of mitral, aortic and tricuspid valves; F17.200 Nicotine dependence, unspecified, uncomplicated; Z88.6 Allergy status to analgesic agent; Z88.1 Allergy status to other antibiotic agents; Z88.8 Allergy status to other drugs, medicaments and biological substances; Z79.84 Long term (current) use of oral hypoglycemic drugs; Z79.82 Long term (current) use of aspirin
CPT/HCPCS: 70450; 71045; 78582; 80048; 82010; 83615; 83690; 84484; 85025; 85027; 85379; 85610; 85730; 87502; 93005; 93306; A9539; A9540; G0378; G0480; J2270; J7030; J7120; S0028

== ENCOUNTER 2017-12-27 03:29 | Inpatient (IN) | payer OTHER ==
[~2017-12-27] VITALS: Ht 177.8 cm; Wt 76.2 kg
[2017-12-27 04:01] LABS: BASOPHIL (%) 0.5 % (0-1); EOSINOPHIL (%) 2.9 % (0-5); EOSINOPHIL COUNT 0.2 K/uL (0-0.3); HEMATOCRIT 27.4 % (38.0-50.0); HEMOGLOBIN 8.7 G/DL (12.5-16.6); IMMATURE GRANULOCYTE (%) 0.3 % (0.0-0.7); LYMPHOCYTE (%) 16.8 % (15-42); MCH 23.8 PG (29.0-34.0); MCHC 31.8 G/DL (30.0-36.0); MCV 75.1 FL (86-99); MONOCYTE (%) 13.7 % (3-12); MONOCYTE COUNT 0.8 K/uL (0-0.8); NEUTROPHIL (%) 65.8 % (45-76); PLATELET COUNT 235 K/uL (156-360); RBC DIS.WIDTH-CV 17.3 % (11.8-14.6); RBC DIS.WIDTH-SD 47.5 % (39-53); RED BLOOD COUNT 3.65 M/uL (4.00-5.50); WHITE BLOOD COUNT 6.1 K/uL (4.1-10.2)
[2017-12-27 04:11] LABS: ALBUMIN 3.3 g/dL (3.2-4.8); CHLORIDE 101 mEq/L (99-109); POTASSIUM 4.2 mEq/L (3.7-5.4); SODIUM 130 mEq/L (136-147)
[2017-12-27 04:14] LABS: GLUCOSE 120 mg/dL (70-99); TOTAL PROTEIN 6.1 g/dL (6.4-8.3)
[2017-12-27 04:15] LABS: TOTAL BILIRUBIN 0.3 mg/dL (0.0-1.0)
[2017-12-27 04:17] LABS: ALKALINE PHOSPHATASE 86 IU/L (3-129); CREATININE 1.4 mg/dL (0.6-1.3); GFR ESTIMATE (CALCULATED) 54 mL/min/ (58.99-99999); SERUM ETHYL ALCOHOL < 10 mg/dL
[2017-12-27 04:18] LABS: UREA NITROGEN (BUN) 27 mg/dL (9-23)
[2017-12-27 04:19] LABS: AST (GOT) 23 IU/L (2-34)
[2017-12-27 04:20] LABS: ALT (GPT) 18 IU/L (3-49)
[2017-12-27 04:22] LABS: TROP-I INTERPRETATION NEGATIVE; TROPONIN-I 0.07 ng/mL (0.0-0.30)
[2017-12-27 08:34] LABS: TROP-I INTERPRETATION NEGATIVE; TROPONIN-I 0.05 ng/mL (0.0-0.30)
[2017-12-27] MEDS ORDERED: NORVASC5 MG PO (09:12)
[2017-12-27] MEDS ORDERED: PROBIOTIC1 EAC1 PO (09:13)
[2017-12-27] MEDS ORDERED: CENTRUM SILVER1 EAC3 PO (09:15)
[2017-12-27] MEDS ORDERED: ASCORBIC ACID500 M3 PO (09:17)
[2017-12-27] MEDS ORDERED: TRESIBA FL200 UNIT/1 SC (09:17)
[2017-12-27] MEDS ORDERED: HUMALOG100 UNIT/2 SC (09:18)
[2017-12-27 11:00] VITALS: BP 122/60
[2017-12-27 11:30] VITALS: BP 130/68
[2017-12-27 12:44] LABS: TROP-I INTERPRETATION NEGATIVE; TROPONIN-I 0.06 ng/mL (0.0-0.30)
[2017-12-27 17:40] VITALS: BP 132/65
[2017-12-27 18:53] LABS: TROP-I INTERPRETATION NEGATIVE; TROPONIN-I 0.04 ng/mL (0.0-0.30)
[2017-12-27 21:00] VITALS: BP 136/80
[2017-12-28 06:33] LABS: HEMATOCRIT 25.4 % (38.0-50.0); MCH 23.4 PG (29.0-34.0); MCHC 31.5 G/DL (30.0-36.0); MCV 74.3 FL (86-99); PLATELET COUNT 237 K/uL (156-360); RBC DIS.WIDTH-CV 17.5 % (11.8-14.6); RBC DIS.WIDTH-SD 47.6 % (39-53); RED BLOOD COUNT 3.42 M/uL (4.00-5.50); WHITE BLOOD COUNT 5.3 K/uL (4.1-10.2)
[2017-12-28 06:51] LABS: CHLORIDE 113 MEQ/L (99-109); CREATININE 1.1 MG/DL (0.6-1.3); GFR ESTIMATE (CALCULATED) > 59 mL/min/ (58.99-99999); GLUCOSE 117 mg/dL (70-99); POTASSIUM 4.1 MEQ/L (3.7-5.4); UREA NITROGEN (BUN) 19 mg/dL (9-23)
[2017-12-28 07:00] LABS: SODIUM 138 MEQ/L (136-147)
[2017-12-28 07:08] VITALS: BP 135/68
[2017-12-28 12:08] VITALS: BP 121/71
[2017-12-28 15:49] VITALS: BP 118/63
[2017-12-28 19:00] VITALS: BP 130/71
[2017-12-29 00:33] VITALS: BP 136/81
[2017-12-29 07:13] LABS: BASOPHIL (%) 0.7 % (0-1); EOSINOPHIL (%) 4.7 % (0-5); EOSINOPHIL COUNT 0.2 K/uL (0-0.3); HEMATOCRIT 25.1 % (38.0-50.0); HEMOGLOBIN 7.8 G/DL (12.5-16.6); IMMATURE GRANULOCYTE (%) 0.2 % (0.0-0.7); LYMPHOCYTE (%) 18.5 % (15-42); LYMPHOCYTE COUNT 0.8 K/uL (1.0-2.8); MCH 23.4 PG (29.0-34.0); MCHC 31.1 G/DL (30.0-36.0); MCV 75.1 FL (86-99); MONOCYTE (%) 12.5 % (3-12); MONOCYTE COUNT 0.6 K/uL (0-0.8); NEUTROPHIL (%) 63.4 % (45-76); NEUTROPHIL COUNT 2.9 K/uL (1.8-6.4); PLATELET COUNT 193 K/uL (156-360); RBC DIS.WIDTH-CV 17.7 % (11.8-14.6); RBC DIS.WIDTH-SD 48.8 % (39-53); RED BLOOD COUNT 3.34 M/uL (4.00-5.50); WHITE BLOOD COUNT 4.5 K/uL (4.1-10.2)
[2017-12-29 07:45] LABS: CHLORIDE 111 MEQ/L (99-109); CREATININE 1.2 MG/DL (0.6-1.3); GFR ESTIMATE (CALCULATED) > 59 mL/min/ (58.99-99999); GLUCOSE 164 mg/dL (70-99); IRON 19 MCG/DL (35-150); POTASSIUM 4.4 MEQ/L (3.7-5.4); SODIUM 139 MEQ/L (136-147); TRANSFERRIN (TIBC) 228.6 mg/dL (215-380); TRANSFERRIN SATUR. 8 % (20-55); UREA NITROGEN (BUN) 19 mg/dL (9-23)
[2017-12-29 08:22] LABS: FOLIC ACID (FOLATE) > 22.0 NG/ML (5.0-22.0)
[2017-12-29 08:34] LABS: THYROTROPIN (TSH) 0.64 MIU/L (0.4-5.5)
[2017-12-29 11:47] VITALS: BP 135/81
[2017-12-29 16:06] VITALS: BP 126/67
[2017-12-29 20:25] VITALS: BP 141/78
[2017-12-30 00:35] VITALS: BP 132/86
[2017-12-30 04:24] VITALS: BP 165/84
[2017-12-30 08:27] VITALS: BP 155/92
[2017-12-30 11:41] VITALS: BP 131/68
[2017-12-30] MEDS ORDERED: LEVETIRACETAM500 MG PO (15:33)
== END 2017-12-30 16:55 | disposition home or self-care (01) | DRG 312 ==
LOC: EME → EDBD 03:29 → EDOF 09:33 → ENRESERV 09:41 → EDOF 10:01 → 5WEST 10:20
PROVIDERS: Emergency Medicine; Hospitalist; Internal Medicine
DX: R55 Syncope and collapse (principal); G40.89 Other seizures; I13.0 Hypertensive heart and chronic kidney disease with heart failure and stage 1 through stage 4 chronic kidney disease, or unspecified chronic kidney disease; N18.3 Chronic kidney disease, stage 3 (moderate); I25.10 Atherosclerotic heart disease of native coronary artery without angina pectoris; E78.5 Hyperlipidemia, unspecified; G89.29 Other chronic pain; I50.9 Heart failure, unspecified; K21.9 Gastro-esophageal reflux disease without esophagitis; M79.7 Fibromyalgia; F17.210 Nicotine dependence, cigarettes, uncomplicated; D50.9 Iron deficiency anemia, unspecified; E11.22 Type 2 diabetes mellitus with diabetic chronic kidney disease; E11.65 Type 2 diabetes mellitus with hyperglycemia; I48.0 Paroxysmal atrial fibrillation; I65.22 Occlusion and stenosis of left carotid artery; H54.61 Unqualified visual loss, right eye, normal vision left eye; R29.6 Repeated falls; F41.9 Anxiety disorder, unspecified; J44.9 Chronic obstructive pulmonary disease, unspecified; R53.1 Weakness; I69.398 Other sequelae of cerebral infarction; T20.31 Burn of third degree of ear [any part, except ear drum]; T28.4 Burns of other and unspecified internal organs; W29.2XXD Contact with other powered household machinery, subsequent encounter; Z88.5 Allergy status to narcotic agent; Z88.6 Allergy status to analgesic agent; Z91.19 Patient's noncompliance with other medical treatment and regimen; Z79.4 Long term (current) use of insulin; Z95.5 Presence of coronary angioplasty implant and graft; Z79.01 Long term (current) use of anticoagulants; Z79.02 Long term (current) use of antithrombotics/antiplatelets; Z79.82 Long term (current) use of aspirin; Z82.49 Family history of ischemic heart disease and other diseases of the circulatory system; Z83.3 Family history of diabetes mellitus
CPT/HCPCS: 70450; 71046; 73564; 80048; 80053; 82607; 82746; 82948; 83540; 84443; 84466; 84484; 85025; 85027; 93005; 95819; 97530 GO; 99281; 99284; G0378; G0480; G8978 GP CM; G8979 GP CL; G8987 CK; G8988 CI; J1815; J2405; J7030; J7040; J7050; Q0138

== ENCOUNTER 2018-01-04 22:44 | Emergency (ER) | payer OTHER ==
[~2018-01-04] VITALS: Ht 177.8 cm; Wt 78.5 kg
[~2018-01-04 22:44] MED LIST changes: +CENTRUM SILVER1 EAC3 PO; +HUMALOG100 UNIT/2 SC; +LEVETIRACETAM500 MG PO; +TRESIBA FL200 UNIT/1 SC
[2018-01-04 23:17] LABS: HEMATOCRIT 27.9 % (38.0-50.0); MCH 24.6 PG (29.0-34.0); MCHC 32.3 G/DL (30.0-36.0); MCV 76.2 FL (86-99); PLATELET COUNT 248 K/uL (156-360); RBC DIS.WIDTH-CV 20.1 % (11.8-14.6); RBC DIS.WIDTH-SD 51.3 % (39-53); RED BLOOD COUNT 3.66 M/uL (4.00-5.50); WHITE BLOOD COUNT 6.7 K/uL (4.1-10.2)
[2018-01-04 23:28] LABS: CHLORIDE 108 mEq/L (99-109); POTASSIUM 4.2 mEq/L (3.7-5.4); SODIUM 137 mEq/L (136-147)
[2018-01-04 23:30] LABS: GLUCOSE 157 mg/dL (70-99)
[2018-01-04 23:34] LABS: CREATININE 1.6 mg/dL (0.6-1.3); GFR ESTIMATE (CALCULATED) 46 mL/min/ (58.99-99999)
[2018-01-04 23:35] LABS: UREA NITROGEN (BUN) 17 mg/dL (9-23)
[2018-01-04 23:38] LABS: TROP-I INTERPRETATION NEGATIVE; TROPONIN-I 0.04 ng/mL (0.0-0.30)
[2018-01-04 23:44] LABS: CREATINE KINASE 53 IU/L (1-294); TOTAL CK 53 IU/L (1-294)
[2018-01-04 23:50] LABS: CK-MB 4.1 ng/mL (0.0-4.9); CKMB RELATIVE INDEX 7.7 (0.0-3.9)
[2018-01-05 01:22] LABS: CARBON DIOXIDE (BICARBONATE) 21.3 MEQ/L (20-31)
[2018-01-05 01:56] LABS: CHLORIDE 110 mEq/L (99-109); POTASSIUM 4.2 mEq/L (3.7-5.4); SODIUM 137 mEq/L (136-147)
[2018-01-05 01:57] LABS: GLUCOSE 154 mg/dL (70-99)
[2018-01-05 02:01] LABS: CREATININE 1.4 mg/dL (0.6-1.3); GFR ESTIMATE (CALCULATED) 54 mL/min/ (58.99-99999)
[2018-01-05 02:02] LABS: UREA NITROGEN (BUN) 19 mg/dL (9-23)
[2018-01-05] MEDS ORDERED: PROVENTIL HFA6.7 GM IH (03:02)
[2018-01-05 03:17] VITALS: BP 121/81
== END 2018-01-05 03:18 | disposition home or self-care (01) ==
LOC: EME 22:44
PROVIDERS: Emergency Medicine
DX: B34.9 Viral infection, unspecified (principal); I48.91 Unspecified atrial fibrillation; E86.0 Dehydration; I12.0 Hypertensive chronic kidney disease with stage 5 chronic kidney disease or end stage renal disease; N18.6 End stage renal disease; J44.9 Chronic obstructive pulmonary disease, unspecified; E78.5 Hyperlipidemia, unspecified; I69.398 Other sequelae of cerebral infarction; H54.40 Blindness, one eye, unspecified eye; K21.9 Gastro-esophageal reflux disease without esophagitis; M79.7 Fibromyalgia; I25.2 Old myocardial infarction; F17.200 Nicotine dependence, unspecified, uncomplicated; Z79.82 Long term (current) use of aspirin; Z79.4 Long term (current) use of insulin; Z98.61 Coronary angioplasty status; Z95.810 Presence of automatic (implantable) cardiac defibrillator; Z86.74 Personal history of sudden cardiac arrest; Z90.49 Acquired absence of other specified parts of digestive tract; Z88.6 Allergy status to analgesic agent; Z88.8 Allergy status to other drugs, medicaments and biological substances
CPT/HCPCS: 71046; 80048; 82550; 82553; 82803; 83605; 83880; 84484; 85027; 87040; 93005; 99281; 99284; J7030; J7050

== ENCOUNTER 2018-01-06 22:09 | Emergency (ER) | payer OTHER ==
[~2018-01-06] VITALS: Ht 177.8 cm; Wt 74.6 kg
[~2018-01-06 22:09] MED LIST changes: +PROVENTIL HFA6.7 GM IH
[2018-01-06 23:38] LABS: HEMATOCRIT 31.2 % (38.0-50.0); HEMOGLOBIN 9.7 G/DL (12.5-16.6); MCH 24.7 PG (29.0-34.0); MCHC 31.1 G/DL (30.0-36.0); MCV 79.6 FL (86-99); PLATELET COUNT 279 K/uL (156-360); RBC DIS.WIDTH-CV 21.8 % (11.8-14.6); RBC DIS.WIDTH-SD 57.5 % (39-53); RED BLOOD COUNT 3.92 M/uL (4.00-5.50); WHITE BLOOD COUNT 8.7 K/uL (4.1-10.2)
[2018-01-06 23:51] LABS: CHLORIDE 106 mEq/L (99-109); POTASSIUM 4.7 mEq/L (3.7-5.4); SODIUM 136 mEq/L (136-147)
[2018-01-06 23:52] LABS: GLUCOSE 127 mg/dL (70-99)
[2018-01-06 23:56] LABS: GFR ESTIMATE (CALCULATED) 38 mL/min/ (58.99-99999)
[2018-01-06 23:59] LABS: CREATININE 1.9 mg/dL (0.6-1.3); UREA NITROGEN (BUN) 29 mg/dL (9-23)
[2018-01-07 04:45] VITALS: BP 111/67
== END 2018-01-07 04:45 | disposition home or self-care (01) ==
LOC: EME 22:09 → CANRESERV 01-07 16:17 → ENRESERV 01-07 16:17
PROVIDERS: Emergency Medicine Emergency Medical Services
DX: F32.9 Major depressive disorder, single episode, unspecified (principal); R00.2 Palpitations; F41.9 Anxiety disorder, unspecified; R51 Headache; R11.2 Nausea with vomiting, unspecified; J44.9 Chronic obstructive pulmonary disease, unspecified; I12.0 Hypertensive chronic kidney disease with stage 5 chronic kidney disease or end stage renal disease; E11.22 Type 2 diabetes mellitus with diabetic chronic kidney disease; N18.6 End stage renal disease; I25.2 Old myocardial infarction; Z79.4 Long term (current) use of insulin; Z79.82 Long term (current) use of aspirin; Z79.01 Long term (current) use of anticoagulants; Z86.73 Personal history of transient ischemic attack (TIA), and cerebral infarction without residual deficits; Z95.5 Presence of coronary angioplasty implant and graft; Z72.0 Tobacco use
CPT/HCPCS: 80048; 85027; 99281; 99285

== ENCOUNTER 2018-01-09 02:13 | Observation (INO) | payer OTHER ==
[~2018-01-09] VITALS: Ht 177.8 cm; Wt 72.8 kg
[2018-01-09 02:46] LABS: HEMATOCRIT 30.2 % (38.0-50.0); HEMOGLOBIN 9.8 G/DL (12.5-16.6); MCH 25.7 PG (29.0-34.0); MCHC 32.5 G/DL (30.0-36.0); MCV 79.1 FL (86-99); PLATELET COUNT 261 K/uL (156-360); RBC DIS.WIDTH-CV 22.2 % (11.8-14.6); RBC DIS.WIDTH-SD 61.4 % (39-53); RED BLOOD COUNT 3.82 M/uL (4.00-5.50); WHITE BLOOD COUNT 8.1 K/uL (4.1-10.2)
[2018-01-09 02:52] LABS: INTER. NORMALIZED RATIO 1.4
[2018-01-09 02:55] LABS: PTT 51.1 SEC (25-37)
[2018-01-09 02:59] LABS: ALBUMIN 3.4 g/dL (3.2-4.8)
[2018-01-09 03:00] LABS: CHLORIDE 104 mEq/L (99-109); POTASSIUM 5.2 mEq/L (3.7-5.4); SODIUM 134 mEq/L (136-147)
[2018-01-09 03:02] LABS: GLUCOSE 143 mg/dL (70-99); TOTAL PROTEIN 6.5 g/dL (6.4-8.3)
[2018-01-09 03:04] LABS: TOTAL BILIRUBIN 0.5 mg/dL (0.0-1.0)
[2018-01-09 03:05] LABS: ALKALINE PHOSPHATASE 93 IU/L (3-129)
[2018-01-09 03:06] LABS: CREATININE 1.9 mg/dL (0.6-1.3); GFR ESTIMATE (CALCULATED) 38 mL/min/ (58.99-99999)
[2018-01-09 03:07] LABS: AST (GOT) 56 IU/L (2-34); UREA NITROGEN (BUN) 37 mg/dL (9-23)
[2018-01-09 03:08] LABS: ALT (GPT) 32 IU/L (3-49)
[2018-01-09 03:10] LABS: TROP-I INTERPRETATION NEGATIVE; TROPONIN-I 0.07 ng/mL (0.0-0.30)
[2018-01-09 08:00] LABS: TROP-I INTERPRETATION NEGATIVE; TROPONIN-I 0.07 ng/mL (0.0-0.30)
[2018-01-09 11:05] VITALS: BP 134/78; BP 141/81
[2018-01-09 11:10] VITALS: BP 141/81
[2018-01-09 11:15] VITALS: BP 136/83
[2018-01-09 13:23] LABS: TROP-I INTERPRETATION NEGATIVE; TROPONIN-I 0.06 ng/mL (0.0-0.30)
[2018-01-09] MEDS ORDERED: FUROSEMIDE20 MG PO (15:17)
[2018-01-09] MEDS ORDERED: IMDUR30 MG PO (15:17)
[2018-01-09 15:43] VITALS: BP 140/81
[2018-01-09 15:43] LABS: BENZODIAZEPINES, URINE SCREEN Negative (200 ng/mL)
[2018-01-09 15:59] LABS: APPEARANCE CLEAR ((CLEAR)); BILIRUBIN NEGATIVE; BLOOD NEGATIVE; COLOR YELLOW ((YELLOW)); GLUCOSE (STRIP) 50; KETONES NEGATIVE; LEUKOCYTES NEGATIVE; NITRITE NEGATIVE; PROTEIN (STRIP) 100; SPECIFIC GRAVITY 1.012 (1.000-1.030); UROBILINOGEN 0.2 MG/DL (0.2-1.0)
[2018-01-09 16:32] LABS: BACTERIA RARE /HPF; EPITHELIAL CELLS NONE SEEN /HPF; MUCUS TRACE /LPF; UCUL ADDED? NO; WHITE BLOOD CELLS 0-5 /HPF (0-5)
[2018-01-09 20:15] LABS: TROP-I INTERPRETATION NEGATIVE; TROPONIN-I 0.05 ng/mL (0.0-0.30)
[2018-01-10 03:17] VITALS: BP 148/73
[2018-01-10 07:14] LABS: ALBUMIN 2.9 G/DL (3.2-4.8); ALKALINE PHOSPHATASE 76 IU/L (3-129); ALT (GPT) 20 IU/L (3-49); AST (GOT) 27 IU/L (2-34); CHLORIDE 105 MEQ/L (99-109); GLUCOSE 191 mg/dL (70-99); POTASSIUM 4.2 MEQ/L (3.7-5.4); SODIUM 137 MEQ/L (136-147); TOTAL BILIRUBIN 0.4 MG/DL (0.0-1.0); TOTAL PROTEIN 5.4 G/DL (6.4-8.3); UREA NITROGEN (BUN) 26 mg/dL (9-23)
[2018-01-10 07:22] LABS: CREATININE 1.2 MG/DL (0.6-1.3); GFR ESTIMATE (CALCULATED) > 59 mL/min/ (58.99-99999)
[2018-01-10 08:15] VITALS: BP 113/59
== END 2018-01-10 16:08 | disposition home or self-care (01) ==
LOC: EME 02:13 → EDOF 07:58 → ENRESERV 08:13 → EDOF 08:15 → ENRESERV 10:01 → 5WEST 10:55 → ENPENDDIS 01-10 16:00 → 5WEST 01-10 16:08
PROVIDERS: Emergency Medicine; Internal Medicine
DX: R07.89 Other chest pain (principal); N17.9 Acute kidney failure, unspecified; I12.9 Hypertensive chronic kidney disease with stage 1 through stage 4 chronic kidney disease, or unspecified chronic kidney disease; E11.22 Type 2 diabetes mellitus with diabetic chronic kidney disease; I96 Gangrene, not elsewhere classified; T20.019 Burn of unspecified degree of unspecified ear [any part, except ear drum]; G89.29 Other chronic pain; E78.5 Hyperlipidemia, unspecified; E11.51 Type 2 diabetes mellitus with diabetic peripheral angiopathy without gangrene; D64.9 Anemia, unspecified; K21.9 Gastro-esophageal reflux disease without esophagitis; Z91.19 Patient's noncompliance with other medical treatment and regimen; I65.29 Occlusion and stenosis of unspecified carotid artery; I48.0 Paroxysmal atrial fibrillation; I25.2 Old myocardial infarction; Z86.74 Personal history of sudden cardiac arrest; Z86.73 Personal history of transient ischemic attack (TIA), and cerebral infarction without residual deficits; R56.9 Unspecified convulsions; R55 Syncope and collapse; F17.200 Nicotine dependence, unspecified, uncomplicated; Z95.5 Presence of coronary angioplasty implant and graft; Z82.49 Family history of ischemic heart disease and other diseases of the circulatory system; Z83.3 Family history of diabetes mellitus; Z79.82 Long term (current) use of aspirin; Z79.4 Long term (current) use of insulin
CPT/HCPCS: 70450; 71045; 80053; 80306 90; 81003; 82948; 83880; 84484; 85027; 85610; 85730; 87502; 93005; 99202; 99281; 99284; G0378; J7030

== ENCOUNTER 2018-01-13 21:42 | Emergency (ER) | payer OTHER ==
[~2018-01-13] VITALS: Ht 175.3 cm; Wt 72.8 kg
[2018-01-13 23:10] LABS: HEMATOCRIT 30.6 % (38.0-50.0); HEMOGLOBIN 9.7 G/DL (12.5-16.6); MCH 25.3 PG (29.0-34.0); MCHC 31.7 G/DL (30.0-36.0); MCV 79.9 FL (86-99); PLATELET COUNT 213 K/uL (156-360); RBC DIS.WIDTH-CV 22.1 % (11.8-14.6); RBC DIS.WIDTH-SD 64.1 % (39-53); RED BLOOD COUNT 3.83 M/uL (4.00-5.50)
[2018-01-13 23:12] LABS: BASOPHIL (%) 0.7 % (0-1); EOSINOPHIL (%) 2.7 % (0-5); EOSINOPHIL COUNT 0.2 K/uL (0-0.3); IMMATURE GRANULOCYTE (%) 0.2 % (0.0-0.7); LYMPHOCYTE COUNT 0.8 K/uL (1.0-2.8); MONOCYTE COUNT 0.6 K/uL (0-0.8); NEUTROPHIL (%) 72.4 % (45-76); NEUTROPHIL COUNT 4.3 K/uL (1.8-6.4)
[2018-01-13 23:18] LABS: CHLORIDE 105 mEq/L (99-109); POTASSIUM 4.9 mEq/L (3.7-5.4); SODIUM 135 mEq/L (136-147)
[2018-01-13 23:19] LABS: GLUCOSE 172 mg/dL (70-99)
[2018-01-13 23:23] LABS: CREATININE 1.6 mg/dL (0.6-1.3); GFR ESTIMATE (CALCULATED) 46 mL/min/ (58.99-99999)
[2018-01-13 23:24] LABS: UREA NITROGEN (BUN) 28 mg/dL (9-23)
[2018-01-13 23:30] LABS: TROP-I INTERPRETATION NEGATIVE; TROPONIN-I 0.05 ng/mL (0.0-0.30)
[2018-01-14 01:48] LABS: TROP-I INTERPRETATION NEGATIVE; TROPONIN-I 0.04 ng/mL (0.0-0.30)
[2018-01-14 03:10] VITALS: BP 104/78
== END 2018-01-14 03:29 | disposition home or self-care (01) ==
LOC: EME 21:42
PROVIDERS: Emergency Medicine
DX: S09.90XA Unspecified injury of head, initial encounter (principal); R07.9 Chest pain, unspecified; R55 Syncope and collapse; F32.9 Major depressive disorder, single episode, unspecified; W18.30XA Fall on same level, unspecified, initial encounter; Z79.01 Long term (current) use of anticoagulants; Z79.82 Long term (current) use of aspirin; E78.5 Hyperlipidemia, unspecified; I12.0 Hypertensive chronic kidney disease with stage 5 chronic kidney disease or end stage renal disease; N18.6 End stage renal disease; I25.2 Old myocardial infarction; J44.9 Chronic obstructive pulmonary disease, unspecified; Z86.73 Personal history of transient ischemic attack (TIA), and cerebral infarction without residual deficits; K21.9 Gastro-esophageal reflux disease without esophagitis; F41.9 Anxiety disorder, unspecified; F17.200 Nicotine dependence, unspecified, uncomplicated; Z86.74 Personal history of sudden cardiac arrest; M79.7 Fibromyalgia; Z95.0 Presence of cardiac pacemaker; Z88.8 Allergy status to other drugs, medicaments and biological substances
CPT/HCPCS: 70450; 71046; 80048; 84484; 85025; 90839; 93005; 99281; 99285

== ENCOUNTER 2018-01-26 22:03 | Emergency (ER) | payer OTHER ==
[~2018-01-26] VITALS: Ht 177.8 cm; Wt 70.6 kg
[2018-01-26 22:48] LABS: HEMATOCRIT 33.4 % (38.0-50.0); HEMOGLOBIN 11.1 G/DL (12.5-16.6); MCH 26.2 PG (29.0-34.0); MCHC 33.2 G/DL (30.0-36.0); MCV 78.8 FL (86-99); PLATELET COUNT 266 K/uL (156-360); RBC DIS.WIDTH-CV 22.2 % (11.8-14.6); RBC DIS.WIDTH-SD 62.5 % (39-53); RED BLOOD COUNT 4.24 M/uL (4.00-5.50); WHITE BLOOD COUNT 8.3 K/uL (4.1-10.2)
[2018-01-26 22:57] LABS: CHLORIDE 107 mEq/L (99-109); POTASSIUM 4.1 mEq/L (3.7-5.4); SODIUM 136 mEq/L (136-147)
[2018-01-26 22:59] LABS: GLUCOSE 156 mg/dL (70-99)
[2018-01-26 23:02] LABS: CREATININE 1.7 mg/dL (0.6-1.3); GFR ESTIMATE (CALCULATED) 43 mL/min/ (58.99-99999); SERUM ETHYL ALCOHOL 35 mg/dL
[2018-01-26 23:03] LABS: UREA NITROGEN (BUN) 29 mg/dL (9-23)
[2018-01-26 23:09] LABS: TROP-I INTERPRETATION NEGATIVE; TROPONIN-I 0.05 ng/mL (0.0-0.30)
[2018-01-27 01:57] LABS: TROP-I INTERPRETATION NEGATIVE; TROPONIN-I 0.06 ng/mL (0.0-0.30)
[2018-01-27 02:14] LABS: ALBUMIN 3.3 g/dL (3.2-4.8)
[2018-01-27 02:17] LABS: TOTAL PROTEIN 6.3 g/dL (6.4-8.3)
[2018-01-27 02:19] LABS: TOTAL BILIRUBIN 0.2 mg/dL (0.0-1.0)
[2018-01-27 02:20] LABS: ALKALINE PHOSPHATASE 85 IU/L (3-129)
[2018-01-27 02:22] LABS: AST (GOT) 27 IU/L (2-34); DIRECT BILIRUBIN 0.1 mg/dL (0.0-0.3)
[2018-01-27 02:23] LABS: ALT (GPT) 28 IU/L (3-49); LIPASE 137 U/L (1.0-51.0)
[2018-01-27 03:09] VITALS: BP 106/74
== END 2018-01-27 03:09 | disposition home or self-care (01) ==
LOC: EME → EDBD 22:03 → EME 01-27 03:09
PROVIDERS: Emergency Medicine
DX: R55 Syncope and collapse (principal); I12.0 Hypertensive chronic kidney disease with stage 5 chronic kidney disease or end stage renal disease; N18.6 End stage renal disease; J44.9 Chronic obstructive pulmonary disease, unspecified; E78.5 Hyperlipidemia, unspecified; K21.9 Gastro-esophageal reflux disease without esophagitis; M79.7 Fibromyalgia; I69.398 Other sequelae of cerebral infarction; H54.40 Blindness, one eye, unspecified eye; F41.9 Anxiety disorder, unspecified; F32.9 Major depressive disorder, single episode, unspecified; F17.200 Nicotine dependence, unspecified, uncomplicated; I25.2 Old myocardial infarction; Z79.82 Long term (current) use of aspirin; Z95.810 Presence of automatic (implantable) cardiac defibrillator; Z86.74 Personal history of sudden cardiac arrest; Z90.49 Acquired absence of other specified parts of digestive tract; Z88.8 Allergy status to other drugs, medicaments and biological substances
CPT/HCPCS: 71045; 80048; 80076; 83690; 84484; 85027; 93005; 99281; 99285; G0480; J2405

== ENCOUNTER 2018-02-04 20:24 | Emergency (ER) | payer OTHER ==
[~2018-02-04] VITALS: Ht 177.8 cm; Wt 74.4 kg
[2018-02-04 21:18] LABS: HEMATOCRIT 32.8 % (38.0-50.0); HEMOGLOBIN 11.2 G/DL (12.5-16.6); MCHC 34.1 G/DL (30.0-36.0); PLATELET COUNT 214 K/uL (156-360); RBC DIS.WIDTH-CV 22.8 % (11.8-14.6); RBC DIS.WIDTH-SD 64.5 % (39-53); RED BLOOD COUNT 4.15 M/uL (4.00-5.50); WHITE BLOOD COUNT 6.8 K/uL (4.1-10.2)
[2018-02-04 21:28] LABS: CHLORIDE 108 mEq/L (99-109); POTASSIUM 3.9 mEq/L (3.7-5.4); SODIUM 134 mEq/L (136-147)
[2018-02-04 21:30] LABS: GLUCOSE 130 mg/dL (70-99)
[2018-02-04 21:34] LABS: CREATININE 1.5 mg/dL (0.6-1.3); GFR ESTIMATE (CALCULATED) 50 mL/min/ (58.99-99999); UREA NITROGEN (BUN) 25 mg/dL (9-23)
[2018-02-04 21:40] LABS: TROP-I INTERPRETATION NEGATIVE; TROPONIN-I 0.07 ng/mL (0.0-0.30)
[2018-02-05 00:05] LABS: TROP-I INTERPRETATION NEGATIVE; TROPONIN-I 0.08 ng/mL (0.0-0.30)
[2018-02-05 02:12] LABS: TROP-I INTERPRETATION NEGATIVE; TROPONIN-I 0.07 ng/mL (0.0-0.30)
[2018-02-05 02:45] VITALS: BP 136/78
== END 2018-02-05 02:48 | disposition home or self-care (01) ==
LOC: EME → EDBD 20:24 → EME 20:24
PROVIDERS: Emergency Medicine
DX: R07.9 Chest pain, unspecified (principal); R55 Syncope and collapse; M54.2 Cervicalgia; R51 Headache; Z91.81 History of falling; I12.0 Hypertensive chronic kidney disease with stage 5 chronic kidney disease or end stage renal disease; E11.22 Type 2 diabetes mellitus with diabetic chronic kidney disease; N18.6 End stage renal disease; I48.91 Unspecified atrial fibrillation; I25.2 Old myocardial infarction; Z86.74 Personal history of sudden cardiac arrest; Z95.811 Presence of heart assist device; Z95.5 Presence of coronary angioplasty implant and graft; Z86.73 Personal history of transient ischemic attack (TIA), and cerebral infarction without residual deficits; Z79.82 Long term (current) use of aspirin; Z79.4 Long term (current) use of insulin; Z79.01 Long term (current) use of anticoagulants; F17.200 Nicotine dependence, unspecified, uncomplicated
CPT/HCPCS: 70450; 71046; 80048; 84484; 85027; 93005; 99281; 99285

== ENCOUNTER 2018-02-19 23:48 | Emergency (ER) | payer OTHER ==
[~2018-02-19] VITALS: Ht 172.7 cm; Wt 72.9 kg
[2018-02-20 00:27] LABS: HEMATOCRIT 35.9 % (38.0-50.0); HEMOGLOBIN 12.5 G/DL (12.5-16.6); MCH 28.4 PG (29.0-34.0); MCHC 34.8 G/DL (30.0-36.0); MCV 81.6 FL (86-99); PLATELET COUNT 224 K/uL (156-360); RBC DIS.WIDTH-CV 22.4 % (11.8-14.6); RBC DIS.WIDTH-SD 64.8 % (39-53); WHITE BLOOD COUNT 7.8 K/uL (4.1-10.2)
[2018-02-20 00:37] LABS: CHLORIDE 110 mEq/L (99-109); SODIUM 136 mEq/L (136-147)
[2018-02-20 00:39] LABS: GLUCOSE 148 mg/dL (70-99)
[2018-02-20 00:43] LABS: CREATININE 1.5 mg/dL (0.6-1.3); GFR ESTIMATE (CALCULATED) 50 mL/min/ (58.99-99999)
[2018-02-20 00:44] LABS: UREA NITROGEN (BUN) 30 mg/dL (9-23)
[2018-02-20 00:48] LABS: TROP-I INTERPRETATION NEGATIVE; TROPONIN-I 0.09 ng/mL (0.0-0.30)
[2018-02-20 01:21] LABS: SERUM ETHYL ALCOHOL 41 mg/dL
[2018-02-20 03:25] LABS: TROP-I INTERPRETATION NEGATIVE; TROPONIN-I 0.09 ng/mL (0.0-0.30)
[2018-02-20 03:47] LABS: APPEARANCE SL.HAZY ((CLEAR)); BILIRUBIN NEGATIVE; BLOOD SMALL; COLOR YELLOW ((YELLOW)); GLUCOSE (STRIP) 50; KETONES NEGATIVE; LEUKOCYTES NEGATIVE; NITRITE NEGATIVE; PROTEIN (STRIP) >=500; SPECIFIC GRAVITY 1.012 (1.000-1.030); UROBILINOGEN 0.2 MG/DL (0.2-1.0)
[2018-02-20 03:55] LABS: BACTERIA NONE SEEN /HPF; EPITHELIAL CELLS RARE /HPF; HYALINE CASTS 0-5 /LPF; MUCUS TRACE /LPF; RED BLOOD CELLS 0-5 /HPF (0-5); UCUL ADDED? NO; WHITE BLOOD CELLS 0-5 /HPF (0-5)
[2018-02-20 04:30] VITALS: BP 121/76
== END 2018-02-20 04:31 | disposition home or self-care (01) ==
LOC: EME 23:48
PROVIDERS: Emergency Medicine
DX: R55 Syncope and collapse (principal); R51 Headache; F10.10 Alcohol abuse, uncomplicated; I12.0 Hypertensive chronic kidney disease with stage 5 chronic kidney disease or end stage renal disease; N18.6 End stage renal disease; E11.22 Type 2 diabetes mellitus with diabetic chronic kidney disease; J44.9 Chronic obstructive pulmonary disease, unspecified; K21.9 Gastro-esophageal reflux disease without esophagitis; E78.5 Hyperlipidemia, unspecified; M79.7 Fibromyalgia; I25.2 Old myocardial infarction; F41.9 Anxiety disorder, unspecified; F32.9 Major depressive disorder, single episode, unspecified; Z86.73 Personal history of transient ischemic attack (TIA), and cerebral infarction without residual deficits; Z86.74 Personal history of sudden cardiac arrest; Z79.82 Long term (current) use of aspirin; Z72.0 Tobacco use; Z88.6 Allergy status to analgesic agent; Z88.8 Allergy status to other drugs, medicaments and biological substances
CPT/HCPCS: 70450; 80048; 81003; 84484; 85027; 93005; 99281; 99285; G0480

== ENCOUNTER 2018-03-05 18:21 | Emergency (ER) | payer OTHER ==
[~2018-03-05] VITALS: Ht 177.8 cm; Wt 72.5 kg
[2018-03-05 19:39] LABS: BASOPHIL (%) 0.1 % (0-1); EOSINOPHIL (%) 0.4 % (0-5); HEMATOCRIT 33.5 % (38.0-50.0); HEMOGLOBIN 12.1 G/DL (12.5-16.6); IMMATURE GRANULOCYTE (%) 0.3 % (0.0-0.7); LYMPHOCYTE (%) 7.9 % (15-42); LYMPHOCYTE COUNT 0.6 K/uL (1.0-2.8); MCH 29.4 PG (29.0-34.0); MCHC 36.1 G/DL (30.0-36.0); MCV 81.3 FL (86-99); MONOCYTE (%) 8.5 % (3-12); MONOCYTE COUNT 0.7 K/uL (0-0.8); NEUTROPHIL (%) 82.8 % (45-76); NEUTROPHIL COUNT 6.6 K/uL (1.8-6.4); PLATELET COUNT 243 K/uL (156-360); RBC DIS.WIDTH-CV 19.1 % (11.8-14.6); RBC DIS.WIDTH-SD 55.7 % (39-53); RED BLOOD COUNT 4.12 M/uL (4.00-5.50)
[2018-03-05 19:48] LABS: APPEARANCE CLEAR ((CLEAR)); BILIRUBIN NEGATIVE; BLOOD SMALL; COLOR YELLOW ((YELLOW)); GLUCOSE (STRIP) 150; KETONES NEGATIVE; LEUKOCYTES NEGATIVE; NITRITE NEGATIVE; PROTEIN (STRIP) >=500; SPECIFIC GRAVITY 1.013 (1.000-1.030); UROBILINOGEN 0.2 MG/DL (0.2-1.0)
[2018-03-05 19:48] LABS: ALBUMIN 3.2 g/dL (3.2-4.8)
[2018-03-05 19:49] LABS: CHLORIDE 110 mEq/L (99-109); SODIUM 140 mEq/L (136-147)
[2018-03-05 19:51] LABS: GLUCOSE 168 mg/dL (70-99); TOTAL PROTEIN 6.1 g/dL (6.4-8.3)
[2018-03-05 19:53] LABS: TOTAL BILIRUBIN 0.4 mg/dL (0.0-1.0)
[2018-03-05 19:54] LABS: ALKALINE PHOSPHATASE 103 IU/L (3-129)
[2018-03-05 19:55] LABS: CREATININE 1.8 mg/dL (0.6-1.3); GFR ESTIMATE (CALCULATED) 40 mL/min/ (58.99-99999)
[2018-03-05 19:56] LABS: AST (GOT) 27 IU/L (2-34); UREA NITROGEN (BUN) 25 mg/dL (9-23)
[2018-03-05 19:58] LABS: BACTERIA NONE SEEN /HPF; EPITHELIAL CELLS RARE /HPF; MUCUS TRACE /LPF; RED BLOOD CELLS 0-5 /HPF (0-5); UCUL ADDED? NO; WHITE BLOOD CELLS 0-5 /HPF (0-5)
[2018-03-05 19:58] LABS: ALT (GPT) 23 IU/L (3-49)
[2018-03-05 20:00] LABS: TROP-I INTERPRETATION NEGATIVE; TROPONIN-I 0.05 ng/mL (0.0-0.30)
[2018-03-05 22:21] LABS: SERUM ETHYL ALCOHOL < 10 mg/dL
[2018-03-05 23:02] LABS: TROP-I INTERPRETATION NEGATIVE; TROPONIN-I 0.06 ng/mL (0.0-0.30)
[2018-03-05 23:22] VITALS: BP 120/85
== END 2018-03-05 23:26 | disposition home or self-care (01) ==
LOC: EME 18:21
PROVIDERS: Emergency Medicine
DX: R55 Syncope and collapse (principal); E86.0 Dehydration; G89.29 Other chronic pain; R07.9 Chest pain, unspecified; I48.91 Unspecified atrial fibrillation; Z79.82 Long term (current) use of aspirin; I12.0 Hypertensive chronic kidney disease with stage 5 chronic kidney disease or end stage renal disease; N18.6 End stage renal disease; E11.22 Type 2 diabetes mellitus with diabetic chronic kidney disease; E78.5 Hyperlipidemia, unspecified; J44.9 Chronic obstructive pulmonary disease, unspecified; K21.9 Gastro-esophageal reflux disease without esophagitis; M79.7 Fibromyalgia; R56.9 Unspecified convulsions; I69.398 Other sequelae of cerebral infarction; H54.40 Blindness, one eye, unspecified eye; I25.2 Old myocardial infarction; F32.9 Major depressive disorder, single episode, unspecified; F41.9 Anxiety disorder, unspecified; F17.210 Nicotine dependence, cigarettes, uncomplicated; Z87.19 Personal history of other diseases of the digestive system; Z90.49 Acquired absence of other specified parts of digestive tract; Z86.74 Personal history of sudden cardiac arrest; Z95.810 Presence of automatic (implantable) cardiac defibrillator; Z95.5 Presence of coronary angioplasty implant and graft; Z79.4 Long term (current) use of insulin; Z88.1 Allergy status to other antibiotic agents; Z88.8 Allergy status to other drugs, medicaments and biological substances
CPT/HCPCS: 71046; 78582; 80053; 81003; 84484; 85025; 85379; 93005; 99281; 99285; A9540; A9567; G0480; J2405; J3010; J7030

== ENCOUNTER 2018-03-07 17:27 | Inpatient (IN) | payer OTHER ==
[~2018-03-07] VITALS: Ht 177.8 cm; Wt 70.9 kg
[2018-03-07 17:42] LABS: BASOPHIL (%) 0.3 % (0-1); EOSINOPHIL (%) 1.1 % (0-5); EOSINOPHIL COUNT 0.1 K/uL (0-0.3); HEMATOCRIT 37.1 % (38.0-50.0); LYMPHOCYTE (%) 9.8 % (15-42); LYMPHOCYTE COUNT 0.6 K/uL (1.0-2.8); MCH 29.2 PG (29.0-34.0); MCV 83.4 FL (86-99); MONOCYTE (%) 6.9 % (3-12); MONOCYTE COUNT 0.4 K/uL (0-0.8); NEUTROPHIL (%) 80.9 % (45-76); PLATELET COUNT 270 K/uL (156-360); RBC DIS.WIDTH-CV 19.2 % (11.8-14.6); RED BLOOD COUNT 4.45 M/uL (4.00-5.50); WHITE BLOOD COUNT 6.2 K/uL (4.1-10.2)
[2018-03-07 17:51] LABS: AMYLASE 194 IU/L (1-118); CHLORIDE 110 mEq/L (99-109); POTASSIUM 4.3 mEq/L (3.7-5.4); SODIUM 140 mEq/L (136-147)
[2018-03-07 17:53] LABS: GLUCOSE 205 mg/dL (70-99)
[2018-03-07 17:56] LABS: SERUM ETHYL ALCOHOL < 10 mg/dL
[2018-03-07 17:57] LABS: CREATININE 1.7 mg/dL (0.6-1.3); GFR ESTIMATE (CALCULATED) 43 mL/min/ (58.99-99999)
[2018-03-07 17:58] LABS: UREA NITROGEN (BUN) 16 mg/dL (9-23)
[2018-03-07 18:00] LABS: LIPASE 120 U/L (1.0-51.0)
[2018-03-07 21:27] LABS: APPEARANCE CLEAR ((CLEAR)); BILIRUBIN NEGATIVE; BLOOD SMALL; COLOR YELLOW ((YELLOW)); GLUCOSE (STRIP) 50; KETONES NEGATIVE; LEUKOCYTES NEGATIVE; NITRITE NEGATIVE; PROTEIN (STRIP) >=500; SPECIFIC GRAVITY 1.032 (1.000-1.030); UROBILINOGEN 0.2 MG/DL (0.2-1.0)
[2018-03-07 21:34] LABS: BACTERIA NONE SEEN /HPF; EPITHELIAL CELLS RARE /HPF; HYALINE CASTS 0-5 /LPF; MUCUS TRACE /LPF; RED BLOOD CELLS 0-5 /HPF (0-5); UCUL ADDED? NO; WHITE BLOOD CELLS 0-5 /HPF (0-5)
[2018-03-07 21:37] LABS: AMPHETAMINE NEGATIVE (500 ng/mL); BARBITURATES NEGATIVE (200 ng/mL); BENZODIAZEPINES NEGATIVE (150 ng/mL); BUPRENORPHINE NEGATIVE (10 ng/mL); COCAINE NEGATIVE (150 ng/mL); METHADONE NEGATIVE (200 ng/mL); METHAMPHETAMINE NEGATIVE (500 ng/mL); OPIATES (MORPHINE) NEGATIVE (100 ng/mL); OXYCODONE NEGATIVE (100 ng/mL); PHENCYCLIDINE NEGATIVE (25 ng/mL); PROPOXYPHENE NEGATIVE (300 ng/mL); THC CANNABINOIDS NEGATIVE (50 ng/mL); TRICYCLIC ANTIDEPRESSANTS NEGATIVE (300 ng/mL)
[2018-03-07 22:03] VITALS: BP 156/100
[2018-03-07 23:34] VITALS: BP 132/62
[2018-03-08 04:12] VITALS: BP 127/61
[2018-03-08 05:58] LABS: BASOPHIL (%) 0.5 % (0-1); EOSINOPHIL (%) 1.5 % (0-5); EOSINOPHIL COUNT 0.1 K/uL (0-0.3); HEMATOCRIT 29.4 % (38.0-50.0); HEMOGLOBIN 10.2 G/DL (12.5-16.6); IMMATURE GRANULOCYTE (%) 0.5 % (0.0-0.7); LYMPHOCYTE (%) 14.3 % (15-42); LYMPHOCYTE COUNT 1.2 K/uL (1.0-2.8); MCH 29.1 PG (29.0-34.0); MCHC 34.7 G/DL (30.0-36.0); MONOCYTE (%) 11.5 % (3-12); MONOCYTE COUNT 0.9 K/uL (0-0.8); NEUTROPHIL (%) 71.7 % (45-76); NEUTROPHIL COUNT 5.9 K/uL (1.8-6.4); PLATELET COUNT 239 K/uL (156-360); RBC DIS.WIDTH-CV 19.2 % (11.8-14.6); RBC DIS.WIDTH-SD 58.6 % (39-53); WHITE BLOOD COUNT 8.2 K/uL (4.1-10.2)
[2018-03-08 06:21] LABS: ALBUMIN 2.7 G/DL (3.2-4.8); ALKALINE PHOSPHATASE 81 IU/L (3-129); ALT (GPT) 15 IU/L (3-49); AST (GOT) 19 IU/L (2-34); CHLORIDE 106 MEQ/L (99-109); CREATININE 1.4 MG/DL (0.6-1.3); DIRECT BILIRUBIN 0.1 mg/dL (0.0-0.3); GFR ESTIMATE (CALCULATED) 54 mL/min/ (58.99-99999); POTASSIUM 3.5 MEQ/L (3.7-5.4); SODIUM 137 MEQ/L (136-147); TOTAL BILIRUBIN 0.6 MG/DL (0.0-1.0); TOTAL PROTEIN 5.2 G/DL (6.4-8.3)
[2018-03-08 06:24] LABS: GLUCOSE 118 mg/dL (70-99); UREA NITROGEN (BUN) 35 mg/dL (9-23)
[2018-03-08 08:00] VITALS: BP 123/59; BP 169/80
[2018-03-08 10:42] LABS: HEMOGLOBIN A1c (GLYCOHEMOGLOB) 6.7 % (Below 5.7)
[2018-03-08 15:10] VITALS: BP 111/69
[2018-03-08 15:26] LABS: BASOPHIL (%) 0.3 % (0-1); EOSINOPHIL (%) 1.6 % (0-5); EOSINOPHIL COUNT 0.1 K/uL (0-0.3); HEMATOCRIT 23.7 % (38.0-50.0); IMMATURE GRANULOCYTE (%) 0.3 % (0.0-0.7); LYMPHOCYTE (%) 16.8 % (15-42); LYMPHOCYTE COUNT 1.1 K/uL (1.0-2.8); MCHC 34.2 G/DL (30.0-36.0); MCV 84.9 FL (86-99); MONOCYTE (%) 11.7 % (3-12); MONOCYTE COUNT 0.8 K/uL (0-0.8); NEUTROPHIL (%) 69.3 % (45-76); NEUTROPHIL COUNT 4.7 K/uL (1.8-6.4); PLATELET COUNT 203 K/uL (156-360); RBC DIS.WIDTH-CV 19.3 % (11.8-14.6); RBC DIS.WIDTH-SD 59.7 % (39-53); WHITE BLOOD COUNT 6.7 K/uL (4.1-10.2)
[2018-03-08 15:27] LABS: HEMOGLOBIN 8.1 G/DL (12.5-16.6); RED BLOOD COUNT 2.79 M/uL (4.00-5.50)
[2018-03-09 00:05] VITALS: BP 129/74
[2018-03-09 06:10] LABS: BASOPHIL (%) 0.2 % (0-1); EOSINOPHIL (%) 1.6 % (0-5); EOSINOPHIL COUNT 0.1 K/uL (0-0.3); HEMATOCRIT 23.9 % (38.0-50.0); IMMATURE GRANULOCYTE (%) 0.4 % (0.0-0.7); LYMPHOCYTE (%) 11.4 % (15-42); LYMPHOCYTE COUNT 0.9 K/uL (1.0-2.8); MCH 28.6 PG (29.0-34.0); MCHC 33.5 G/DL (30.0-36.0); MCV 85.4 FL (86-99); MONOCYTE (%) 8.6 % (3-12); MONOCYTE COUNT 0.7 K/uL (0-0.8); NEUTROPHIL (%) 77.8 % (45-76); NEUTROPHIL COUNT 6.4 K/uL (1.8-6.4); PLATELET COUNT 192 K/uL (156-360); RBC DIS.WIDTH-CV 19.5 % (11.8-14.6); RBC DIS.WIDTH-SD 61.1 % (39-53); WHITE BLOOD COUNT 8.2 K/uL (4.1-10.2)
[2018-03-09 06:37] LABS: CHLORIDE 114 MEQ/L (99-109); CREATININE 1.4 MG/DL (0.6-1.3); GFR ESTIMATE (CALCULATED) 54 mL/min/ (58.99-99999); GLUCOSE 133 mg/dL (70-99); POTASSIUM 3.6 MEQ/L (3.7-5.4); SODIUM 140 MEQ/L (136-147); UREA NITROGEN (BUN) 35 mg/dL (9-23)
[2018-03-09 08:41] VITALS: BP 125/70
[2018-03-09 09:27] LABS: ALBUMIN 2.4 G/DL (3.2-4.8); ALKALINE PHOSPHATASE 64 IU/L (3-129); ALT (GPT) 12 IU/L (3-49); AST (GOT) 14 IU/L (2-34); DIRECT BILIRUBIN 0.1 mg/dL (0.0-0.3); MAGNESIUM 1.5 mg/dl (1.3-2.7)
[2018-03-09 09:42] LABS: TOTAL BILIRUBIN 0.3 MG/DL (0.0-1.0); TOTAL PROTEIN 4.3 G/DL (6.4-8.3)
[2018-03-09 12:12] VITALS: BP 134/79
[2018-03-09 17:05] VITALS: BP 116/69
[2018-03-09 23:44] VITALS: BP 139/69
[2018-03-10] VITALS (11 sets, daily range): BP systolic 101–149; BP diastolic 58–87
[2018-03-10 05:55] LABS: BASOPHIL (%) 0.4 % (0-1); EOSINOPHIL (%) 2.5 % (0-5); EOSINOPHIL COUNT 0.2 K/uL (0-0.3); HEMATOCRIT 22.4 % (38.0-50.0); HEMOGLOBIN 7.4 G/DL (12.5-16.6); IMMATURE GRANULOCYTE (%) 0.4 % (0.0-0.7); LYMPHOCYTE (%) 14.8 % (15-42); MCH 28.8 PG (29.0-34.0); MCV 87.2 FL (86-99); MONOCYTE (%) 7.7 % (3-12); MONOCYTE COUNT 0.5 K/uL (0-0.8); NEUTROPHIL (%) 74.2 % (45-76); NEUTROPHIL COUNT 5.1 K/uL (1.8-6.4); PLATELET COUNT 170 K/uL (156-360); RBC DIS.WIDTH-CV 19.8 % (11.8-14.6); RBC DIS.WIDTH-SD 62.4 % (39-53); RED BLOOD COUNT 2.57 M/uL (4.00-5.50); WHITE BLOOD COUNT 6.9 K/uL (4.1-10.2)
[2018-03-10 06:24] LABS: ALBUMIN 2.6 G/DL (3.2-4.8); ALKALINE PHOSPHATASE 70 IU/L (3-129); ALT (GPT) 12 IU/L (3-49); AST (GOT) 12 IU/L (2-34); CHLORIDE 110 MEQ/L (99-109); CREATININE 1.3 MG/DL (0.6-1.3); GFR ESTIMATE (CALCULATED) 59 mL/min/ (58.99-99999); GLUCOSE 123 mg/dL (70-99); POTASSIUM 4.2 MEQ/L (3.7-5.4); SODIUM 137 MEQ/L (136-147); TOTAL BILIRUBIN 0.3 MG/DL (0.0-1.0); TOTAL PROTEIN 4.9 G/DL (6.4-8.3); UREA NITROGEN (BUN) 23 mg/dL (9-23)
[2018-03-11] VITALS (7 sets, daily range): BP systolic 129–152; BP diastolic 76–90
[2018-03-11 05:44] LABS: BASOPHIL (%) 0.4 % (0-1); EOSINOPHIL (%) 2.6 % (0-5); EOSINOPHIL COUNT 0.2 K/uL (0-0.3); HEMATOCRIT 28.6 % (38.0-50.0); IMMATURE GRANULOCYTE (%) 0.4 % (0.0-0.7); LYMPHOCYTE (%) 15.7 % (15-42); LYMPHOCYTE COUNT 1.1 K/uL (1.0-2.8); MCH 29.2 PG (29.0-34.0); MCHC 33.9 G/DL (30.0-36.0); MCV 86.1 FL (86-99); MONOCYTE (%) 8.4 % (3-12); MONOCYTE COUNT 0.6 K/uL (0-0.8); NEUTROPHIL (%) 72.5 % (45-76); NEUTROPHIL COUNT 4.9 K/uL (1.8-6.4); PLATELET COUNT 183 K/uL (156-360); WHITE BLOOD COUNT 6.8 K/uL (4.1-10.2)
[2018-03-11 05:45] LABS: HEMOGLOBIN 9.7 G/DL (12.5-16.6); RED BLOOD COUNT 3.32 M/uL (4.00-5.50)
[2018-03-11 06:03] LABS: CHLORIDE 112 MEQ/L (99-109); CREATININE 1.2 MG/DL (0.6-1.3); GFR ESTIMATE (CALCULATED) > 59 mL/min/ (58.99-99999); GLUCOSE 118 mg/dL (70-99); POTASSIUM 4.4 MEQ/L (3.7-5.4); SODIUM 139 MEQ/L (136-147); UREA NITROGEN (BUN) 18 mg/dL (9-23)
[2018-03-12 03:53] VITALS: BP 134/86
[2018-03-12 08:19] VITALS: BP 145/85
[2018-03-12 11:55] VITALS: BP 139/83
[2018-03-12] MEDS ORDERED: SENNA PLUS TAB1 EACH PO (13:47)
[2018-03-12] MEDS ORDERED: CITALOPRAM HBR10 MG PO (13:47)
[2018-03-12] MEDS ORDERED: ENDOCET 5-3251 EACH PO (13:48)
[2018-03-12 15:46] VITALS: BP 132/83
[2018-03-13] MEDS ORDERED: OLANZAPINE5 MG PO (14:46)
[2018-03-13] MEDS ORDERED: MIRTAZAPINE15 MG PO (14:46)
== END 2018-03-12 19:59 | DRG 89 ==
LOC: TRA 17:27 → EDOF 20:24 → 3EAST 20:24 → ENRESERV 20:28 → 3EAST 21:18
PROVIDERS: Emergency Medicine; Hospitalist; Internal Medicine; Student in an Organized Health Care Education/Training Program
PROC: 09JY8ZZ Inspection of Sinus, Via Natural or Artificial Opening Endoscopic (ICD-10-PCS; principal; 2018-03-08)
DX: S06.0X9A Concussion with loss of consciousness of unspecified duration, initial encounter (principal); I13.0 Hypertensive heart and chronic kidney disease with heart failure and stage 1 through stage 4 chronic kidney disease, or unspecified chronic kidney disease; S01.81XA Laceration without foreign body of other part of head, initial encounter; I48.0 Paroxysmal atrial fibrillation; I50.9 Heart failure, unspecified; N18.3 Chronic kidney disease, stage 3 (moderate); E11.22 Type 2 diabetes mellitus with diabetic chronic kidney disease; W10.9XXA Fall (on) (from) unspecified stairs and steps, initial encounter; Y92.009 Unspecified place in unspecified non-institutional (private) residence as the place of occurrence of the external cause; Z91.19 Patient's noncompliance with other medical treatment and regimen; Z86.73 Personal history of transient ischemic attack (TIA), and cerebral infarction without residual deficits; D62 Acute posthemorrhagic anemia; E11.51 Type 2 diabetes mellitus with diabetic peripheral angiopathy without gangrene; E78.5 Hyperlipidemia, unspecified; E87.6 Hypokalemia; G40.409 Other generalized epilepsy and epileptic syndromes, not intractable, without status epilepticus; I25.10 Atherosclerotic heart disease of native coronary artery without angina pectoris; R04.0 Epistaxis; F17.200 Nicotine dependence, unspecified, uncomplicated; F41.1 Generalized anxiety disorder; Z79.01 Long term (current) use of anticoagulants; S62.521A Displaced fracture of distal phalanx of right thumb, initial encounter for closed fracture; R45.851 Suicidal ideations; J44.9 Chronic obstructive pulmonary disease, unspecified; F09 Unspecified mental disorder due to known physiological condition; I65.22 Occlusion and stenosis of left carotid artery; K21.9 Gastro-esophageal reflux disease without esophagitis; J34.2 Deviated nasal septum; Z79.4 Long term (current) use of insulin
CPT/HCPCS: 70450; 70486; 71046; 71260; 72125; 72129; 72132; 73140; 73560; 74177; 78582; 80048; 80053; 80076; 81003; 82150; 82248; 82272; 82948; 83036; 83690; 83735; 84484; 85025; 85025 91; 85379; 86850; 86900; 86901; 86920; 93005; 94640; 99202; 99281; 99285; A9540; A9567; G0480; J1815; J2405; J3010; J3475; J7030; P9016

== ENCOUNTER 2018-03-12 18:57 | Inpatient (IN) | payer OTHER ==
[~2018-03-12] VITALS: Ht 177.8 cm; Wt 84.0 kg
[~2018-03-12 18:57] MED LIST changes: +CITALOPRAM HBR10 MG PO; +SENNA PLUS TAB1 EACH PO
[2018-03-12 20:22] VITALS: BP 124/72
[2018-03-12 20:25] VITALS: BP 124/72
[2018-03-13 07:47] VITALS: BP 141/74
[2018-03-13] MEDS ORDERED: OLANZAPINE5 MG PO (14:46)
[2018-03-13] MEDS ORDERED: MIRTAZAPINE15 MG PO (14:46)
[2018-03-13 15:28] VITALS: BP 112/59
== END 2018-03-13 18:13 | DRG 881 ==
LOC: 1WEST 18:57 → ENRESERV 18:58 → EDOF 20:07 → 1WEST 20:07
PROVIDERS: Psychiatry & Neurology Psychiatry
DX: F32.9 Major depressive disorder, single episode, unspecified (principal); R45.851 Suicidal ideations; F09 Unspecified mental disorder due to known physiological condition; F41.1 Generalized anxiety disorder; I48.0 Paroxysmal atrial fibrillation; N18.3 Chronic kidney disease, stage 3 (moderate); E11.22 Type 2 diabetes mellitus with diabetic chronic kidney disease; I65.29 Occlusion and stenosis of unspecified carotid artery; Z87.891 Personal history of nicotine dependence; Z91.81 History of falling; Z86.73 Personal history of transient ischemic attack (TIA), and cerebral infarction without residual deficits; Z79.891 Long term (current) use of opiate analgesic; Z79.02 Long term (current) use of antithrombotics/antiplatelets; Z79.4 Long term (current) use of insulin; Z79.01 Long term (current) use of anticoagulants
CPT/HCPCS: 82948; 99202; J1815